=== PATIENT | female | born 1965 | race Caucasian/White ===

== ENCOUNTER 2017-06-10 12:20 | Outpatient (CLI) | payer MEDICARE | END 2017-06-10 12:21 | disposition home or self-care (01) | LOC: CP 12:20 | PROVIDERS: ATTEND Internal Medicine | DX: J44.9 Chronic obstructive pulmonary disease, unspecified (principal); J96.11 Chronic respiratory failure with hypoxia | CPT/HCPCS: 94060; 94727; 94729 ==

== ENCOUNTER 2017-07-05 04:56 | Inpatient (IN) | payer MEDICARE ==
[2017-07-05] MEDS ORDERED: Ondansetron HCl/PF 4 MG/2 ML Vial IVP PRN (07:50)
[2017-07-05] MEDS ORDERED: Acetaminophen 325 MG TAB PO PRN ×2 (07:51→11:52)
[2017-07-05] MEDS ORDERED: Ondansetron ODT 4 MG TAB PO PRN (07:51)
[2017-07-05 08:53] VITALS: BMI 16.6
[2017-07-05] MEDS ORDERED: cefTRIAXone\\ROCEPHIN 1 GM, Syringe 0.4 ML in Sterile Water 9.6 ML SLOW IVP SCH (09:00)
[2017-07-05] MEDS ORDERED: Mag-Al 1200 mg/1200 mg/30 ML UDCUP PO PRN (11:52)
[2017-07-05] MEDS ORDERED: Guaifenesin DM 100-10/5 ML UDCUP PO PRN (11:52)
[2017-07-05] MEDS ORDERED: Senokot 8.6 MG TAB PO PRN (11:52)
--- NOTE | 2017-07-05 13:17 | CON ---
DATE OF CONSULTATION: 07/05/2017 CONSULTING PHYSICIAN: Dr. Araya REASON FOR CONSULTATION: COPD exacerbation. HISTORY OF PRESENT ILLNESS: This is a 52-year-old female who sees Dr. Scott Louie in the office for pulmonary concerns. She has a history of COPD, asthma, Irlanda's granulomatosis. She also smo kes heavily and also smokes crack on an almost daily basis. She came to the emergency room today wi th a 2-3 day history of increasing shortness of breath. She was given some breathing treatments and feels better. PAST MEDICAL HISTORY: See above. PAST SURGICAL HISTORY: Neck fusion surgery and knee surgery. ALLERGIES: None. MEDICATIONS PRIOR TO ADMISSION: Trazodone, prednisone, guaifenesin, Seroquel, Levaquin, Atrovent, g abapentin, Depakote, Cymbalta, Cytoxan, Symbicort and ProAir HFA. FAMILY MEDICAL HISTORY: Remarkable for heart disease, hypertension, arthritis. SOCIAL HISTORY: See above. REVIEW OF SYSTEMS: Twelve point review of systems otherwise negative. PHYSICAL EXAMINATION: VITAL SIGNS: Temperature 97.8, pulse 92, respirations 16, O2 sat 94%, blood pressure 120/71. GENERAL: She is awake and alert and in no distress. HEENT: Unremarkable. NECK: No JVD, no bruits. LUNGS: Expiratory wheezing bilaterally, which I would characterize as mild. CARDIOVASCULAR: S1, S2 regular, without murmur, rub or gallop. ABDOMEN: Soft and nontender. EXTREMITIES: No clubbing, cyanosis, or edema. LABORATORY AND X-RAY FINDINGS: PFTs done recently demonstrated severe obstructive ventilatory impai rment. Her alpha 1 trypsin phenotype was MZ, but her level was 113.8. ASSESSMENT: 1. Chronic obstructive pulmonary disease with exacerbation. 2. Tobacco and cocaine abuse. 3. Heterozygote MZ for alpha 1 antitrypsin. 4. History of Irlanda's granulomatosis, currently under therapy through another provider - I am not completely sure of the history on that. RECOMMENDATIONS: I agree with high dose steroids, nebulization treatments and empiric antibiotics. Currently, her x-ray does not show any evidence of pneumonia. She has been told she needs to quit smoking tobacco and crack cocaine, although I doubt that she will comply with either. She is not a candidate for alpha 1 antitrypsin infusion therapy at this time.
[2017-07-05] MEDS: Nicotine 21 MG PATCH TOP SCH (13:49)
[2017-07-05] MEDS: Sodium Chloride 0.9% 1,000 ML IV SCH (13:49)
--- NOTE | 2017-07-05 14:10 | HP ---
REASON FOR ADMISSION: COPD exacerbation. HISTORY OF PRESENT ILLNESS: The patient gives history of having shortness of breath from last few days which has been gradually worsening. She took nebulization all day yesterday, which did not give any relief. She has been coughing up greenish yellow sputum. Had a fever of 101.3 degrees when she arrived at [facility] from where she was transferred here for higher level of care. The patient continues to smoke 1 pack a day. No complaints of chest pain or palpitation. Patient has exertional shortness of breath. No complaints of PND or abdominal pain. PAST MEDICAL AND SURGICAL HISTORY: History of Irlanda's vasculitis, COPD, dyslipidemia, hypertension, chronic back pain, COPD, right ankle surgery, neck surgery, insomnia, depression. CURRENT MEDICATIONS: Patient takes prednisone 20 mg daily, and has been doing so for the last one year, albuterol inhaler and nebulization q.6 hourly p.r.n., Seroquel 200 mg p.o. at bedtime, trazodone 400 mg p.o. at bedtime. ALLERGIES: SULFA. PERSONAL HISTORY: Smokes one pack a day, denies abusing alcohol or drugs. FAMILY HISTORY: Mother has had history of RI. Father has diabetes. Both are living. Power of compliance attorney is patient's mom. CODE STATUS: DNR. REVIEW OF SYSTEMS: The following complete review of systems was negative, unless otherwise mentioned in the HPI or below: Constitutional: Weight loss or gain, ability to conduct usual activities. Skin: Rash, itching. Eyes: Double vision, pain. ENT/Mouth: Nose bleeding, neck stiffness, pain, tenderness. Cardiovascular: Palpitations, dyspnea on exertion, orthopnea. Respiratory: Shortness of breath, wheezing, cough, hemoptysis, fever or night sweats. Gastrointestinal: Poor appetite, abdominal pain, heartburn, nausea, vomiting, constipation, or diarrhea. Genitourinary: Urgency, frequency, dysuria, nocturia. Musculoskeletal: Pain, swelling. Neurologic/Psychiatric: Anxiety, depression. Allergy/Immunologic: Skin rash, bleeding tendency. PHYSICAL EXAMINATION: GENERAL: The patient is a 52-year-old female who is currently not in any acute distress. VITAL SIGNS: Blood pressure 108/76, pulse 98 per minute, respiratory rate 20 per minute, temperature 97.9 degrees, had a temperature of 101.3 degrees at [facility], saturating 94% on 2 liters nasal cannula. NECK: Supple. No elevated JVD. HEENT: Extraocular muscles intact. Pupils reacting to light. Oral cavity mucous membranes are dry. No exudates or congestion. CARDIOVASCULAR SYSTEM: S1, S2 heard. Tachycardic, no murmur. RESPIRATORY: Air entry 1+ bilaterally. Scattered wheezes plus bilaterally. ABDOMEN: Soft, bowel sounds heard. No tenderness, rigidity or guarding. EXTREMITIES: Mild peripheral edema, no calf tenderness. VASCULAR SYSTEM: Peripheral pulses 1+ bilateral. No ischemic ulcerations or gangrene. CENTRAL NERVOUS SYSTEM: No gross focal deficits seen. Patient is alert, awake , oriented x3. PSYCHIATRIC: The patient's mood is euthymic. No hallucinations or delusions. LABORATORY AND X-RAY FINDINGS: White count of 7, H\T\H 12 and 36, platelet count is 155,000 with 85% neutrophils, MCV is 111. PT/INR/PTT 13, 1.0 and 41. Serum chloride is 97. Serum sodium is 131, BUN 17, creatinine 0.7, glucose 85. Liver enzymes within normal limits. Cardiac enzymes first set is negative. BNP is 14. Liver enzymes are within normal limits. UA is negative for any urinary tract infection. Chest x-ray done shows hyperinflated lungs with no acute consolidation or alveolar edema. EKG done shows normal sinus rhythm at 91 beats per minute. There is incomplete RBBB seen. CLINICAL IMPRESSION AND PLAN: Patient will be admitted to medical floor for acute COPD exacerbation with ongoing smoking and history of Irlanda's vasculitis. She is steroid dependent from last [address] her on Solu-Medrol 40 mg IV q.6 hourly. She had a temperature of 101 and will be started on levofloxacin. There is no acute infiltrate. There is no acute consolidation seen on the x-ray, but she has chronic changes seen in the lungs. She will be on DuoNebs q.6 hourly. We will continue her on Pepcid. Gentle hydration with normal saline at 40 mL per hour. Patient will also continue her Seroquel and hold back on her trazodone for now. Due to the elevated MCV, we will obtain folic acid and B12 levels. I have consulted Dr. Nevarez, who was cloth sponger for Dr. Louie her structural iron erector. We will continue to closely monitor her on medical floor. [facility]
[2017-07-05] MEDS: Mometasone/Formoterol 120 PUFF INHALER INH SCH (19:04)
[2017-07-05] MEDS: Famotidine 20 MG TAB PO SCH (19:52)
[2017-07-05] MEDS: guaiFENesin ER 600 MG TAB PO SCH (19:52)
[2017-07-05] MEDS ORDERED: FLU VACC QS2017-18 36 mo. & older 0.5 ML SYRINGE IM ONE (21:00)
[2017-07-06 05:32] LABS: #Lymphocytes 0.6 thou/uL (1.20-3.40); #Monocytes 0.2 thou/uL (0.11-0.59); #Neutrophils 7.6 thou/uL (1.40-6.50); %Basophils 0.2 % (0.0-1.0); %Eosinophils 0.2 % (0.0-10.0); %Monocytes 2.6 % (0.0-10.0); Hematocrit 39.5 % (36.0-47.0); Mean Platelet Volume 7.2 fL (7.4-10.4); Red Blood Cell (RBC) Count 3.45 mill/uL (4.20-5.40); White Blood Cell (WBC) Count 8.4 thou/uL (4.8-10.8)
[2017-07-06] MEDS: Mometasone/Formoterol 120 PUFF INHALER INH SCH ×2 (05:58→19:13)
[2017-07-06 06:05] LABS: Anion Gap 13 mmol/L (10-20); BUN (Urea Nitrogen) 24 mg/dL (9.8-20.1); Calc. Creatinine Clearance 61 mL/min (70-130); Carbon Dioxide 23 mmol/L (22-29); Chloride 101 mmol/L (98-107); Estimated GFR-MDRD 74
[2017-07-06] MEDS: Famotidine 20 MG TAB PO SCH ×2 (08:05→21:16)
[2017-07-06] MEDS: Enoxaparin Sodium 30 MG/0.3 ML SYRINGE SC SCH (08:05)
[2017-07-06] MEDS: guaiFENesin ER 600 MG TAB PO SCH ×2 (08:05→21:16)
--- NOTE | 2017-07-06 08:52 | PRG ---
DATE OF SERVICE: 07/06/2017 SUBJECTIVE: She feels better today. She is still very anxious. PHYSICAL EXAMINATION: VITAL SIGNS: Temperature is 98.0, pulse 94, respiration rate 16, O2 sat 93% on 2 liters, blood pres sure 106/71. HEENT: Unremarkable. NECK: No JVD. LUNGS: Expiratory wheezing bilaterally. CARDIOVASCULAR: S1 and S2 regular. ABDOMEN: Soft. EXTREMITIES: No edema. LABORATORY DATA: White blood cell count 8.4, hematocrit 39, and platelet count 179. Sodium 133, po tassium 4.2, chloride 101, CO2 23, BUN 24, creatinine 0.8, and glucose 194. ASSESSMENT: 1. Chronic obstructive pulmonary disease with exacerbation. 2. Tobacco and cocaine abuse. PLAN: 1. We will continue IV steroids and aggressive nebulization treatment for at least the next 24 hour s with hopeful discharge at that time. 2. The patient needs help with seeking therapy for her drug addictions.
[2017-07-06] MEDS: Sodium Chloride 0.9% 1,000 ML IV SCH (11:44)
[2017-07-06] MEDS: Nicotine 21 MG PATCH TOP SCH (11:45)
--- NOTE | 2017-07-06 12:13 | PDOC.PN ---
- Subjective Encounter Start Date: 07/06/17 Encounter Start Time: 10:40 Subjective: breathing better, still wheezing though -: wants her trazadone and seroquel for sleeping - Objective Resuscitation Status: Resuscitation Status DNR:Do Not Resuscitate MAR Reviewed: Yes Vital Signs & Weight: Vital Signs (12 hours) Temp Pulse Resp BP Pulse Ox 07/06/17 11:59 98.0 F 99 22 H 142/86 H 94 L 07/06/17 11:30 101 H 16 94 L 07/06/17 08:00 98 F 94 16 92 L 07/06/17 05:58 94 16 93 L 07/06/17 05:57 94 16 93 L 07/06/17 04:00 98.0 F 94 20 106/71 93 L 07/06/17 00:41 87 20 94 L Weight Weight 106 lb I&O: 07/05/17 07/06/17 07/07/17 06:59 06:59 06:59 Intake Total 1620 Output Total 0 Balance 1620 Result Diagrams: 07/06/17 04:42 07/06/17 04:42 Phys Exam - Physical Examination HEENT: PERRLA, moist MMs Neck: no JVD, supple Respiratory: no rales, wheezing present Cardiovascular: RRR, no significant murmur, no rub Gastrointestinal: soft, non-tender, positive bowel sounds Musculoskeletal: no edema, pulses present Neurological: non-focal, moves all 4 limbs Psychiatric: A&O x 3 Dx/Plan (1) Acute respiratory failure with hypoxia Code(s): J96.01 - ACUTE RESPIRATORY FAILURE WITH HYPOXIA Status: Resolved (2) COPD exacerbation Code(s): J44.1 - CHRONIC OBSTRUCTIVE PULMONARY DISEASE W (ACUTE) EXACERBATION Status: Acute (3) Cocaine abuse Code(s): F14.10 - COCAINE ABUSE, UNCOMPLICATED Status: Chronic (4) Anxiety and depression Code(s): F41.9 - ANXIETY DISORDER, UNSPECIFIED; F32.9 - MAJOR DEPRESSIVE DISORDER, SINGLE EPISODE, UNSPECIFIED Status: Chronic (5) Bipolar disorder Code(s): F31.9 - BIPOLAR DISORDER, UNSPECIFIED Status: Chronic (6) Tobacco abuse Code(s): Z72.0 - TOBACCO USE Status: Chronic - Plan seroquel bid and trazadone HS, this was d/w patient -: she is dnr and donot want her to be oversedated with current copd flare -: has not provided urine sample for UDS -: on levaquin, steroids and duonebs * . Review of Systems - Medications/Allergies Allergies/Adverse Reactions: Allergies Allergy/AdvReac Type Severity Reaction Status Date / Time Sulfa (Sulfonamide Allergy Verified 04/19/16 07:49 Antibiotics) Medications: Current Medications Acetaminophen (Tylenol) 650 mg PO Q4H PRN PRN Reason: Headache/Fever or Pain Al Hydroxide/Mg Hydroxide (Maalox) 30 ml PO Q6H PRN PRN Reason: Heartburn or Indigestion Last Admin: 07/05/17 19:52 Dose: 30 ml Albuterol/Ipratropium (Duoneb) 3 ml NEB [id number] [facility] Last Admin: 07/06/17 11:30 Dose: 3 ml Enoxaparin Sodium (Lovenox) 30 mg SC 0900 [facility] Last Admin: 07/06/17 08:05 Dose: 30 mg Famotidine (Pepcid) 20 mg PO BID [facility] Last Admin: 07/06/17 08:05 Dose: 20 mg Guaifenesin (Mucinex) 600 mg PO Q12HR [facility] Last Admin: 07/06/17 08:05 Dose: 600 mg Guaifenesin/Dextromethorphan (Robitussin Dm) 15 ml PO Q4H PRN PRN Reason: Cough Levofloxacin 500 mg/ Device 100 mls @ 100 mls/hr IVPB 0900 [facility] Last Admin: 07/06/17 08:24 Dose: 100 mls Methylprednisolone Sodium Succinate (Solu-Medrol) 40 mg IVP Q6HR [facility] Last Admin: 07/06/17 11:44 Dose: 40 mg Mometasone Furoate/Formoterol Fumar (Dulera 200 Mcg/5 Mcg Inhaler) 2 puff INH BID-RT [facility] Last Admin: 07/06/17 05:58 Dose: 2 puff Nicotine (Nicoderm Patch) 21 mg TOP Q24HR [facility] Last Admin: 07/06/17 11:45 Dose: 21 mg Quetiapine Fumarate (Seroquel) 100 mg PO BID [facility] Senna (Senokot) 2 tab PO HSPRN PRN PRN Reason: Constipation Trazodone HCl (Desyrel) 150 mg PO HS [facility]
[2017-07-06 12:29] LABS: Amphetamine Not Detected (NotDetected); Methadone Not Detected (NotDetected); Methamphetamine Not Detected (NotDetected)
[2017-07-06] MEDS ORDERED: traZODone HCl 150 MG TAB PO SCH (21:00)
[2017-07-07] MEDS: Mometasone/Formoterol 120 PUFF INHALER INH SCH (06:52)
--- NOTE | 2017-07-07 08:52 | PRG ---
DATE OF SERVICE: 07/07/2017 The patient is doing well and wants to go home. PHYSICAL EXAMINATION: VITAL SIGNS: Temperature 98.3, pulse 110, respirations 14, O2 sat 93% on 2 liters. HEENT: Unremarkable. NECK: No JVD. CHEST: Clear without wheezing. CARDIAC: S1 and S2 regular. ABDOMEN: Soft. EXTREMITIES: No edema. ASSESSMENT: 1. Chronic obstructive pulmonary disease exacerbation. 2. Tobacco and crack cocaine abuse. PLAN: She can be discharged to home. She has been counseled not smoke and not to use crack cocaine . She needs to be tapered off her steroids over about a week. I would give her no more than 7 days of antibiotics in total.
[2017-07-07] MEDS ORDERED: predniSONE 20 MG TAB PO SCH (09:00)
[2017-07-07] MEDS: Famotidine 20 MG TAB PO SCH (09:07)
[2017-07-07] MEDS: guaiFENesin ER 600 MG TAB PO SCH (09:07)
[2017-07-07] MEDS: Enoxaparin Sodium 30 MG/0.3 ML SYRINGE SC SCH (09:08)
--- NOTE | 2017-07-07 09:36 | PDOC.PN ---
- Subjective Encounter Start Date: 07/07/17 Encounter Start Time: 08:40 Subjective: breathing better, wants to go home -: is amb in hallway - Objective Resuscitation Status: Resuscitation Status DNR:Do Not Resuscitate MAR Reviewed: Yes Vital Signs & Weight: Vital Signs (12 hours) Pulse Resp Pulse Ox 07/07/17 06:52 110 H 14 07/07/17 00:32 108 H 18 93 L Weight Admit Weight 106 lb Weight 106 lb I&O: 07/06/17 07/07/17 07/08/17 06:59 06:59 06:59 Intake Total 1620 Output Total 0 Balance 1620 Result Diagrams: 07/06/17 04:42 07/06/17 04:42 Phys Exam - Physical Examination HEENT: PERRLA, moist MMs Neck: no JVD, supple Respiratory: no wheezing, no rales rhonchi+ Cardiovascular: RRR, no significant murmur Gastrointestinal: soft, non-tender, positive bowel sounds Musculoskeletal: no edema, pulses present Neurological: non-focal, moves all 4 limbs Psychiatric: A&O x 3 Dx/Plan (1) Acute respiratory failure with hypoxia Code(s): J96.01 - ACUTE RESPIRATORY FAILURE WITH HYPOXIA Status: Resolved (2) COPD exacerbation Code(s): J44.1 - CHRONIC OBSTRUCTIVE PULMONARY DISEASE W (ACUTE) EXACERBATION Status: Acute (3) Cocaine abuse Code(s): F14.10 - COCAINE ABUSE, UNCOMPLICATED Status: Chronic (4) Anxiety and depression Code(s): F41.9 - ANXIETY DISORDER, UNSPECIFIED; F32.9 - MAJOR DEPRESSIVE DISORDER, SINGLE EPISODE, UNSPECIFIED Status: Chronic (5) Bipolar disorder Code(s): F31.9 - BIPOLAR DISORDER, UNSPECIFIED Status: Chronic (6) Tobacco abuse Code(s): Z72.0 - TOBACCO USE Status: Chronic - Plan hemostable -: knows drug rehab options, has been before. -: may dc home * .
[2017-07-07 09:49] VITALS: BP 143/81
[2017-07-07 10:04] VITALS: TEMP 98.3
--- NOTE | 2017-07-07 13:06 | DIS ---
DATE OF ADMISSION: 07/05/2017 DATE OF DISCHARGE: 07/07/2017 DISCHARGE DISPOSITION: To home. PRIMARY DISCHARGE DIAGNOSES: Acute respiratory failure with hypoxia secondary to chronic obstructive pulmonary disease exacerbation, cocaine abuse. SECONDARY DISCHARGE DIAGNOSES: History of Irlanda's vasculitis, bipolar disorder, tobacco abuse, anxiety, depression, heterozygous MZ for alpha-1- antitrypsin. PROCEDURES DONE DURING HOSPITALIZATION: Chest x-ray done showed lungs to be hyperinflated with increased linear and interstitial density. Findings were suggestive of COPD. No focal consolidation were seen. Urine culture no growth. Blood cultures x2 no growth. Discharge hemoglobin and hematocrit 12 and 39, platelet count 179. Discharge BUN and creatinine is 24 and 0.8. Vitamin B12 of 408 and folic acid 15.4. One set of cardiac enzymes were negative. INPATIENT CONSULTS: Dr. Nevarez. DISCHARGE PLAN: Patient to follow up with her psychiatrist/[facility] in 2 weeks and primary care physician in 1 week. DISCHARGE MEDICATIONS: Albuterol inhaler q.6 hourly p.r.n., Levaquin 500 mg p.o. daily for another 6 days, Seroquel 100 mg p.o. twice daily, trazodone 150 mg p.o. at bedtime and prednisone tapering dose as prescribed over the course of 15 days. BRIEF COURSE DURING HOSPITALIZATION: Patient initially got admitted on the with complaints of cough with expectoration. She was also short of breath and wheezing. She had a fever of 101.3 degrees at [facility] prior to transfer here. She was essentially admitted for acute on chronic COPD exacerbation. She has a known history of tobacco abuse and Irlanda's vasculitis as well. She was placed on IV Solu-Medrol as patient was on steroids prior to arrival. She was also empirically placed on Levaquin. The patient has responded well with above measures, along with DuoNebs. She was evaluated by Dr. Nevarez for Pulmonology. The patient has remained hemodynamically stable and is ambulating on the floor. She is wanting to go home today. She has been cleared by Dr. Nevarez as well for discharge. She was counseled with regards to tobacco abuse and substance abuse. The patient has been to prior substance abuse rehabs and has resources in the community for the same and was encouraged to do so, and to stop her drug abuse completely. She is otherwise hemodynamically stable. Please see a [id number] documentation on [facility] for the day of discharge. [facility]
[2017-07-08] MEDS ORDERED: predniSONE 20 MG TAB PO SCH (08:00)
== END 2017-07-07 13:22 | disposition home or self-care (01) | DRG 189 ==
LOC: ERS 04:56 → 2SE 06:25 → T4-A 16:20
PROVIDERS: ADMIT Internal Medicine; ATTEND Internal Medicine
DX: J96.01 Acute respiratory failure with hypoxia (principal); M31.30 Wegener's granulomatosis without renal involvement; J44.1 Chronic obstructive pulmonary disease with (acute) exacerbation; I10 Essential (primary) hypertension; F17.210 Nicotine dependence, cigarettes, uncomplicated; E78.5 Hyperlipidemia, unspecified; G89.29 Other chronic pain; M54.9 Dorsalgia, unspecified; G47.00 Insomnia, unspecified; F32.9 Major depressive disorder, single episode, unspecified; Z88.2 Allergy status to sulfonamides; Z79.52 Long term (current) use of systemic steroids; F14.10 Cocaine abuse, uncomplicated; F31.9 Bipolar disorder, unspecified; F41.9 Anxiety disorder, unspecified
CPT/HCPCS: 36415; 80048; 80306; 82607; 82746; 85025; 87070; 87205; 90471; 90682; 90732; 93005; 94640; 99406; A4216; G0008; G0009; J0696; J1650; J1956; J2920; J7506; J7620; Q2036

== ENCOUNTER 2017-08-09 10:01 | Inpatient (IN) | payer MEDICARE ==
[2017-08-09] MEDS ORDERED: Lorazepam 1 MG TAB ONE (10:48)
[2017-08-09] MEDS ORDERED: Nitroglycerin 2% Ointment 1 INCH/1 GM Packet ONE (10:48)
[2017-08-09 11:52] LABS: Bilirubin Small (Negative); Blood, Urine Large (Negative); Glucose, Urine (Dipstick) Negative (Negative); Ketone, Urine Trace mg/dL (Negative); Nitrite Negative (Negative); Protein, Urine (Dipstick) 100 mg/dL (Neg-Trace); Urobilinogen 0.2 mg/dL (0.2-1.0)
[2017-08-09 11:54] LABS: Bacteria/HPF None Seen HPF (None Seen); WBC/HPF 0-3 HPF (0-3)
[2017-08-09 12:03] LABS: RBC/HPF GREATER THAN 50-TNTC HPF (0-3)
[2017-08-09 12:04] LABS: Yeast-All Forms None Seen HPF (None Seen)
[2017-08-09 12:11] LABS: Methamphetamine Detected (NotDetected)
[2017-08-09 12:12] LABS: Amphetamine Not Detected (NotDetected); Methadone Not Detected (NotDetected)
[2017-08-09 12:56] LABS: Troponin I Less than 0.010 ng/mL (< 0.028)
[2017-08-09 17:07] LABS: Troponin I Less than 0.010 ng/mL (< 0.028)
[2017-08-09] MEDS ORDERED: methylPREDNISolone Sod Succ/PF 125 MG/2 ML VIAL ONE (18:08)
[2017-08-09] MEDS ORDERED: Lorazepam 1 MG TAB PO PRN (22:10)
[2017-08-09] MEDS ORDERED: Guaifenesin DM 100-10/5 ML UDCUP PO PRN (22:10)
[2017-08-09] MEDS ORDERED: Acetaminophen 500 MG TAB PO PRN (22:10)
[2017-08-09] MEDS ORDERED: Ondansetron ODT 4 MG TAB PO PRN (22:10)
[2017-08-09] MEDS ORDERED: hydrALAZINE 20 MG/ML VIAL SLOW IVP PRN (22:10)
[2017-08-09] MEDS ORDERED: Benzonatate 100 MG CAP PO PRN (22:10)
[2017-08-09] MEDS ORDERED: cloNIDine 0.1 MG TAB PO PRN (22:10)
[2017-08-09] MEDS ORDERED: Ondansetron HCl/PF 4 MG/2 ML Vial IVP PRN ×2 (22:10→22:12)
[2017-08-09] MEDS ORDERED: Acetaminophen 325 MG TAB PO PRN (22:12)
[2017-08-09] MEDS ORDERED: Ondansetron ODT 4 MG TAB SL PRN (22:12)
[2017-08-09] MEDS ORDERED: Sodium Chloride 0.9% 1,000 ML IV SCH (22:12)
[2017-08-09] MEDS ORDERED: traZODone HCl 150 MG TAB PO SCH (22:30)
[2017-08-10] MEDS: Sodium Chloride 0.9% 1,000 ML IV SCH ×3 (00:15→19:39)
[2017-08-10] MEDS: cefTRIAXone\\ROCEPHIN 2 GM in Sodium Chloride 0.9% 100 ML IVPB SCH ×2 (00:16→22:29)
[2017-08-10] MEDS: Azithromycin 500 MG in Sodium Chloride 0.9% 250 ML 250 ML IVPB SCH ×2 (01:23→23:31)
[2017-08-10 05:26] LABS: Band 10 % (5-11); Hematocrit 45.5 % (36.0-47.0); Mean Platelet Volume 7.2 fL (7.4-10.4); Neutrophil 88 % (42-75); Red Blood Cell (RBC) Count 4.41 mill/uL (4.20-5.40); White Blood Cell (WBC) Count 13.3 thou/uL (4.8-10.8)
[2017-08-10 05:32] LABS: ALT (SGPT) 11 U/L (8-55); AST (SGOT) 18 U/L (5-34); Alkaline Phosphatase 85 U/L (40-150); Anion Gap 14 mmol/L (10-20); BUN (Urea Nitrogen) 25 mg/dL (9.8-20.1); Bilirubin, Total 0.2 mg/dL (0.2-1.2); Calc. Creatinine Clearance 0 mL/min (70-130); Calcium 9.4 mg/dL (7.8-10.44); Carbon Dioxide 22 mmol/L (22-29); Chloride 100 mmol/L (98-107); Estimated GFR-MDRD 57; Globulin 2.9 g/dL (2.4-3.5); Protein, Total 6.6 g/dL (6.0-8.3)
[2017-08-10] MEDS: Famotidine 20 MG TAB PO SCH ×2 (09:27→20:22)
[2017-08-10] MEDS: Nicotine 14 MG PATCH TD SCH (09:28)
[2017-08-10] MEDS: Lorazepam 2 MG/ML VIAL SLOW IVP PRN (17:31)
--- NOTE | 2017-08-10 19:25 | PDOC.PN ---
- Subjective Encounter Start Date: 08/10/17 Encounter Start Time: 18:40 Subjective: f/u for acute hypoxic resp failure secondary to COPD exacerbation. Overall -: improved and decreased SOB. Ambulating in halls without difficulty. - Objective Resuscitation Status: Resuscitation Status FULL:Full Resuscitation MAR Reviewed: Yes Vital Signs & Weight: Vital Signs (12 hours) Temp Pulse Resp BP Pulse Ox 08/10/17 16:25 98.4 F 92 16 127/67 98 08/10/17 11:15 98.6 F 94 25 H 162/88 H 94 L 08/10/17 09:29 98.7 F 90 18 95 08/10/17 09:15 98.7 F 90 18 158/85 H 95 I&O: 08/09/17 08/10/17 08/11/17 06:59 06:59 06:59 Intake Total 2360 Output Total 1400 Balance 960 Result Diagrams: 08/10/17 04:27 08/10/17 04:27 Additional Labs: Microbiology 08/09/17 11:37 Urine voided Urine Culture - Preliminary NO GROWTH AT 24 HOURS Laboratory Tests 08/09/17 08/09/17 07:01 11:37 WBC 20.6 H Urine Opiates Screen Detected H Ur Tricyclics Screen Detected H U Methamphetamines Scrn Detected H U Benzodiazepines Scrn Detected H U Cocaine Metab Screen Detected H U Cannabinoids Screen Detected H Radiology Reviewed by me: Yes (PCXR - ? infiltrate of LLL) EKG Reviewed by me: Yes (Tele - SR) Phys Exam - Physical Examination Constitutional: NAD anxious HEENT: PERRLA, oral pharynx no lesions Neck: no JVD, supple few basilar coarse sounds Cardiovascular: RRR Gastrointestinal: soft, non-tender, no distention, positive bowel sounds Musculoskeletal: no edema, pulses present Neurological: normal sensation, moves all 4 limbs Psychiatric: A&O x 3 Skin: normal turgor, cap refill <2 seconds Dx/Plan (1) Acute respiratory failure with hypoxia Code(s): J96.01 - ACUTE RESPIRATORY FAILURE WITH HYPOXIA Status: Acute Comment: Improved with pulmonary support and IV Solumedrol, continue current rx and monitor clinical response (2) COPD exacerbation Code(s): J44.1 - CHRONIC OBSTRUCTIVE PULMONARY DISEASE W (ACUTE) EXACERBATION Status: Acute Comment: Continue Duonebs, Solumedrol, Zithromax and Rocephin (3) Anxiety and depression Code(s): F41.9 - ANXIETY DISORDER, UNSPECIFIED; F32.9 - MAJOR DEPRESSIVE DISORDER, SINGLE EPISODE, UNSPECIFIED Status: Chronic (4) Bipolar disorder Code(s): F31.9 - BIPOLAR DISORDER, UNSPECIFIED Status: Chronic (5) Cocaine abuse Code(s): F14.10 - COCAINE ABUSE, UNCOMPLICATED Status: Chronic Comment: Counseled regarding cessation (6) Tobacco abuse Code(s): Z72.0 - TOBACCO USE Status: Chronic Comment: Not ready to quit (7) Irlanda's vasculitis Code(s): M31.30 - IRLANDA'S GRANULOMATOSIS WITHOUT RENAL INVOLVEMENT Status: Chronic Comment: Receiving chemotherapy as outpt - Plan continue antibiotics, respiratory therapy, out of bed/ambulate, DVT proph w/SCDs Stable overall -: Continue Rocephin and Zithromax -: Continue Solumedrol 40mg IV q6h -: Tobacco/Illicit drug cessation resources -: Saline lock IVF * Home in am
[2017-08-10] MEDS ORDERED: traZODone HCl 150 MG TAB PO SCH (21:00)
[2017-08-10 22:39] VITALS: BMI 18.6
[2017-08-11] MEDS: Lorazepam 2 MG/ML VIAL SLOW IVP PRN ×2 (02:52→08:38)
[2017-08-11] MEDS: Nicotine 14 MG PATCH TD SCH (05:22)
[2017-08-11] MEDS: Famotidine 20 MG TAB PO SCH (08:34)
--- NOTE | 2017-08-11 12:03 | HP ---
DATE OF ADMISSION: 08/09/2017 PRIMARY CARE PROVIDER: Hayes Fernández M.D. CHIEF COMPLAINT: Shortness of breath. HISTORY OF PRESENT ILLNESS: This is a 52-year-old female who presents to [facility] Emergency Department complaining of increased shortness of breath in the context of known chronic obstructive pulmonary disease, tobacco abuse, cocaine and marijuana use. The patient a dmits to smoking up to a pack or more of cigarettes daily and occasionally uses oxygen. The patient also with significant history of Irlanda's vasculitis receiving chemotherapy. The patient admitted t o increased chest tightness, wheezing with nonproductive cough. The patient denies any specific feve r or chills. The patient states she did use cocaine within the last 48 hours prior to this evaluatio n. The patient does state that she uses occasional albuterol inhaler, but has since run out of the m edication. The patient denied any recent exposure history, vaccinations, chest trauma or recent surg ical intervention. In the emergency room, patient underwent general evaluation including chest imagi ng showing chronic changes in bilateral lung deshpande. The patient received IV Solu-Medrol, bronchodil ator therapy with DuoNebs, transdermal nitro paste, and Ativan 1 mg. PAST MEDICAL HISTORY: 1. Chronic obstructive pulmonary disease. 2. Irlanda's vasculitis with current chemotherapy. 3. Dyslipidemia. 4. Hypertension. 5. Chronic back pain. 6. Anxiety/depression. 7. Bipolar disorder. 8. Polysubstance abuse. 9. Tobacco abuse. PAST SURGICAL HISTORY: 1. Status post right ankle repair. 2. Status post neck surgery with cervical fusion. CURRENT MEDICATIONS: 1. Trazodone 400 mg p.o. at bedtime. 2. Seroquel 200 mg p.o. at bedtime. 3. Proventil HFA 2 puffs inhaled q.6 hours p.r.n. ALLERGIES: SULFA. FAMILY HISTORY: Mother with myocardial infarction. Father with diabetes mellitus. SOCIAL HISTORY: Patient smokes up to a pack of cigarettes daily. Positive for cocaine and marijuana use actively. No alcohol use. REVIEW OF SYSTEMS: The following complete review of systems was negative, unless otherwise mentioned in the HPI or below: Constitutional: Weight loss or gain, ability to conduct usual activities. Skin: Rash, itching. Eyes: Double vision, pain. ENT/Mouth: Nose bleeding, neck stiffness, pain, tenderness. Cardiovascular: Palpitations, dyspnea on exertion, orthopnea. Respiratory: Shortness of breath, wheezing, cough, hemoptysis, fever or night sweats. Gastrointestinal: Poor appetite, abdominal pain, heartburn, nausea, vomiting, constipation, or diarr hea. Genitourinary: Urgency, frequency, dysuria, nocturia. Musculoskeletal: Pain, swelling. Neurologic/Psychiatric: Anxiety, depression. Allergy/Immunologic: Skin rash, bleeding tendency. Otherwise negative except as stated per HPI. PHYSICAL EXAMINATION: VITAL SIGNS: On admission, blood pressure 161/107, pulse 106, respiratory rate 18, temperature 97.9 degrees Fahrenheit, O2 saturation 93% on 4 liters per minute by nasal cannula. GENERAL APPEARANCE: This is an anxious appearing 52-year-old female, who appears older rajeev n stated age, in mild to moderate distress. HEENT: Pupils are equal, round, and reactive to light and accommodation. Extraocular muscles are in tact. No scleral icterus, no conjunctival injection. Nares patent. OP is clear. NECK: Supple, no cervical adenopathy, no thyromegaly, no carotid bruits, no JVD appreciated. Cervic al spine with full active and passive range of motion. No meningeal signs appreciated. CHEST: Diminished breath sounds with expiratory wheeze bilaterally. CARDIOVASCULAR: S1 and S2. ABDOMEN: Flat, soft, nontender, nondistended. Bowel sounds are positive in all four quadrants. The re is no hepatosplenomegaly, no abdominal bruits, no rebound or guarding appreciated. EXTREMITIES: Warm and dry with fair turgor. No clubbing, cyanosis or asymmetric edema appreciated. Pulses palpable distally at the dorsalis pedis, posterior tibial and popliteal arteries bilaterally. Capillary refill less than 2 seconds. NEUROLOGIC: Cranial nerves II-XII are grossly intact. No focal or lateralizing signs appreciated. PERTINENT LABORATORY DATA AND X-RAY FINDINGS: Sodium 132, potassium 4.3, chloride 100, CO2 22, BUN 2 5, creatinine 1.01, glucose is 165, calcium 9.4. LFTs within normal limits. Troponin I negative x3. CBC showed white blood cell count of 20.6, hemoglobin 14.6, hematocrit 46, MCV 103, and platelet co unt 201. Urine drug screen dated 08/09/2017 positive for opiates, tricyclics, methamphetamines, lei odiazepines, cocaine and cannabinoids. Portable chest x-ray dated 08/09/2017 showed increased inters titial markings bilaterally with increased markings in the left perihilar and left lung base. EKG rach dale 08/09/2017 by my interpretation, sinus tachycardia with heart rates in the low 100s. Attenuated R waves noted in the precordial leads. Left axis deviation. Incomplete right bundle branch pattern. No acute ST-T wave changes appreciated. ASSESSMENT AND PLAN: 1. Acute hypoxic respiratory failure secondarily to #2. 2. Patient will be admitted to the telemetry unit. We will continue Solu-Medrol 40 mg IV q.6 hours. Continue Zithromax 500 mg IV q.24 hours with additional Rocephin 2 grams IV q.24 hours. Continue b ronchodilator therapy with DuoNeb q.4 hours p.r.n. 3. Chronic obstructive pulmonary disease exacerbation. See #1 above. Continue aggressive pulmonary supportive measures. 4. Polysubstance abuse. We will offer cessation resources prior to discharge. The patient will fol low up with [facility] on an outpatient basis. 5. Anxiety/depression/bipolar disorder. We will continue outpatient medication regimen including tr azodone and Seroquel. General supportive measures. Outpatient followup with [facility]. 6. Irlanda's vasculitis. We will follow up for continuation of maintenance chemotherapy on an outpa tient basis. 7. Prophylaxis. Sequential compression devices while in bed. Pepcid 20 mg p.o. b.i.d. 8. Code status is FULL. Surrogate medical decision maker is patient's mother.
[2017-08-11 12:31] VITALS: BP 136/85; TEMP 97.3
--- NOTE | 2017-08-11 12:31 | DIS ---
DATE OF ADMISSION: 08/09/2017 DATE OF DISCHARGE: 08/11/2017 DISCHARGE DIAGNOSES: 1. Acute hypoxic respiratory failure secondarily to #1, improved. 2. Chronic obstructive pulmonary disease exacerbation, resolving. 3. Noncompliance. 4. Anxiety/depression, severe. 5. Bipolar disorder. 6. Cocaine abuse. 7. Tobacco abuse. 8. Irlanda's vasculitis with current chemotherapy. CONSULTATIONS: None. PERTINENT LABORATORY DATA AND X-RAY FINDINGS: CBC showed white blood cell count ranging between 13.3 -20.6. Urine drug screen positive for opiates, tricyclics, methamphetamines, benzodiazepines, cocain e and cannabinoids. Urine culture dated 08/09/2017 showed less than 10,000 colonies of normal skin f ryan. Portable chest x-ray dated 08/09/2017 showed chronic changes in bilateral lung deshpande with int erstitial changes in the left infrahilar and left lower lobe. HOSPITAL COURSE: Patient was admitted to the telemetry unit after initially presenting with increase d shortness of breath in the context of known chronic obstructive pulmonary disease and ongoing tobac co abuse. The patient was treated with aggressive bronchodilator therapy in addition to Solu-Medrol and antibiotic coverage for suspected COPD exacerbation. The patient rapidly clinically improved wit h oxygen supplementation, pulmonary supportive measures and Solu-Medrol. The patient was counseled r egarding the need for discontinuation of tobacco as well as cocaine and illicit drugs as these are de trimental to patient's ongoing health. The patient was titrated off oxygen supplementation, maintain ing O2 saturations on room air in the mid 90% range. Overall, patient remained clinically stable thr ough the remainder the hospital course with telemetry monitoring showing sinus mechanism with heart r ates in the 90s. The patient is stable and ready for discharge on 08/11/2017. DISCHARGE MEDICATIONS: 1. Albuterol sulfate 0.63 mg nebulized q.4 hours p.r.n. 2. Proventil HFA 2 puffs inhaled q.6 hours p.r.n. 3. Omnicef 300 mg 1 tab p.o. b.i.d. 4. Prednisone 20 mg p.o. b.i.d. x3 days, followed by 20 mg p.o. daily x 3 days, followed by 10 mg p. o. daily x3 days. 5. Seroquel 200 mg p.o. at bedtime. 6. Trazodone 400 mg p.o. at bedtime. FOLLOWUP: Patient to follow up with Dr. Palm within 7 days of discharge. CONDITION ON DISCHARGE: Fair. ACTIVITY: Ad alejandra. DIET: Heart healthy. CODE STATUS: FULL. DISPOSITION: Home 08/11/2017.
== END 2017-08-11 13:02 | disposition home or self-care (01) | DRG 190 ==
LOC: ERS 10:01 → ERHOLD 12:23 → 2NO 22:12
PROVIDERS: ADMIT Family Medicine; ATTEND Family Medicine
DX: J44.1 Chronic obstructive pulmonary disease with (acute) exacerbation (principal); J96.01 Acute respiratory failure with hypoxia; M31.30 Wegener's granulomatosis without renal involvement; F17.210 Nicotine dependence, cigarettes, uncomplicated; Z91.19 Patient's noncompliance with other medical treatment and regimen; F31.9 Bipolar disorder, unspecified; F41.9 Anxiety disorder, unspecified; F14.10 Cocaine abuse, uncomplicated; E78.5 Hyperlipidemia, unspecified; I10 Essential (primary) hypertension
CPT/HCPCS: 36415; 80053; 80306; 81003; 81015; 85007; 85027; 87086; 93005; 94640; 96374; A4216; J0456; J0696; J2060; J2920; J2930; J7050; J7620

== ENCOUNTER 2018-12-02 21:02 | Inpatient (IN) | payer MEDICARE ==
--- NOTE | 2018-12-02 21:51 | PDOC.FPRHP ---
- History of Present Illness Chief Complaint: SOB ED Course: Solumedrol 125mg, Duonebs x3, Mg 2g, Azithromycin 500mg CXR- no infection - Allergies/Adverse Reactions Allergies Allergy/AdvReac Type Severity Reaction Status Date / Time Sulfa (Sulfonamide Allergy Verified 08/09/17 22:19 Antibiotics) - Home Medications Medication Instructions Recorded Confirmed Type Albuterol Sulfate [Albuterol 0.63 mg NEB Q4HR PRN 08/10/17 08/10/17 History Sulfate Neb] QUEtiapine Fumarate [SEROquel] 200 mg PO HS 08/10/17 08/10/17 History traZODone HCl [Trazodone HCl] 400 mg PO HS 08/10/17 08/10/17 History Albuterol Sulfate [Proventil Hfa] 2 puff INH Q6H PRN #1 inh 08/11/17 Rx Cefdinir [Omnicef] 300 mg PO BID #10 cap 08/11/17 Rx predniSONE 10 mg PO QAM-WM #21 tab 08/11/17 Rx - History PMHx: PSHx: FHx: Social: - Vital signs BP: 128/74 HR: 97 RR: 20 Tmax: 98.7 Pox: 92% on 2L Wt: FMR H&P: Upper Level - Plan Date/Time: 12/02/18 2151 I, [], have evaluated this patient and agree with findings/plan as outlined by internet marketing executive resident. Pertinent changes/additions are listed here.
[2018-12-02] MEDS ORDERED: Magnesium 2 GM/50 ML BAG (IN WATER) ONE (21:58)
[2018-12-03 01:06] VITALS: BMI 14.2
[2018-12-03] MEDS ORDERED: Ondansetron ODT 4 MG TAB SL PRN (01:45)
[2018-12-03] MEDS ORDERED: Sodium Chloride 0.9% 1,000 ML IV SCH (01:45)
[2018-12-03] MEDS ORDERED: Ondansetron PF 4 MG/2 ML Vial IVP PRN ×3 (01:45→10:26)
[2018-12-03] MEDS ORDERED: Acetaminophen 325 MG TAB PO PRN ×2 (01:45→10:26)
[2018-12-03] MEDS ORDERED: cloNIDine 0.1 MG TAB PO PRN (10:26)
[2018-12-03] MEDS ORDERED: Ondansetron ODT 4 MG TAB PO PRN ×2 (10:26)
[2018-12-03] MEDS: cefTRIAXone\\ROCEPHIN 1 GM in Sodium Chloride 0.9% 100 ML IVPB SCH (11:26)
[2018-12-03] MEDS: Nicotine 14 MG PATCH TD SCH (11:27)
--- NOTE | 2018-12-03 11:37 | HP ---
PRIMARY CARE PHYSICIAN: Through the [facility]. SCHOOL AGE TEACHER: Dr. Louie. CHIEF COMPLAINT: "I have a hard time breathing." HISTORY OF PRESENT ILLNESS: Ms. Sanchez is a pleasant 53-year-old female, who has a history of chronic respiratory failure due to COPD. She is on home oxygen; however, she does not use it regularly. She also has a history of pulmonary Irlanda's. She also has a history of pulmonary Irlanda's. She was in her usual state of health until approximately 3 days ago when she started getting difficulty breathing. She says it started like a sinus infection. She is having a sore throat and sinus drainage. She thinks it was because she was helping a friend do some work around the house. She then started coughing up some yellow phlegm, which is a lot thicker than usual as well. She also had some chills and some pain in the left side of her chest. She says it was on the top of her left lung, which was she "says was hurting." She also was noting a bit of aching all over, and as a result of these conditions, she came to the ER for evaluation. In the ER, she had a chest x-ray, which was essentially clear; however, she did not get significant relief after several DuoNeb's, and for this reason, she was transferred to our facility for further treatment. The patient denies any hemoptysis. She denies any epistaxis and otherwise no other significant complaints. She also states that her weight has been her usual weight. She says she always runs around 90 pounds. REVIEW OF SYSTEMS: All systems were reviewed and are negative except for that mentioned in the history of present illness. PAST MEDICAL HISTORY: Significant for COPD and chronic respiratory failure with hypoxemia, Irlanda's granulomatosis, bipolar disorder, anxiety, history of polysubstance abuse, and history of continued tobacco abuse. PAST SURGICAL HISTORY: She has had right ankle repair and cervical fusion. ALLERGIES: SULFA. FAMILY HISTORY: There is a history of diabetes in her father and grandmother as well had diabetes, and her niece had Irlanda's granulomatosis as well. SOCIAL HISTORY: She smokes about a pack of cigarettes a day for 40 years. Denies any alcohol use. She is single. No children. She has not designated any medical decision maker, and she would like to be a full code. CURRENT MEDICATIONS: Include, 1. Seroquel 200 mg at bedtime. 2. Trazodone 400 mg at bedtime. 3. Albuterol inhaler q.6 as needed. PHYSICAL EXAMINATION: GENERAL: She is alert and oriented. She appears to be in no acute distress. She is a very thin in appearance. She is 5 feet 7 inches. She is 90 pounds, and her BMI was 14.2, and she is chronically ill appearing. VITAL SIGNS: Blood pressure is 137/83, heart rate is 82, respiratory rate of 20, and temperature is 98.4. HEENT: Her pupils are equal, round, and reactive. Extraocular muscles are intact. Her sclerae are anicteric. Throat, no erythema, no exudates. NECK: No adenopathy. No bruits. LUNGS: She has diminished breath sounds. Very faint expiratory wheeze. No rales. CARDIOVASCULAR: She had a normal S1, S2. I did not appreciate an S3 or S4. No murmurs, clicks, or rubs. ABDOMEN: Scaphoid, soft, nontender, and nondistended. Positive for bowel sounds. No rebound. No guarding. EXTREMITIES: There is no edema. No cyanosis. No calf tenderness. No joint effusions. NEUROLOGIC: Her cranial nerves 2 through 12 are grossly intact. Muscle strength is 5/5 in both her upper and lower extremities. LABORATORY RESULTS: These are taken from the [facility]. Her white blood cell count is 7.6, hemoglobin is 16.2, hematocrit is 50.4, and platelet count is 140. Sodium is 142, potassium is 4.0, chloride is 101, CO2 is 29, BUN of 22, creatinine is 0.77, glucose . Troponin less than 0.010. She had a chest x-ray, which by my reading, showed changes consistent with COPD. There was no evidence of any infiltrates or effusion. On her EKG, it is sinus, the rate was 82. She had an incomplete right bundle-branch block also by my reading. ASSESSMENT: This is a pleasant 53-year-old female, who presents to the emergency room with acute on chronic respiratory failure, likely as a result of chronic obstructive pulmonary disease exacerbation. She will be admitted to the medical floor as it will likely take her more than 2 midnights to resolve, and placed her on DuoNebs, steroids, and empiric antibiotics. We will also add a long-acting beta agonist. 1. Generalized anxiety. We will continue trazodone and Seroquel. 2. Tobacco abuse. She has been counseled on the need for tobacco cessation. 3. She denies a history of hypertension or dyslipidemia, which were listed in her medical records. Job ID: [id number]
[2018-12-03] MEDS ORDERED: Azithromycin 500 MG in Sodium Chloride 0.9% 250 ML 250 ML IVPB SCH (18:00)
[2018-12-03] MEDS: Mometasone/Formoterol 120 PUFF INHALER INH SCH (19:06)
[2018-12-03] MEDS: traZODone HCl 50 MG TAB PO SCH (20:33)
[2018-12-03] MEDS: guaiFENesin ER 600 MG TAB PO SCH (20:34)
[2018-12-03] MEDS: Famotidine 20 MG TAB PO SCH (20:34)
[2018-12-04] MEDS: Mometasone/Formoterol 120 PUFF INHALER INH SCH ×2 (07:09→18:39)
[2018-12-04 07:11] LABS: #Eosinphils 0.1 thou/uL (0.0-0.7); #Lymphocytes 0.8 thou/uL (1.20-3.40); #Monocytes 0.4 thou/uL (0.11-0.59); #Neutrophils 3.2 thou/uL (1.40-6.50); %Basophils 0.9 % (0.0-1.0); %Eosinophils 1.3 % (0.0-10.0); %Lymphocytes 17.8 % (21.0-51.0); Hemoglobin 13.6 g/dL (12.0-16.0); Mean Corpuscular HGB CONC 32.8 g/dL (32.0-36.0); Mean Corpuscular Hemoglobin 34.2 pg (27.0-31.0); Mean Platelet Volume 7.8 fL (7.4-10.4); Platelet Count 148 thou/uL (130-400); RBC Distribution Width 11.2 % (11.5-14.5); Red Blood Cell (RBC) Count 3.98 mill/uL (4.20-5.40); White Blood Cell (WBC) Count 4.4 thou/uL (4.8-10.8)
[2018-12-04 07:43] LABS: Anion Gap 12 mmol/L (10-20); BUN (Urea Nitrogen) 21 mg/dL (9.8-20.1); Calc. Creatinine Clearance 59 mL/min (70-130); Calcium 8.4 mg/dL (7.8-10.44); Carbon Dioxide 24 mmol/L (22-29); Chloride 113 mmol/L (98-107); Estimated GFR-MDRD 86; Glucose 85 mg/dL (70-105); Potassium 4.6 mmol/L (3.5-5.1); Sodium 144 mmol/L (136-145)
[2018-12-04] MEDS: Enoxaparin Sodium 40 MG/0.4 ML SYRINGE SC SCH (08:33)
[2018-12-04] MEDS: guaiFENesin ER 600 MG TAB PO SCH ×2 (08:33→20:47)
[2018-12-04] MEDS: Famotidine 20 MG TAB PO SCH ×2 (08:33→20:47)
[2018-12-04] MEDS ORDERED: methylPREDNISolone Sod Succ 40 MG VIAL IVP SCH (09:00)
[2018-12-04] MEDS: Nicotine 14 MG PATCH TD SCH (10:13)
[2018-12-04] MEDS: cefTRIAXone\\ROCEPHIN 1 GM in Sodium Chloride 0.9% 100 ML IVPB SCH (10:49)
--- NOTE | 2018-12-04 14:42 | PDOC.PN ---
- Subjective Encounter Start Date: 12/04/18 Encounter Start Time: 14:40 Ms. Sanchez was seen today in follow-up of COPD exacerbation. She feeling a little better, but admits to continue cough with thick yellow phlem. - Objective Resuscitation Status - Order Detail: 12/03/18 10:20 Resuscitation Status Routine Resuscitation Status: FULL: Full Resuscitation MAR Reviewed: Yes Vital Signs & Weight: Vital Signs (12 hours) Temp Pulse Resp BP Pulse Ox 12/04/18 13:30 76 16 97 12/04/18 08:30 96 12/04/18 08:00 97.8 F 73 18 135/85 96 12/04/18 07:12 91 18 96 12/04/18 07:09 81 16 96 12/04/18 04:00 98.0 F 73 18 109/68 96 Weight Admit Weight 90 lb 12.8 oz Weight 90 lb 12.8 oz I&O: 12/03/18 12/04/18 12/05/18 06:59 06:59 06:59 Intake Total 1297 820 Balance 1297 820 Result Diagrams: 12/04/18 06:13 12/04/18 06:13 Phys Exam - Physical Examination HEENT: PERRLA Respiratory: no wheezing decreased breath sounds Cardiovascular: RRR, no significant murmur, no rub Gastrointestinal: soft, non-tender, no distention, positive bowel sounds Musculoskeletal: no edema, pulses present Dx/Plan (1) Acute on chronic respiratory failure with hypoxemia Code(s): J96.21 - ACUTE AND CHRONIC RESPIRATORY FAILURE WITH HYPOXIA Status: Acute (2) COPD exacerbation Code(s): J44.1 - CHRONIC OBSTRUCTIVE PULMONARY DISEASE W (ACUTE) EXACERBATION Status: Acute Comment: Continue Duonebs, Solumedrol, Zithromax and Rocephin (3) Anxiety and depression Code(s): F41.9 - ANXIETY DISORDER, UNSPECIFIED; F32.9 - MAJOR DEPRESSIVE DISORDER, SINGLE EPISODE, UNSPECIFIED Status: Chronic (4) Tobacco abuse Code(s): Z72.0 - TOBACCO USE Status: Chronic Comment: Not ready to quit - Plan * Acute on chronic respiratory failure with hypoxemia- continue treatments with Duonebs, and Dulera. Will change steroids to p.o., as well as antibiotics * Anxiety and depression- stable * Tobacco abuse- discussed on admission .
[2018-12-04] MEDS: traZODone HCl 50 MG TAB PO SCH (20:46)
[2018-12-05 00:16] VITALS: TEMP 98
[2018-12-05] MEDS: Mometasone/Formoterol 120 PUFF INHALER INH SCH (06:31)
[2018-12-05 07:50] VITALS: BP 128/83
[2018-12-05] MEDS ORDERED: predniSONE 20 MG TAB PO SCH (08:00)
[2018-12-05] MEDS: Famotidine 20 MG TAB PO SCH (08:12)
[2018-12-05] MEDS: guaiFENesin ER 600 MG TAB PO SCH (08:12)
[2018-12-05] MEDS: Enoxaparin Sodium 40 MG/0.4 ML SYRINGE SC SCH (08:13)
[2018-12-05] MEDS ORDERED: Azithromycin 250 MG TAB PO SCH (09:00)
[2018-12-05] MEDS: Nicotine 14 MG PATCH TD SCH (09:00)
--- NOTE | 2018-12-05 13:40 | PDOC.PN ---
- Subjective Encounter Start Date: 12/05/18 Encounter Start Time: 13:39 Ms. Sanchez was seen today in follow-up of COPD exacerbation. She says she is breathing better, no new complaints. She has been witnessed walking through the halls without difficulty. - Objective Resuscitation Status - Order Detail: 12/03/18 10:20 Resuscitation Status Routine Resuscitation Status: FULL: Full Resuscitation MAR Reviewed: Yes Vital Signs & Weight: Vital Signs (12 hours) Temp Pulse Resp BP Pulse Ox 12/05/18 12:47 91 16 95 12/05/18 07:48 98.0 F 112 H 20 128/83 93 L 12/05/18 06:30 89 16 97 Weight Admit Weight 90 lb 12.8 oz Weight 90 lb 12.8 oz I&O: 12/04/18 12/05/18 12/06/18 06:59 06:59 06:59 Intake Total 820 1060 Balance 820 1060 Result Diagrams: 12/04/18 06:13 12/04/18 06:13 Phys Exam - Physical Examination HEENT: PERRLA Respiratory: no wheezing, no rales, no rhonchi Cardiovascular: RRR, no significant murmur, no rub Gastrointestinal: soft, non-tender, no distention, positive bowel sounds Musculoskeletal: no edema, pulses present Dx/Plan (1) Acute on chronic respiratory failure with hypoxemia Code(s): J96.21 - ACUTE AND CHRONIC RESPIRATORY FAILURE WITH HYPOXIA Status: Acute (2) COPD exacerbation Code(s): J44.1 - CHRONIC OBSTRUCTIVE PULMONARY DISEASE W (ACUTE) EXACERBATION Status: Acute Comment: Continue Duonebs, Solumedrol, Zithromax and Rocephin (3) Anxiety and depression Code(s): F41.9 - ANXIETY DISORDER, UNSPECIFIED; F32.9 - MAJOR DEPRESSIVE DISORDER, SINGLE EPISODE, UNSPECIFIED Status: Chronic (4) Tobacco abuse Code(s): Z72.0 - TOBACCO USE Status: Chronic Comment: Not ready to quit - Plan * Acute on chronic respiratory failure- improved * She is stable for discharge home..
--- NOTE | 2018-12-05 14:31 | PQF ---
Date: 12-05-18 ATTN: DR. MARISABEL ALMEIDA Please exercise your independent, professional judgment in responding to the clarification form. Clinical indicators are provided on the bottom of this form for your review Please check appropriate box(s): [ X] Protein Calorie Malnutrition: [ ] Mild [X ] Moderate [ ] Severe [ ] Cachexia [ ] Other diagnosis [ ] Unable to determine In addition, please specify: Present on Admission (POA): [ X] Yes [ ] No [ ] Unable to determine CLINICAL INDICATORS - SIGNS / SYMPTOMS / LABS PROCEDURE RN CONSULT 12-03-18: BMI: 14.2 PROCEDURE RN CONSULT 12-03-18: Per chart review, patient was 119.2# on 08/2017 which is a 24% weight loss in 16 months. Patient is skeletal, arms look like bones with skin laid over them. H&P 12-02-18: SHE IS CHRONICALLY ILL APPEARING, SHE IS A VERY THIN IN APPEARANCE RISK FACTORS: PROCEDURE RN CONSULT 12-03-18: PMH INCLUDES: COPD, chronic respiratory failure w. hypoxemia, Irlanda's granulomatosis, bipolar, anxiety, tobacco abuse, past polysubstance abuse TREATMENT: PROCEDURE RN CONSULT 12-03-18: 1. Continue Regular diet to promote intake 2. Recommend Ensure Enlive for meal trays <50% consumed 3. RD to order Mighty Shakes TID to provide additional energy/protein for weight gain Moderate Malnutrition (in acute illness) Energy Intake: <75% of estimated energy requirement for > 7 days Weight Loss: 1-2%/1 week; 5%/ 1 month; 7.5%/3 months Other: mild body fat loss; mild muscle mass loss; mild fluid accumulation; Severe Malnutrition (in acute illness) Energy Intake: < 50% of estimated energy requirement for > 5 days Weight Loss: >1-2%/1 week; >5%/1 month; >7.5%/3 months Other: moderate body fat loss; moderate muscle mass loss; moderate- severe fluid accumulation; measurably reduced social organization professor strength Moderate Malnutrition (in chronic illness) Energy Intake: <75% of estimated energy requirement for >1 month Weight Loss: 5%/1 month; 7.5%/3 months; 10%/6 months; 20%/1 year Other: mild body fat loss; mild muscle mass loss; mild fluid accumulation Severe Malnutrition (in chronic illness) Energy Intake: <75% of estimated energy requirement for >1 month Weight Loss: >5%/1 month; >7.5%/3 months; >10%/6 months; >20%/1 year Other: severe body fat loss; severe muscle mass loss; severe fluid accumulation ; measurably reduced social organization professor strength (This form is maintained as a part of the permanent medical record) 2014 [employer]. All Rights Reserved [email or web address] [email or web address] Office: [phone] F F THOMPSON HOSPITALElissa
--- NOTE | 2018-12-06 03:06 | DIS ---
DATE OF ADMISSION: 12/02/2018 DATE OF DISCHARGE: 12/05/2018 The patient's primary care is through the [facility]. DISCHARGE DIAGNOSES: 1. Acute on chronic respiratory failure with hypoxemia. 2. Chronic obstructive pulmonary disease exacerbation. 3. Depression and anxiety. 4. History of Irlanda granulomatosis. 5. Bipolar disorder. DISCHARGE MEDICATIONS: 1. Prednisone 10 mg daily for 3 days. 2. Dulera one puff twice a day. 3. Azithromycin 250 mg daily for 3 days. 4. Albuterol rescue inhaler. 5. Albuterol nebs q.6 as needed. 6. Trazodone 400 mg at bedtime. 7. Seroquel 200 mg at bedtime. CODE STATUS: Full code. ALLERGIES: SULFA. HOSPITAL COURSE: Ms. Sanchez is a pleasant 53-year-old female, who presented to the emergency room complaining of shortness of breath. She was found to have acute on chronic respiratory failure with hypoxemia. She was admitted, started on DuoNebs, antibiotics, and steroids. She improved over the course of the next couple of days and was subsequently able to be discharged home with close outpatient followup. She was also counseled on the need to stop smoking as well. Job ID: [id number]
== END 2018-12-05 16:49 | disposition home or self-care (01) | DRG 189 ==
LOC: ERS 21:02 → T4-A 21:45
PROVIDERS: ADMIT Hospitalist; ATTEND Hospitalist
DX: J96.21 Acute and chronic respiratory failure with hypoxia (principal); J44.1 Chronic obstructive pulmonary disease with (acute) exacerbation; E44.0 Moderate protein-calorie malnutrition; Z68.1 Body mass index [BMI] 19.9 or less, adult; M31.30 Wegener's granulomatosis without renal involvement; I10 Essential (primary) hypertension; E78.5 Hyperlipidemia, unspecified; F41.9 Anxiety disorder, unspecified; G89.29 Other chronic pain; M54.9 Dorsalgia, unspecified; F31.9 Bipolar disorder, unspecified; F17.210 Nicotine dependence, cigarettes, uncomplicated; Z98.1 Arthrodesis status; Z88.2 Allergy status to sulfonamides; Z71.6 Tobacco abuse counseling; Z87.09 Personal history of other diseases of the respiratory system
CPT/HCPCS: 36415; 80048; 85025; 94640; J0456; J0696; J1650; J2920; J3475; J7050; J7620

== ENCOUNTER 2019-07-15 22:37 | Inpatient (IN) | payer MEDICARE ==
[2019-07-15] MEDS ORDERED: Aspirin Chewable 81 MG TAB ONE (23:48)
[2019-07-15] MEDS ORDERED: Magnesium 2 GM/50 ML BAG (IN WATER) ONE (23:48)
--- NOTE | 2019-07-16 00:01 | RAD ---
EXAM: Portable chest PROVIDED CLINICAL HISTORY: Dyspnea COMPARISON: Exam earlier same day FINDINGS: Cardiac and mediastinal silhouette appears stable. No focal consolidation, pleural fluid or pneumotho rax evident. IMPRESSION: No evidence for an acute cardiopulmonary process.
[2019-07-16 00:17] LABS: Anion Gap 15 mmol/L (10-20); BUN (Urea Nitrogen) 27 mg/dL (9.8-20.1); Calc. Creatinine Clearance 0 mL/min (70-130); Calcium 8.4 mg/dL (7.8-10.44); Carbon Dioxide 28 mmol/L (22-29); Chloride 101 mmol/L (98-107); Estimated GFR-MDRD 81; Glucose 176 mg/dL (70-105); Potassium 4.4 mmol/L (3.5-5.1); Sodium 140 mmol/L (136-145)
[2019-07-16] MEDS ORDERED: cefTRIAXone\\ROCEPHIN 1 GM VIAL ONE (01:28)
[2019-07-16] MEDS ORDERED: Azithromycin 500 MG VIAL ONE (01:32)
--- NOTE | 2019-07-16 01:46 | PDOC.EVN ---
Event Note - Event Note Event Note: [id number] HP
[2019-07-16 03:50] VITALS: BMI 15.6
[2019-07-16] MEDS: Azithromycin 500 MG in Sodium Chloride 0.9% 250 ML 250 ML IVPB SCH (03:57)
[2019-07-16] MEDS: cefTRIAXone\\ROCEPHIN 1 GM in Sodium Chloride 0.9% 100 ML IVPB SCH (03:58)
[2019-07-16] MEDS: methylPREDNISolone Sod Succ 40 MG VIAL IVP SCH ×4 (03:58→19:48)
[2019-07-16 05:15] LABS: #Lymphocytes 0.4 thou/uL (1.20-3.40); #Monocytes 0.2 thou/uL (0.11-0.59); #Neutrophils 6.8 thou/uL (1.40-6.50); %Basophils 0.3 % (0.0-1.0); %Eosinophils 0.4 % (0.0-10.0); %Lymphocytes 5.8 % (21.0-51.0); %Neutrophils 90.5 % (42.0-75.0); Hemoglobin 14.1 g/dL (12.0-16.0); Mean Corpuscular HGB CONC 31.9 g/dL (32.0-36.0); Mean Corpuscular Hemoglobin 33.5 pg (27.0-31.0); Mean Platelet Volume 7.1 fL (7.4-10.4); Platelet Count 193 thou/uL (130-400); RBC Distribution Width 11.9 % (11.5-14.5); Red Blood Cell (RBC) Count 4.22 mill/uL (4.20-5.40); White Blood Cell (WBC) Count 7.5 thou/uL (4.8-10.8)
[2019-07-16 05:21] LABS: Anion Gap 13 mmol/L (10-20); BUN (Urea Nitrogen) 26 mg/dL (9.8-20.1); Calc. Creatinine Clearance 67 mL/min (70-130); Calcium 8.4 mg/dL (7.8-10.44); Carbon Dioxide 31 mmol/L (22-29); Chloride 103 mmol/L (98-107); Estimated GFR-MDRD 90; Glucose 105 mg/dL (70-105); Potassium 5.4 mmol/L (3.5-5.1); Sodium 142 mmol/L (136-145)
[2019-07-16 08:29] LABS: Hemoglobin A1c 5.2 % (4.0-6.0)
[2019-07-16 08:34] LABS: Cardiac Risk 2.7 (Less than 4.5)
[2019-07-16] MEDS: Famotidine 20 MG TAB PO SCH ×2 (08:44→19:49)
--- NOTE | 2019-07-16 11:00 | PDOC.HOSPP ---
- Subjective Encounter Date: 07/16/19 Encounter Time: 10:20 Subjective: sob is better, gets short winded even for small distances. - Objective Vital Signs & Weight: Vital Signs (12 hours) Temp Pulse Resp BP BP Pulse Ox 07/16/19 08:15 96.3 F L 108 H 30 H 141/86 H 95 07/16/19 07:54 94 L 07/16/19 07:51 113 H 20 94 L 07/16/19 07:00 96.3 F L 108 H 32 H 141/86 H 5 L 07/16/19 04:00 97.7 F 102 H 18 139/82 94 L 07/16/19 03:15 97.7 F 105 H 20 143/88 H 143/88 H 93 L Weight Admit Weight 99 lb Weight 99 lb 13.91 oz I&O: 07/15/19 07/16/19 07/17/19 06:59 06:59 06:59 Intake Total 480 Balance 480 Result Diagrams: 07/16/19 04:43 07/16/19 04:43 Hospitalist ROS - Medication Medications: Active Medications Generic Name Dose Route Start Last Admin Trade Name Freq PRN Reason Stop Dose Admin Albuterol/Ipratropium 3 ml 07/16/19 01:00 07/16/19 07:51 Duoneb NEB 3 ml [id number] LORIN Administration Famotidine 20 mg 07/16/19 09:00 07/16/19 08:44 Pepcid PO 20 mg BID LORIN Administration Azithromycin 500 mg/ Sodium 250 mls @ 250 mls/hr 07/16/19 01:00 07/16/19 03: 57 Chloride IVPB Not Given 0100 LORIN Ceftriaxone Sodium 1 gm/ 100 mls @ 200 mls/hr 07/16/19 02:00 07/16/19 03:58 Sodium Chloride IVPB Not Given 0200 LORIN Methylprednisolone Sodium Succinate 40 mg 07/16/19 02:00 07/16/19 08:44 Solu-Medrol IVP 40 mg 0200,0800,1400,2000 LORIN Administration - Exam General Appearance: awake alert General - other findings: cachectic Eye: PERRL, anicteric sclera ENT: no oropharyngeal lesions, dry oral mucosa Neck: symmetric, no JVD Heart: RRR, no murmur Respiratory: no rales, rhonchi, wheezes Gastrointestinal: soft, non-tender, non-distended, normal bowel sounds Extremities: no cyanosis, no edema Neurological: cranial nerve grossly intact, no focal deficits Psychiatric: A&O x 3 Hosp A/P (1) Acute respiratory failure with hypoxia Code(s): J96.01 - ACUTE RESPIRATORY FAILURE WITH HYPOXIA Status: Acute (2) COPD exacerbation Code(s): J44.1 - CHRONIC OBSTRUCTIVE PULMONARY DISEASE W (ACUTE) EXACERBATION Status: Acute (3) Anxiety and depression Code(s): F41.9 - ANXIETY DISORDER, UNSPECIFIED; F32.9 - MAJOR DEPRESSIVE DISORDER, SINGLE EPISODE, UNSPECIFIED Status: Chronic (4) Bipolar disorder Code(s): F31.9 - BIPOLAR DISORDER, UNSPECIFIED Status: Chronic (5) Cocaine abuse Code(s): F14.10 - COCAINE ABUSE, UNCOMPLICATED Status: Chronic (6) Tobacco abuse Code(s): Z72.0 - TOBACCO USE Status: Chronic (7) Irlanda's vasculitis Code(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.30 - IRLANDA'S GRANULOMATOSIS WITHOUT RENAL INVOLVEMENT Status: Chronic Qualifiers: Granulomatosis renal involvement: without renal involvement Qualified Code( s): M31.30 - Irlanda's granulomatosis without renal involvement (8) Moderate protein-calorie malnutrition Code(s): E44.0 - MODERATE PROTEIN-CALORIE MALNUTRITION Status: Chronic (9) Dyslipidemia Code(s): E78.5 - HYPERLIPIDEMIA, UNSPECIFIED Status: Chronic - Plan is on zithromax and ceftriaxone, nebs, steroids continue home meds seroquel and she also wants trazodone at bedtime h/o chronic cocaine use last used 8 days back has home oxygen but has only 2 sockets in her trailer and cant plug her concentrator on going tobacco use h/o wegeners vasculitis, last rituxan was 18 months back no hemoptysis now has lost nearly 80 lbs in 2 yrs change status to inpatient she has not seen in more than 1 yr (says her copay is $45 and cant afford)
[2019-07-16] MEDS: Nicotine 21 MG PATCH TD SCH (14:32)
[2019-07-16] MEDS: Mometasone/Formoterol 120 PUFF INHALER INH SCH (19:39)
[2019-07-16] MEDS: traZODone HCl 50 MG TAB PO SCH (19:49)
[2019-07-17] MEDS: Azithromycin 500 MG in Sodium Chloride 0.9% 250 ML 250 ML IVPB SCH (00:10)
[2019-07-17] MEDS: cefTRIAXone\\ROCEPHIN 1 GM in Sodium Chloride 0.9% 100 ML IVPB SCH (02:47)
[2019-07-17] MEDS: methylPREDNISolone Sod Succ 40 MG VIAL IVP SCH ×2 (02:47→08:08)
[2019-07-17] MEDS: Mometasone/Formoterol 120 PUFF INHALER INH SCH ×2 (06:50→19:11)
--- NOTE | 2019-07-17 07:46 | HP ---
CHIEF COMPLAINT: Shortness of breath. HISTORY OF PRESENT ILLNESS: Ms. Sanchez is a 54-year-old female with past medical history of COPD, substance abuse, cocaine abuse, Irlanda's vasculitis, rheumatoid arthritis, hyperlipidemia, chronic back pain, anxiety, among others. She is being transferred from [facility] after she presented to the emergency room with shortness of breath and low oxygen saturation in the 70s to the 80s. Patient was given breathing treatments, also IV steroids. Her oxygen saturation has been in the 90s en route to the [facility]. Currently, patient's oxygen saturation is 90% on room air. Patient continues to be short of breath especially with any minimal exertion. Continues to have bilateral wheezing. Patient is being admitted to the hospital for further management. Initial chest x-ray is unremarkable. PAST MEDICAL HISTORY: 1. COPD. 2. Irlanda's vasculitis. 3. Rheumatoid arthritis. 4. Hyperlipidemia. 5. Chronic back pain. 6. Substance abuse. 7. Anxiety. 8. Bipolar disorder. 9. Depression. PAST SURGICAL HISTORY: 1. Orthopedic surgery, right ankle. 2. Right knee surgery. 3. Neck fusion. SOCIAL HISTORY: Patient currently uses drugs, abuses cocaine. She also smokes cigarettes. She denies alcohol use. FAMILY HISTORY: Reviewed and noncontributory. HOME MEDICATIONS: Please see home medication reconciliation form for updated medications. ALLERGIES: ALLERGIC TO SULFA. REVIEW OF SYSTEMS: Review of 14 systems negative, except what is mentioned in the history of present illness. PHYSICAL EXAMINATION: GENERAL: Patient is awake, in respiratory distress. Very anxious and restless. VITAL SIGNS: Blood pressure 152/90, respiratory rate is 23, pulse is 115, temperature 98.1, and oxygen saturation is 94% on 2 L/minute nasal cannula. HEAD AND NECK: Normocephalic, atraumatic. Neck is supple. CHEST: Diffuse bilateral expiratory wheeze. HEART: S1, S2. Regular, tachycardic. ABDOMEN: Soft, nontender. Bowel sounds present. NEUROLOGIC: Awake, alert, and oriented. PSYCH: Very anxious and restless. EXTREMITIES: No clubbing. No cyanosis. LABORATORY DATA: WBC count is 9.4, hemoglobin is 14.7, and platelets 171. Sodium 142, potassium 4.5, BUN is 28, creatinine 0.8, AST 63, and ALT 70. Troponin 0.03. Repeat troponin 0.01. Chest x-ray, no acute finding. ASSESSMENT: 1. Acute hypoxic respiratory failure. Oxygen saturation was in the 70s on presentation secondary to chronic obstructive pulmonary disease exacerbation. 2. Acute on chronic obstructive pulmonary disease exacerbation. 3. Substance abuse, cocaine abuse. 4. Anxiety. 5. Hypertension. PLAN: 1. Admit. 2. Continue with bronchodilators scheduled and as needed. 3. Oxygen to keep saturation more than 92%. 4. IV antibiotics. 5. IV steroids. 6. Use benzodiazepine, Ativan, as needed for anxiety and restlessness. 7. Reconcile home medications. 8. DVT prophylaxis as appropriate. 9. Expected length of stay at least 1 midnight if patient is stable and show significant clinical improvement. Job ID: [id number]
[2019-07-17] MEDS: Famotidine 20 MG TAB PO SCH ×2 (08:07→20:15)
[2019-07-17] MEDS ORDERED: Acetaminophen 500 MG TAB PO PRN (10:21)
--- NOTE | 2019-07-17 12:38 | PDOC.HOSPP ---
- Subjective Encounter Date: 07/17/19 Encounter Time: 11:00 Subjective: says she is anxious, no chest pain sob is better nicotine patch is not helping her - Objective Vital Signs & Weight: Vital Signs (12 hours) Temp Pulse Resp BP Pulse Ox 07/17/19 08:00 96.9 F L 121 H 21 H 125/80 92 L Weight Admit Weight 99 lb 13.91 oz Weight 99 lb 13.91 oz I&O: 07/16/19 07/17/19 07/18/19 06:59 06:59 06:59 Intake Total 480 2750 Balance 480 2750 Result Diagrams: 07/16/19 04:43 07/16/19 04:43 Hospitalist ROS - Medication Medications: Active Medications Generic Name Dose Route Start Last Admin Trade Name Freq PRN Reason Stop Dose Admin Acetaminophen 1,000 mg 07/17/19 10:21 07/17/19 10:32 Tylenol PO 1,000 mg Q6H PRN Administration Headache/Fever or Pain Albuterol/Ipratropium 3 ml 07/16/19 01:00 07/17/19 06:50 Duoneb NEB 3 ml [id number] LORIN Administration Famotidine 20 mg 07/16/19 09:00 07/17/19 08:07 Pepcid PO 20 mg BID LORIN Administration Azithromycin 500 mg/ Sodium 250 mls @ 250 mls/hr 07/16/19 01:00 07/17/19 00: 10 Chloride IVPB 250 mls 0100 LORIN Administration Ceftriaxone Sodium 1 gm/ 100 mls @ 200 mls/hr 07/16/19 02:00 07/17/19 02:47 Sodium Chloride IVPB 100 mls 0200 LORIN Administration Mometasone Furoate/Formoterol Fumar 1 puff 07/16/19 18:30 07/17/19 06:50 Dulera 100 Mcg/5 Mcg Inhaler INH 1 puff BID-RT LORIN Administration Nicotine 21 mg 07/16/19 13:00 07/16/19 14:32 Nicoderm Patch TD 21 mg Q24HR LORIN Administration Quetiapine Fumarate 100 mg 07/16/19 21:00 07/16/19 19:48 Seroquel PO 100 mg HS LORIN Administration Trazodone HCl 200 mg 07/16/19 21:00 07/16/19 19:49 Desyrel PO 200 mg HS LORIN Administration - Exam General Appearance: awake alert Eye: PERRL, anicteric sclera ENT: no oropharyngeal lesions, moist mucosa Neck: supple, no JVD Heart: RRR, no murmur Respiratory: no wheezes, no rales Gastrointestinal: soft, non-tender, non-distended, normal bowel sounds Extremities: no cyanosis, no edema Neurological: cranial nerve grossly intact, no focal deficits Psychiatric: normal affect, A&O x 3 Hosp A/P (1) Acute respiratory failure with hypoxia Code(s): J96.01 - ACUTE RESPIRATORY FAILURE WITH HYPOXIA Status: Resolved (2) COPD exacerbation Code(s): J44.1 - CHRONIC OBSTRUCTIVE PULMONARY DISEASE W (ACUTE) EXACERBATION Status: Acute (3) Anxiety and depression Code(s): F41.9 - ANXIETY DISORDER, UNSPECIFIED; F32.9 - MAJOR DEPRESSIVE DISORDER, SINGLE EPISODE, UNSPECIFIED Status: Chronic (4) Bipolar disorder Code(s): F31.9 - BIPOLAR DISORDER, UNSPECIFIED Status: Chronic (5) Cocaine abuse Code(s): F14.10 - COCAINE ABUSE, UNCOMPLICATED Status: Chronic (6) Tobacco abuse Code(s): Z72.0 - TOBACCO USE Status: Chronic (7) Irlanda's vasculitis Code(s): M31.30 - IRLANDA'S GRANULOMATOSIS WITHOUT RENAL INVOLVEMENT Status: Chronic Qualifiers: Granulomatosis renal involvement: without renal involvement Qualified Code( s): M31.30 - Irlanda's granulomatosis without renal involvement (8) Moderate protein-calorie malnutrition Code(s): E44.0 - MODERATE PROTEIN-CALORIE MALNUTRITION Status: Chronic (9) Dyslipidemia Code(s): E78.5 - HYPERLIPIDEMIA, UNSPECIFIED Status: Chronic - Plan is on omnicef, nebs, steroids continue home meds seroquel and trazodone at bedtime h/o chronic cocaine use last used 8 days back has home oxygen but has only 2 sockets in her trailer and cant plug her concentrator on going tobacco use h/o wegeners vasculitis, last rituxan was 18 months back no hemoptysis now has lost nearly 80 lbs in 2 yrs p-anca levels are pending dc plan per pulm advice
--- NOTE | 2019-07-17 13:06 | CON ---
DATE OF CONSULTATION: 07/17/2019 SERVICE: Pulmonary Medicine. REASON FOR CONSULTATION: Fear of having Irlanda's recurrence. HISTORY OF PRESENT ILLNESS: The patient is a 54-year-old white female with past medical history significant for Irlanda's granulomatosis. She also has a heavy use of crack cocaine. She typically smokes this drug. She indicates that she went sober about 10 days ago. This was in response to a friend of hers that about [address], since then, she has been very severely agitated and tremulous. She is upset about multiple things right now. The most severe problem that she is having is that she was put on a heart healthy diet and she cannot get the food substances that she would like to eat. She looks physically irritated and upset. Otherwise, she started having some progressive shortness of breath over the past 2 weeks. About a week ago, she went to the emergency department, was put on some steroids, antibiotics, and nebulized medications. She got a slightly better for a period of time, but had recurrence in shortness of breath once again. As such, she came back to the Emergency Department and was subsequently admitted to the hospital for close observation. She denies any current fevers or chills. She is coughing, but not bringing up any phlegm. She certainly does not have any hemoptysis or night sweats. She has a voracious appetite, though she is quite skinny. PAST MEDICAL HISTORY: 1. Polysubstance drug abuse. 2. Irlanda's granulomatosis. 3. COPD. 4. Rheumatoid arthritis. 5. Dyslipidemia. 6. Bipolar disorder. 7. Anxiety disorder. 8. Chronic back pain. PAST SURGICAL HISTORY: 1. Right knee surgery. 2. Neck fusion. 3. Orthopedic surgery of the right ankle. SOCIAL HISTORY: She uses crack cocaine and smokes it. She quit using this substance about 10 days ago by her accord. She smokes about a pack of cigarettes on a daily basis and has greater than a [id number] history of smoking. Denies any significant alcohol use. FAMILY HISTORY: Noncontributory. ALLERGIES: SULFA. MEDICATIONS: List of her inpatient medications was reviewed. No specific updates were made at this time. REVIEW OF SYSTEMS: General; head, ears, eyes, nose, throat; cardiovascular; respiratory; GI; ; musculoskeletal; neurologic; and skin are negative except as mentioned in the HPI. PHYSICAL EXAMINATION: VITAL SIGNS: Afebrile. Pulse 121, blood pressure 125/80, respirations 21, and saturation 92% on 2 L nasal cannula. GENERAL: The patient is awake and alert, in no apparent distress. LUNGS: There is very reduced air entry with a prolonged expiratory phase. She is truthfully not moving enough air for me to hear adventitious sounds or crackles or wheezing. HEART: Tachycardic. Regular. ABDOMEN: Soft, nontender, and nondistended. Bowel sounds are positive. MUSCULOSKELETAL: No cyanosis or clubbing. There is no pitting in the bilateral lower extremities. NEUROLOGIC: Grossly nonfocal. LABORATORY DATA: WBC 7.5, hemoglobin 14.1, platelets 193,000. Neutrophil count 90.5. Potassium 5.4. Otherwise, basic metabolic profile is unremarkable. Calcium 8.4, hemoglobin A1c 5.2, and troponin 0.01. IMAGING: Chest x-ray demonstrates no acute cardiopulmonary abnormality. Lung volumes are hyperexpanded. Interstitial markings are accentuated by how thin she is. Minimal cephalization is noted, but is nothing pronounced. No pleural parenchymal disease is otherwise appreciated. I do not see any fluffy infiltrates characteristic of a flare of vasculitis. ASSESSMENT: 1. Acute hypoxic respiratory failure. 2. Chronic obstructive pulmonary disease with acute exacerbation. 3. Polysubstance drug abuse, including smoking crack cocaine. 4. History of Irlanda's granulomatosis, without obvious acute recurrence, currently on disease modifying therapy. DISCUSSION AND PLAN: I do not see anything on the chest x-ray characteristic of vasculitis. Furthermore, her symptoms are different than that. As such, I think we can just give her some steroids, nebulized medications, and antibiotics. Steroids will be deescalated. Truth be told, I do not see any need for both the azithromycin and the Rocephin as I do not see an infiltrate present. I will leave them for the time being while some cultures result. We will continue our nebulized medications. I will give her regular diet. I will pull ANCA studies. My assumption is that these titers are going to be low. Pulmonary/Critical Care will follow along. When she feels he breathing has improved to the point where she feels safe to get home, she can be discharged on 5 days of antibiotics and steroids. 70 minutes have been devoted to this patient in various activities. I personally reviewed all imaging studies and laboratory data noted within this document. For fifty percent of this time, I was interacting with the patient at the bedside or coordinating care with the care team. For the remainder of the time I was immediately available to the patient in the hospital unit. Job ID: [id number] MTDD
[2019-07-17] MEDS: Nicotine 21 MG PATCH TD SCH (14:47)
[2019-07-17] MEDS: ALPRAZolam 0.5 MG TAB PO PRN (14:50)
[2019-07-17] MEDS: Cefdinir 300 MG CAP PO SCH (20:16)
[2019-07-17] MEDS ORDERED: diphenhydrAMINE 25 MG CAP PO PRN (20:35)
[2019-07-17] MEDS: traZODone HCl 50 MG TAB PO SCH (20:51)
[2019-07-18] MEDS: Famotidine 20 MG TAB PO SCH ×2 (07:38→18:13)
[2019-07-18] MEDS: Cefdinir 300 MG CAP PO SCH ×2 (07:38→18:13)
[2019-07-18] MEDS: ALPRAZolam 0.5 MG TAB PO PRN (07:38)
[2019-07-18] MEDS: Mometasone/Formoterol 120 PUFF INHALER INH SCH (07:48)
[2019-07-18] MEDS ORDERED: predniSONE 20 MG TAB PO SCH (08:00)
[2019-07-18 12:19] VITALS: BP 130/82; TEMP 98.4
[2019-07-18] MEDS: Nicotine 21 MG PATCH TD SCH (16:49)
--- NOTE | 2019-07-18 17:48 | DIS ---
DATE OF ADMISSION: 07/16/2019 DATE OF DISCHARGE: 07/18/2019 DISCHARGE DISPOSITION: Home. PRIMARY DISCHARGE DIAGNOSES: Acute respiratory failure with hypoxia secondary to chronic obstructive pulmonary disease exacerbation, ongoing tobacco abuse, chronic cocaine abuse, bipolar disorder, anxiety disorder, history of Irlanda's vasculitis in the past, moderate protein malnutrition, and dyslipidemia. PROCEDURES DONE DURING HOSPITALIZATION: White count of 7, H and H 14 and 44, platelet count 193, MCV 105. BUN 26, creatinine 0.6. Total cholesterol 213, triglycerides 112, LDL 113. Troponin I x1, negative. Chest x-ray, no acute cardiopulmonary abnormalities. DISCHARGE MEDICATIONS: 1. Seroquel 100 mg p.o. at bedtime. 2. Trazodone 200 mg p.o. at bedtime. 3. Albuterol inhaler q.6 hourly p.r.n. 4. DuoNeb q.6 hourly p.r.n. 5. Dulera inhaler twice daily. 6. Prednisone 10 mg twice daily for 2 days, then daily for 2 days, and to discontinue. 7. Omnicef 300 mg p.o. twice daily for 4 days. ALLERGIES: SULFA. DISCHARGE PLAN: The patient to follow up with her primary care physician in 1 week. She also needs to follow up with Dr. Louie as advised. BRIEF COURSE DURING HOSPITALIZATION: The patient initially came to ER with complaints of shortness of breath and wheezing. She was essentially admitted for [id number] COPD exacerbation and acute respiratory failure with hypoxia. The patient had ongoing tobacco abuse and cocaine abuse as well. Even during hospitalization, the patient was going out for smoking. She was placed on steroids, nebulizations, and empiric antibiotics. She has had consultation with Dr. Louie as well for Pulmonology. She has remained hemodynamically stable. She is ambulating well. The patient has been counseled with regard to healthy eating and has had Dietary consultation during her stay here as well. She was counseled with regard to complete cessation of tobacco and cocaine. Please note, I have seen and examined the patient on the day of discharge. Job ID: [id number]
[2019-07-20 15:10] LABS: Cytoplasmic (C-ANCA) <1:20 titer (Neg:<1:20); Myeloperoxidase AutoAbs 16.7 U/mL (0.0-9.0); Perinuclear (P-ANCA) <1:20 titer (Neg:<1:20); Proteinase-3 AutoAbs Less than 3.5 U/mL (0.0-3.5)
== END 2019-07-18 18:49 | disposition home or self-care (01) | DRG 189 ==
LOC: ERS 22:37 → ONC 07-16 01:00 → OBSVTOIN 07-16 10:50
PROVIDERS: ADMIT Internal Medicine; ATTEND Internal Medicine
DX: J96.01 Acute respiratory failure with hypoxia (principal); J44.1 Chronic obstructive pulmonary disease with (acute) exacerbation; E44.0 Moderate protein-calorie malnutrition; M31.30 Wegener's granulomatosis without renal involvement; Z68.1 Body mass index [BMI] 19.9 or less, adult; F14.10 Cocaine abuse, uncomplicated; F31.9 Bipolar disorder, unspecified; M06.9 Rheumatoid arthritis, unspecified; G89.29 Other chronic pain; E78.5 Hyperlipidemia, unspecified; F41.9 Anxiety disorder, unspecified; E78.00 Pure hypercholesterolemia, unspecified; Z88.2 Allergy status to sulfonamides
CPT/HCPCS: 36415; 71045; 80048; 80061; 83036; 83520; 85025; 86256; 94640; 96365; 96367; 96368; J0456; J0696; J2920; J3475; J3490; J7050; J7512; J7620; Q0163

== ENCOUNTER 2020-04-04 22:40 | Inpatient (IN) | payer MEDICARE, OTHER ==
[2020-04-05] MEDS ORDERED: Labetalol HCl 100 MG/20 ML VIAL SLOW IVP PRN (00:08)
[2020-04-05] MEDS ORDERED: HYDROcodone/Acetaminophen 5/325 mg Tablet PO PRN (00:08)
[2020-04-05] MEDS ORDERED: Promethazine HCl 12.5 MG in Sodium Chloride 0.9% 50 ML IVPB PRN (00:08)
[2020-04-05] MEDS ORDERED: Guaifenesin DM 100-10/5 ML UDCUP PO PRN (00:08)
[2020-04-05] MEDS ORDERED: Morphine 2 MG/ML VIAL SLOW IVP PRN (00:08)
[2020-04-05] MEDS ORDERED: Ondansetron PF 4 MG/2 ML Vial IVP PRN (00:08)
[2020-04-05] MEDS ORDERED: cloNIDine 0.1 MG TAB PO PRN (00:08)
[2020-04-05] MEDS ORDERED: hydrALAZINE 20 MG/ML VIAL SLOW IVP PRN (00:08)
[2020-04-05] MEDS ORDERED: Bisacodyl 5 MG TAB PO PRN (00:10)
[2020-04-05] MEDS ORDERED: Bisacodyl 10 MG SUPP PR PRN (00:10)
[2020-04-05] MEDS ORDERED: Fioricet 325/50/40 mg Tablet PO PRN (00:12)
--- NOTE | 2020-04-05 00:12 | PDOC.HHP ---
Hospitalist HPI - History of Present Illness Shortness of breath, headache History of Present Illness: Patient is a 55 year old female with PMH chronic respiratory failure on home O2 , COPD/bronchitis, chronic back pain, HLD, asthma, wegeners vasculitis, depression, bipolar disorder who presents as transfer from [place] for shortness of breath, wheezing, headache. Her symptoms started 3 weeks ago, she reports using cocaine recently as well 1-2 days ago. She reports progressive SOB , cough, headache, shoulder pain, weakness. Denies fever, rash, chest pain, travelled to [place] this week where she may have been exposed. She reports wheezing as well and reports she was tested for covid and negative, she is on 3L by [place] which is higher than baseline of 2L. CT chest performed in [place] revealing signs of emphysema, CXR w/ COPD changes as well. EKG there concerning for new TWI in 2,3,aVF, v3-v6 which are new. No acute ST changes mentioned. Patient transferred here for further evaluation and care. Hospitalist ROS - Review of Systems Constitutional: reports: other (headaches). denies: fever, chills, sweats, weakness, malaise Eyes: denies: pain, vision change, conjunctivae inflammation, eyelid inflammation, redness, other ENT: denies: ear pain, ear discharge, nose pain, nose discharge, nose congestion , mouth pain, mouth swelling, throat pain, throat swelling, other Respiratory: reports: shortness of breath, SOB with excertion, wheezing. denies : cough, dry, hemoptysis, pleuritic pain, sputum, other Cardiovascular: denies: chest pain, palpitations, orthopnea, paroxysmal noc. dyspnea, edema, light headedness, other Gastrointestinal: denies: nausea, vomiting, abdominal pain, diarrhea, constipation, melena, hematochezia, other Genitourinary: denies: dysuria, frequency, incontinence, hematuria, retention, other Musculoskeletal: denies: neck pain, shoulder pain, arm pain, back pain, hand pain, leg pain, foot pain, other Skin: denies: rash, lesions, christina, bruising, other Neurological: denies: weakness, numbness, incoordination, change in speech, confusion, seizures, other All other systems reviewed; all pertinent +/- noted in HPI/Subj Hospitalist History - Past Medical History Other Medical History: chronic respiratory failure on home O2, COPD/bronchitis, chronic back pain, HLD , asthma, wegeners vasculitis, depression, bipolar disorder - Past Surgical History Other Surgical History: hand surgery, ankle surgery, knee surgery, neck fusion - Family History Family History: reports: no pertinent history - Social History Smoking Status: Former smoker (reports she quit recently was on 1/2 ppd) Alcohol: reports: None Drugs: reports: cocaine - Exam General Appearance: NAD, awake alert Eye: PERRL, anicteric sclera ENT: normocephalic atraumatic, no oropharyngeal lesions, moist mucosa Neck: supple, symmetric, no JVD, no thyromegaly, no lymphadenopathy, no carotid bruit Heart: RRR, no murmur, no gallops, no rubs, normal peripheral pulses Respiratory: CTAB, no rales, no ronchi, normal chest expansion, no tachypnea, normal percussion, wheezes Respiratory - other findings: prolonged expiratory phase Gastrointestinal: soft, non-tender, non-distended, normal bowel sounds, no palpable masses, no hepatomegaly, no splenomegaly, no bruit Extremities: no cyanosis, no clubbing, no edema Skin: normal turgor, no lesions, no rashes Neurological: cranial nerve grossly intact, normal sensation to touch, no weakness, no focal deficits, no new deficit Musculoskeletal: normal tone, normal strength, no muscle wasting Psychiatric: normal affect, normal behavior, A&O x 3 Hospitalist Results - Labs Lab results: outside records reviewed, see HPI for pertinent positives Hospitalist H&P A/P - Plan Plan: Patient is a 55 year old female with PMH chronic respiratory failure on home O2 , COPD/bronchitis, chronic back pain, HLD, asthma, wegeners vasculitis, depression, bipolar disorder who presents as transfer from [place] for shortness of breath, wheezing, headache. # acute and chronic respiratory failure w/ hypoxia # copd exacarbation - admit to floor - covid swab - steroids - consult pulmonary - used to see Dr Louie who is not here any more - abx empirically - resume nebs once covid negative. # EKG changes - nonacute TWI, will repeat and confirm no ST changes here, possbly related to cocaine use, trend troponin here # cocaine abuse - counselled on cessatoin # history of tobacco abuse - reports she has quit, [facility] [place] documents report active smoker, will monitor for withdrawal symptoms # HLD # chronic back pain # depression, bipolar disorder - resume home meds once made available Full code DVT/GI ppx
[2020-04-05 00:44] VITALS: BMI 19.5
[2020-04-05] MEDS: Acetaminophen 325 MG TAB PO PRN ×2 (01:08→18:06)
[2020-04-05] MEDS: Azithromycin 500 MG in Sodium Chloride 0.9% 250 ML 250 ML IVPB SCH (01:08)
[2020-04-05 01:23] LABS: Troponin I 0.019 ng/mL (< 0.028)
[2020-04-05] MEDS ORDERED: traZODone HCl 50 MG TAB PO SCH ×2 (02:00→21:00)
[2020-04-05 04:52] LABS: #Lymphocytes 0.4 thou/uL (1.20-3.40); #Monocytes 0.1 thou/uL (0.11-0.59); #Neutrophils 4.9 thou/uL (1.40-6.50); %Eosinophils 0.3 % (0.0-10.0); %Lymphocytes 8.1 % (21.0-51.0); %Monocytes 1.9 % (0.0-10.0); %Neutrophils 89.7 % (42.0-75.0); Hemoglobin 15.4 g/dL (12.0-16.0); Mean Corpuscular HGB CONC 31.2 g/dL (32.0-36.0); Mean Platelet Volume 7.7 fL (7.4-10.4); Platelet Count 191 thou/uL (130-400); RBC Distribution Width 11.6 % (11.5-14.5); Red Blood Cell (RBC) Count 4.67 mill/uL (4.20-5.40); White Blood Cell (WBC) Count 5.5 thou/uL (4.8-10.8)
[2020-04-05 05:10] LABS: Anion Gap 10 mmol/L (10-20); BUN (Urea Nitrogen) 25 mg/dL (9.8-20.1); Calc. Creatinine Clearance 60 mL/min (70-130); Calcium 9.1 mg/dL (7.8-10.44); Carbon Dioxide 36 mmol/L (22-29); Chloride 98 mmol/L (98-107); Estimated GFR-MDRD 78; Glucose 115 mg/dL (70-105); Potassium 5.2 mmol/L (3.5-5.1); Sodium 139 mmol/L (136-145)
[2020-04-05] MEDS: methylPREDNISolone Sod Succ 40 MG VIAL IVP SCH ×3 (06:12→21:54)
[2020-04-05] MEDS: Famotidine 20 MG TAB PO SCH (08:16)
[2020-04-05] MEDS: Enoxaparin Sodium 40 MG/0.4 ML SYRINGE SC SCH (08:16)
[2020-04-05] MEDS: Polyethylene Glycol 3350 17 GM Packet PO SCH (08:16)
[2020-04-05] MEDS ORDERED: Ipratropium Bromide 2.5 ml Neb NEB PRN (08:43)
[2020-04-05 08:44] LABS: Troponin I 0.015 ng/mL (< 0.028)
[2020-04-05] MEDS ORDERED: Nicotine 14 MG PATCH TOP PRN (13:03)
[2020-04-05 14:05] LABS: Troponin I 0.014 ng/mL (< 0.028)
[2020-04-05] MEDS ORDERED: cefTRIAXone\\ROCEPHIN 1 GM in Sodium Chloride 0.9% 100 ML IVPB SCH (15:00)
[2020-04-05] MEDS ORDERED: Nicotine 14 MG PATCH TD SCH (15:00)
--- NOTE | 2020-04-05 16:13 | PDOC.HOSPP ---
- Subjective Encounter Date: 04/05/20 Encounter Time: 15:00 Subjective: pt up in bed complaining of her food being cold. - Objective Vital Signs & Weight: Vital Signs (12 hours) Temp Pulse Resp BP Pulse Ox 04/05/20 11:50 97.8 F 81 18 111/69 96 04/05/20 08:09 98.0 F 89 14 138/74 96 Weight Weight 103 lb 4.8 oz I&O: 04/04/20 04/05/20 04/06/20 06:59 06:59 06:59 Intake Total 730 Output Total 650 Balance 80 Result Diagrams: 04/05/20 03:58 04/05/20 03:58 Hospitalist ROS - Review of Systems Respiratory: reports: shortness of breath Cardiovascular: denies: chest pain, palpitations, orthopnea, paroxysmal noc. dyspnea, edema, light headedness, other Gastrointestinal: denies: nausea, vomiting, abdominal pain, diarrhea, constipation, melena, hematochezia, other Genitourinary: denies: dysuria, frequency, incontinence, hematuria, retention, other - Medication Medications: Active Medications Generic Name Dose Route Start Last Admin Trade Name Freq PRN Reason Stop Dose Admin Acetaminophen 650 mg 04/05/20 00:08 04/05/20 01:08 Tylenol PO 650 mg Q4H PRN Administration Headache/Fever/Mild Pain (1-3) Albuterol/Ipratropium 3 ml 04/05/20 00:08 04/05/20 01:03 Duoneb NEB 3 ml [id number] PRN Administration SOB &/or Wheezing Enoxaparin Sodium 40 mg 04/05/20 09:00 04/05/20 08:16 Lovenox SC 40 mg 0900 LORIN Administration Famotidine 20 mg 04/05/20 09:00 04/05/20 08:16 Pepcid PO 20 mg DAILY LORIN Administration Azithromycin 500 mg/ Sodium 250 mls @ 250 mls/hr 04/05/20 01:00 04/05/20 01: 08 Chloride IVPB 250 mls 0100 LORIN Administration Methylprednisolone Sodium Succinate 60 mg 04/05/20 06:00 04/05/20 14:08 Solu-Medrol IVP 60 mg Q8HR LORIN Administration Nicotine 14 mg 04/05/20 15:00 04/05/20 14:53 Nicoderm Patch TD Not Given Q24HR [facility] Polyethylene Glycol 17 gm 04/05/20 09:00 04/05/20 08:16 Miralax PO Not Given DAILY LORIN - Exam Neck: negative: supple, symmetric, no JVD, no thyromegaly, no lymphadenopathy, no carotid bruit, JVD Heart: negative: RRR, no murmur, no gallops, no rubs, normal peripheral pulses, irregular, diminshed peripheral pulses, murmur present, II/IV, III/IV Respiratory: rhonchi Gastrointestinal: negative: soft, non-tender, non-distended, normal bowel sounds , no palpable masses, no hepatomegaly, no splenomegaly, no bruit, no guarding, no rigidity, tender to palpation, distended, diminished bowl sounds, voluntary guarding Hosp A/P (1) SOB (shortness of breath) Code(s): R06.02 - SHORTNESS OF BREATH Status: Acute (2) Acute chronic obstructive pulmonary disease with respiratory distress Code(s): J44.9 - CHRONIC OBSTRUCTIVE PULMONARY DISEASE, UNSPECIFIED Status: Acute (3) Bipolar disorder Code(s): F31.9 - BIPOLAR DISORDER, UNSPECIFIED Status: Chronic (4) Cocaine abuse Code(s): F14.10 - COCAINE ABUSE, UNCOMPLICATED Status: Chronic (5) Moderate protein-calorie malnutrition Code(s): E44.0 - MODERATE PROTEIN-CALORIE MALNUTRITION Status: Chronic (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 pt continues to smoke and do cocaine. pulmonary has been consulted. pt on dvt ppx. pt's has ekg changes will order a stress test.
[2020-04-05 17:11] LABS: SARS-CoV-2 MS2 Positive; SARS-CoV-2 N Gene Negative; SARS-CoV-2 S Gene Negative; SARS-CoV-2 by NAA Not Detected (NotDetected); SARS-CoV-2 orf1ab Negative
--- NOTE | 2020-04-05 22:58 | CON ---
DATE OF CONSULTATION: 04/05/2020 HISTORY OF PRESENT ILLNESS: Vanessa Sanchez is a 55-year-old female with COPD. She continues to smoke. She presented with shortness of breath. She also has a history of street drug use. She says she is feeling better. She walked to the coffee machine this morning. PAST MEDICAL HISTORY: 1. Remarkable for chronic respiratory failure, on oxygen. 2. History of COPD. 3. Hypertension. 4. History of reported Irlanda's in the past. 5. History of bipolar disorder. 6. History of multiple orthopedic procedures as well as cervical spine surgery. SOCIAL HISTORY: She is still smoking half pack a day or more. She does not drink. She uses cocaine. ALLERGIES: SHE HAS NO DRUG ALLERGIES. FAMILY HISTORY: Noncontributory. REVIEW OF SYSTEMS: Otherwise negative. PHYSICAL EXAMINATION: VITAL SIGNS: She is afebrile. Heart rate is 80, respiratory rate is 18, oximetry is 96% on nasal cannula 4 L, blood pressure is 111/69. HEENT: Pupils are equal. Sclerae are anicteric. NECK: Supple. No lymphadenopathy. LUNGS: Clear and distant. HEART: Regular rhythm. S1 and S2 are normal. ABDOMEN: Soft and nontender. EXTREMITIES: Without clubbing, cyanosis, or edema. LABORATORY DATA: White count 5.5, hemoglobin 15.4, mean corpuscular volume is 106, platelets 191. She has no manual differential. Sodium 139, potassium 5.2, chloride 98, bicarb 36, BUN 35, creatinine 0.7, glucose 115. IMAGING STUDIES: Chest x-ray shows no infiltrates. She had a CT done yesterday afternoon, [place] which shows an infiltrate in her middle lobe. IMPRESSION: 1. Chronic obstructive pulmonary disease exacerbation. 2. Probable pneumonia in her right middle lobe. 3. Cocaine use, which also could cause her infiltrate, although those infiltrates typically are diffuse. 4. She is only on azithromycin. She needs gram-negative coverage. 5. She reports an allergy to sulfa, so I will add Rocephin. We will follow the other physicians caring for her. TIME SPENT: This was a 50 minute consult, 50% of the was time spent on the unit coordinating care. Also added nicotine patch at her request. Job ID: [id number] [facility]
[2020-04-06] MEDS: Azithromycin 500 MG in Sodium Chloride 0.9% 250 ML 250 ML IVPB SCH (01:26)
[2020-04-06 04:47] LABS: #Lymphocytes 0.4 thou/uL (1.20-3.40); #Monocytes 0.2 thou/uL (0.11-0.59); #Neutrophils 11.1 thou/uL (1.40-6.50); %Eosinophils 0.2 % (0.0-10.0); %Lymphocytes 3.7 % (21.0-51.0); %Monocytes 1.6 % (0.0-10.0); %Neutrophils 94.6 % (42.0-75.0); Hemoglobin 15.7 g/dL (12.0-16.0); Mean Corpuscular HGB CONC 32.3 g/dL (32.0-36.0); Mean Corpuscular Hemoglobin 34.3 pg (27.0-31.0); Mean Platelet Volume 7.4 fL (7.4-10.4); Platelet Count 175 thou/uL (130-400); RBC Distribution Width 11.6 % (11.5-14.5); Red Blood Cell (RBC) Count 4.58 mill/uL (4.20-5.40); White Blood Cell (WBC) Count 11.8 thou/uL (4.8-10.8)
[2020-04-06 04:59] LABS: Anion Gap 10 mmol/L (10-20); BUN (Urea Nitrogen) 31 mg/dL (9.8-20.1); Calc. Creatinine Clearance 60 mL/min (70-130); Carbon Dioxide 32 mmol/L (22-29); Chloride 99 mmol/L (98-107); Estimated GFR-MDRD 78; Glucose 129 mg/dL (70-105); Potassium 5.1 mmol/L (3.5-5.1); Sodium 136 mmol/L (136-145)
[2020-04-06] MEDS: methylPREDNISolone Sod Succ 40 MG VIAL IVP SCH (05:09)
[2020-04-06] MEDS ORDERED: Regadenoson 0.4 MG/5 ML SYRINGE ONE (11:06)
[2020-04-06] MEDS: Enoxaparin Sodium 40 MG/0.4 ML SYRINGE SC SCH (11:52)
[2020-04-06] MEDS: Famotidine 20 MG TAB PO SCH (11:53)
[2020-04-06] MEDS: Polyethylene Glycol 3350 17 GM Packet PO SCH (11:53)
--- NOTE | 2020-04-06 12:20 | NM ---
NM Cardiac Stress W EF WF History: EKG changes with cardiac strain, COPD, asthma, hyperlipidemia and smoker Comparison: None. Findings: Stress and rest performed after the intravenous administration of 27 and 9 mCi technetium 9 9m sestamibi, respectively. Nonreversible scar of the septum from the base to the midportion left ventricle. [place] is intact. Calculated ejection fraction is 65% with septal dyskinesia. Impression: 1. Large septal scar without significant fiorella-infarct ischemia. 2. Calculated ejection fraction of 65% with septal dyskinesia.
--- NOTE | 2020-04-06 13:40 | PRG ---
DATE OF SERVICE: 04/06/2020 SUBJECTIVE: Vanessa Sanchez is in no distress. She says she is feeling better. OBJECTIVE: VITAL SIGNS: She is afebrile. Heart rate is 84, respiratory rate is 16, oximetry is 97% on 3 L, and blood pressure 130/72. LUNGS: Distant, clear. HEART: Regular rhythm. ABDOMEN: Soft. DIAGNOSTIC STUDIES: Nuclear stress test was done today showing normal ejection fraction with a septal scar. IMPRESSION: 1. Chronic obstructive pulmonary disease, ongoing tobacco. I have explained to her that she probably will live more than a year or two if she continues to smoke. Patch is working for she admits, but says she does not want to spend the money on the patch. Instead, she smokes cigars and spends her money on that. 2. Coronary artery disease with a septal scar on nuclear study. 3. Because of her ongoing tobacco use, her prognosis is poor. She probably does not need to continue with IV antibiotics. She will be switched to p.o. steroids and antibiotics. She can be considered for discharge in the morning hopefully. Job ID: [id number]
[2020-04-06 15:05] VITALS: BP 139/87; TEMP 98.2
[2020-04-06] MEDS ORDERED: Cefuroxime Axetil 250 MG TAB PO SCH (21:00)
--- NOTE | 2020-04-07 04:38 | DIS ---
DATE OF ADMISSION: 04/04/2020 DATE OF DISCHARGE: 04/06/2020 HISTORY OF PRESENT ILLNESS: Ms. Sanchez is a 55-year-old female with a medical history of polysubstance abuse including crack cocaine, COPD on 3 L nasal cannula at home, depression, and bipolar disorder who presented with shortness of breath and wheezing after using cocaine. She was diagnosed with COPD exacerbation and community-acquired pneumonia and was started on antibiotics and steroids. In addition to that, on presentation, she was found to have T-wave inversions and underwent cardiac stress test which turned out to be negative. Prior to education, she was educated regarding the possibility of having had demand ischemia due to cocaine-induced vasospasm. On the day of discharge, she was hemodynamically stable with no complaints. PHYSICAL EXAMINATION: VITAL SIGNS: Blood pressure 139/87, pulse 78, respiratory rate 12, oxygen saturation 96% on 3 L nasal cannula, temperature 98.2. GENERAL: Lying in bed, appears mildly agitated after having an argument with staff member. Appears emaciated. HEENT: Normocephalic, atraumatic. CARDIOVASCULAR: Regular rate and rhythm. No murmurs, gallops, or rubs. RESPIRATORY: Clear to auscultation bilaterally. No wheezing, rales or rhonchi. ABDOMEN: Soft, nontender, nondistended. Normal bowel sounds. PSYCHIATRIC: Mildly agitated, alert and oriented x3. MEDICATION LIST: New medications: 1. Prednisone 50 mg p.o. for 3 days. 2. Levothyroxine 750mg PO for 3 days. Continued medications: 1. Quetiapine. 2. Trazodone. 3. DuoNeb. 4. Albuterol sulfate if her nebulizer for the DuoNeb is malfunctioning. Modified medications: No modified medications. Discontinued medications: No discontinued medications. Job ID: [id number] [facility]
[2020-04-07] MEDS ORDERED: predniSONE 20 MG TAB PO SCH (08:00)
== END 2020-04-06 15:06 | disposition home or self-care (01) | DRG 193 ==
LOC: OBSVTOIN 22:40 → 2NO 22:40
PROVIDERS: ADMIT Internal Medicine; ATTEND Internal Medicine
DX: J18.9 Pneumonia, unspecified organism (principal); J96.21 Acute and chronic respiratory failure with hypoxia; J44.1 Chronic obstructive pulmonary disease with (acute) exacerbation; I24.8 Other forms of acute ischemic heart disease; E44.0 Moderate protein-calorie malnutrition; M31.30 Wegener's granulomatosis without renal involvement; J44.0 Chronic obstructive pulmonary disease with (acute) lower respiratory infection; Z68.1 Body mass index [BMI] 19.9 or less, adult; Z20.828 Contact with and (suspected) exposure to other viral communicable diseases; I25.10 Atherosclerotic heart disease of native coronary artery without angina pectoris; F19.10 Other psychoactive substance abuse, uncomplicated; F14.10 Cocaine abuse, uncomplicated; F31.9 Bipolar disorder, unspecified; G89.29 Other chronic pain; E78.5 Hyperlipidemia, unspecified; Z99.81 Dependence on supplemental oxygen; Z87.891 Personal history of nicotine dependence; Z88.2 Allergy status to sulfonamides
CPT/HCPCS: 36415; 78452; 80048; 83735; 84484; 85025; 87635; 93017; 94640; 94760; A9500; J0456; J0696; J1650; J2785; J2920; J3490; J7050; J7620; U0003

== ENCOUNTER 2020-05-10 08:44 | Outpatient (CLI) | payer MEDICARE ==
--- NOTE | 2020-05-10 09:06 | RAD ---
CHEST 2 VIEWS: Date: 05/10/2020 HISTORY: Dyspnea. COMPARISON: 04/04/2020. FINDINGS: Bilateral hyperinflation. Increased linear and interstitial markings in the mid and upper lung zones bilaterally. Evidence for overall stable chronic lung change. No confluent pneumonia, overt edema, or pleural effusion. IMPRESSION: Evidence for stable bilateral hyperinflation and chronic lung changes. POS: RRE
== END 2020-05-10 08:45 | disposition home or self-care (01) ==
LOC: BICRAD 08:44
PROVIDERS: ATTEND Internal Medicine Critical Care Medicine
DX: R06.00 Dyspnea, unspecified (principal); R91.8 Other nonspecific abnormal finding of lung field
CPT/HCPCS: 71046

== ENCOUNTER 2020-05-23 14:12 | Inpatient (IN) | payer MEDICARE, OTHER ==
[~2020-05-23 14:12] MED LIST: Ondansetron ODT 4 MG TAB SL PRN; Ondansetron PF 4 MG/2 ML Vial IVP PRN
[2020-05-23] MEDS ORDERED: Magnesium 2 GM/50 ML BAG (IN WATER) ONE (15:04)
[2020-05-23] MEDS ORDERED: Albuterol 200 PUFF (6.7GM INHALER) ONE (15:04)
[2020-05-23] MEDS ORDERED: Bisacodyl 5 MG TAB PO PRN ×2 (15:31→23:40)
[2020-05-23] MEDS ORDERED: Acetaminophen 325 MG TAB PO PRN (15:31)
[2020-05-23] MEDS ORDERED: Sodium Chloride 0.9% 1,000 ML IV SCH (15:45)
[2020-05-23] MEDS ORDERED: Nicotine 21 MG PATCH TD SCH (16:00)
[2020-05-23 16:10] LABS: SARS-CoV-2 NAA Rapid Test Not Detected (NotDetected)
--- NOTE | 2020-05-23 17:04 | HP ---
PRIMARY CARE PROVIDER: Ray Valdivia MD VASCULAR SPECIALISTS: Yung Govea MD CHIEF COMPLAINT: Shortness of breath. HISTORY OF PRESENT ILLNESS: Ms. Sanchez is a pleasant 55-year-old lady who was seen at [facility] on May 23, 2020, following transfer from the emergency room at [facility]. She has a history of chronic obstructive pulmonary disease. She is a current smoker. She reports that she saw her continuity clerk 2 weeks ago. She has been on prednisone since then. She reports that over the last couple of days she has had progressive worsening shortness of breath. She reports cough that is nonproductive. She denies fevers. She reports generalized weakness. She denies any nausea or vomiting. She denies any abdominal pain. She reports that no one else is sick at her home. She presented to the emergency room at [facility]. She was found to have right-sided lung infiltrates as well as leukocytosis and bandemia. She was started on ceftriaxone and azithromycin, and transferred to this facility for further management. She uses oxygen at home, 3 L/minute. At [facility], she reportedly had oxygen saturation of 81% on 3 L of oxygen. She reports feeling slightly better after going to the emergency room. REVIEW OF SYSTEMS: All systems were reviewed and found to be negative except for the pertinent positives mentioned above. PAST MEDICAL HISTORY: COPD, on 3 L/minute of home oxygen; chronic back pain; dyslipidemia; asthma; Irlanda vasculitis; rheumatoid arthritis. PAST SURGICAL HISTORY: Right hand surgery on the index finger, right ankle surgery, right knee surgery, neck fusion. PSYCHIATRIC HISTORY: Bipolar disorder, depression. SOCIAL HISTORY: The patient reports smoking half to one pack of cigarettes a day. She denies alcohol use. She reports current cocaine use. FAMILY HISTORY: Diabetes in her father and grandmother, and Irlanda granulomatosis in her niece. CODE STATUS: I discussed her code status. She is full code. ALLERGIES: SULFA. CURRENT MEDICATIONS: 1. Trazodone 400 mg at bedtime. 2. Seroquel 200 mg at bedtime. 3. Albuterol inhalation 2 times a day. 4. As mentioned earlier, she is also coming off steroids. PHYSICAL EXAMINATION: GENERAL: Ms. Sanchez is awake and alert, not in acute distress. She appears cachectic. VITAL SIGNS: Blood pressure is 133/109, pulse 102, respiratory rate 22, and oxygen saturation 94% on 4 L of oxygen. She is afebrile. EYES: No scleral icterus. No conjunctival pallor. EARS, NOSE, AND THROAT: Moist mucosal membranes. No oropharyngeal erythema or exudates. NECK: Supple, nontender. Trachea is midline. RESPIRATORY: Accessory muscles of breathing are active. Chest wall movements are symmetric bilaterally. Lung examination reveals expiratory wheeze. CARDIOVASCULAR: S1 and S2 are heard, tachycardic and regular. Peripheral pulses are palpable. ABDOMEN: Soft and nontender. Bowel sounds are heard. NEUROLOGIC: Cranial nerves 2 through 12 are intact. Deep tendon reflexes 2+. MUSCULOSKELETAL: The patient is moving all 4 extremities. SKIN: No rashes. LYMPHATIC: No cervical lymphadenopathy. PSYCHIATRIC: The patient appears anxious; oriented to person, place, and time. LABORATORY DATA: Ms. Sanchez's labs and investigations were reviewed. I reviewed her electrocardiogram, which shows normal sinus rhythm with pulmonary disease pattern. I also reviewed her chest x-ray, which shows right middle lobe and right lower lobe consolidation suggestive of pneumonia. She has white count of 20,100, of which 14% are band neutrophils and 78% are neutrophils. Hemoglobin is normal at 15. Platelet count is normal at 260,000. D-dimer is less than 0.27. She has an unremarkable comprehensive metabolic profile, mildly elevated BNP of 132.5, and normal troponin I. Urinalysis is negative for nitrite and leukocyte esterase. Urine drug screen is positive for tricyclics and cocaine metabolites. COVID-19 rapid test is pending. ASSESSMENT AND PLAN: Ms. Sanchez is a pleasant 55-year-old lady who was seen at [facility] on May 23, 2020. Her problem list includes: 1. Acute on chronic hypoxic respiratory failure: This appears to be secondary to a combination of chronic obstructive pulmonary disease exacerbation and pneumonia. She will be admitted to the hospital for further management. Pulmonology Service will be consulted for opinion and help with management. 2. Community-acquired pneumonia: The patient has been started on ceftriaxone and azithromycin. I will continue these antibiotics. We will send out blood cultures. Further management depending on clinical progress. 3. Sepsis: Secondary to community-acquired pneumonia. COVID-19 test is also being obtained. She will receive intravenous fluids. She was initially tachycardic, but now her heart rate is in the normal range. 4. Chronic obstructive pulmonary disease exacerbation: We will continue oxygen as needed, bronchodilators, intravenous steroids, and intravenous antibiotics. 5. Tobacco abuse: The patient has been counseled regarding tobacco cessation. We will start her on nicotine replacement therapy. 6. Cocaine abuse: The patient has been counseled regarding recreational drug cessation. LEVEL OF RISK: High. LEVEL OF COMPLEXITY: High. ESTIMATED LENGTH OF STAY: Greater than 2 midnights. Many thanks for allowing me to participate in your patient's care. Please feel free to contact me with any questions or concerns. Job ID: [id number]
[2020-05-23] MEDS ORDERED: methylPREDNISolone Sod Succ 40 MG VIAL IVP SCH (18:00)
[2020-05-23] MEDS: traZODone HCl 50 MG TAB PO SCH (20:46)
[2020-05-23 21:05] VITALS: BMI 17.4
[2020-05-23] MEDS ORDERED: cefTRIAXone\\ROCEPHIN 1 GM in Sodium Chloride 0.9% 100 ML IVPB SCH (23:45)
[2020-05-23] MEDS: methylPREDNISolone Sod Succ 40 MG VIAL IVP SCH (23:48)
[2020-05-23] MEDS: Sodium Chloride 0.9% 1,000 ML IV SCH (23:52)
[2020-05-24] MEDS: methylPREDNISolone Sod Succ 40 MG VIAL IVP SCH ×3 (05:13→17:23)
[2020-05-24 07:57] LABS: #Lymphocytes 0.3 thou/uL (1.20-3.40); #Monocytes 0.5 thou/uL (0.11-0.59); %Basophils 0.3 % (0.0-1.0); %Eosinophils 0.2 % (0.0-10.0); %Monocytes 3.2 % (0.0-10.0); %Neutrophils 94.3 % (42.0-75.0); Hemoglobin 14.3 g/dL (12.0-16.0); Mean Corpuscular HGB CONC 30.2 g/dL (32.0-36.0); Mean Corpuscular Hemoglobin 33.5 pg (27.0-31.0); Platelet Count 195 thou/uL (130-400); RBC Distribution Width 13.1 % (11.5-14.5); Red Blood Cell (RBC) Count 4.25 mill/uL (4.20-5.40)
[2020-05-24 08:15] LABS: Anion Gap 10 mmol/L (10-20); BUN (Urea Nitrogen) 17 mg/dL (9.8-20.1); Calc. Creatinine Clearance 68 mL/min (70-130); Calcium 8.8 mg/dL (7.8-10.44); Carbon Dioxide 32 mmol/L (22-29); Chloride 100 mmol/L (98-107); Estimated GFR-MDRD 82; Glucose 135 mg/dL (70-105); Potassium 4.8 mmol/L (3.5-5.1); Sodium 137 mmol/L (136-145)
[2020-05-24] MEDS: Sodium Chloride 0.9% 1,000 ML IV SCH (08:51)
[2020-05-24] MEDS: Enoxaparin Sodium 40 MG/0.4 ML SYRINGE SC SCH (08:52)
[2020-05-24] MEDS ORDERED: Enoxaparin Sodium 40 MG/0.4 ML SYRINGE SC SCH (09:00)
[2020-05-24] MEDS ORDERED: cefTRIAXone\\ROCEPHIN 1 GM in Sodium Chloride 0.9% 100 ML IVPB SCH (12:00)
[2020-05-24] MEDS: cefTRIAXone\\ROCEPHIN 1 GM in Sodium Chloride 0.9% 100 ML IVPB SCH (12:15)
--- NOTE | 2020-05-24 12:28 | CON ---
DATE OF CONSULTATION: HISTORY OF PRESENT ILLNESS: Vanessa Sanchez is a 55-year-old female, who was admitted to the hospital with COPD exacerbation and bronchitis. X-ray several days ago showed hyperinflation. X-ray taken yesterday showed a questionable right mid chest infiltrate. She is still smoking 3 to 4 cigarettes a day. She saw Dr. Govea in office about 2 weeks ago, was given a course of prednisone. She had no fever or chills. She was started on Rocephin and azithromycin. On most days, she can barely walk even 50 feet without getting markedly short of breath. PAST MEDICAL HISTORY: Pertinent for otherwise Irlanda's. She has seen a doctor out of [place] for this, and apparently on admission, is taking no medicine for that. PAST MEDICAL HISTORY: Pertinent for anxiety, bipolar disorder, Irlanda disease, COPD. PAST SURGICAL HISTORY: Including surgery on index finger, right ankle surgery. ALLERGIES: SULFA. HOME MEDICATIONS: Include; 1. Recent prednisone. 2. Seroquel 200. 3. Nebulizer, albuterol. 4. Trazodone 200. REVIEW OF SYSTEMS: Otherwise, ten-point negative. PHYSICAL EXAMINATION: VITAL SIGNS: Temperature 98, pulse 90, respirations 18, saturations CHEST: Diffuse wheezing. CARDIAC: Normal S1 and S2. No gallops. ABDOMEN: No masses. LABORATORY DATA: White count is 17,000, hemoglobin and hematocrit are 14 and 47, platelet count is normal. Lytes are normal. X-ray shows right mid chest infiltrate. ASSESSMENT: 1. Chronic obstructive pulmonary disease exacerbation, bronchitis, ongoing tobacco abuse pneumonia. 2. Bipolar disorder. 3. History of Irlanda's, no evidence of recurrence. In fact, she had a CT recently, which showed no masses, but evidence of significant bullous disease and emphysema. I agree with present treatment. PLAN: Steroids, neb treatment. I have added Dulera. I have added magnesium, Mucinex. Once again, she is told to refrain from smoking. Consultation note 70 minutes, 50% direct patient care. Job ID: [id number]
[2020-05-24] MEDS ORDERED: Magnesium 2 GM/50 ML 2 GM in Premix Bag 1 BAG IVPB SCH (12:30)
--- NOTE | 2020-05-24 12:56 | PDOC.HOSPP ---
- Subjective Encounter Date: 05/24/20 Encounter Time: 09:30 Subjective: Patient seen for follow-up regarding acute on chronic hypoxic respiratory failure. Patient reports feeling better. Still has cough, minimal sputum. Shortness of breath slightly better. - Objective Vital Signs & Weight: Vital Signs (12 hours) Temp Pulse Resp BP Pulse Ox 05/24/20 11:37 98.0 F 98 18 116/69 90 L 05/24/20 08:00 91 L 05/24/20 07:39 91 20 92 L 05/24/20 07:18 98.1 F 91 18 111/65 91 L 05/24/20 05:05 97.9 F 90 20 108/66 92 L Weight Weight 111 lb I&O: 05/23/20 05/24/20 05/25/20 06:59 06:59 06:59 Intake Total 1350 Balance 1350 Result Diagrams: 05/24/20 07:40 05/24/20 07:40 Additional Labs: I reviewed patient's labs and MAR Hospitalist ROS - Review of Systems Constitutional: reports: weakness. denies: fever, chills, sweats, malaise Respiratory: reports: cough, SOB with excertion, sputum. denies: dry, shortness of breath, hemoptysis, pleuritic pain, wheezing Cardiovascular: denies: chest pain, palpitations, orthopnea, paroxysmal noc. dyspnea, edema, light headedness Gastrointestinal: denies: nausea, vomiting, abdominal pain, diarrhea, constipation, melena, hematochezia Genitourinary: denies: dysuria, frequency, incontinence, hematuria, retention - Medication Medications: Active Medications Generic Name Dose Route Start Last Admin Trade Name Freq PRN Reason Stop Dose Admin Albuterol/Ipratropium 3 ml 05/24/20 01:00 05/24/20 07:39 Ipratropium/Albuterol Sulfate 3 Ml Neb NEB 3 ml [id number] LORIN Administration Enoxaparin Sodium 40 mg 05/24/20 09:00 05/24/20 08:52 Enoxaparin Sodium 40 Mg/0.4 Ml Syringe SC 40 mg 0900 LORIN Administration Ceftriaxone Sodium 1 gm/ 100 mls @ 200 mls/hr 05/24/20 12:00 05/24/20 12:15 Sodium Chloride IVPB 100 mls Q24HR LORIN Administration Sodium Chloride 1,000 mls @ 70 mls/hr 05/23/20 23:45 05/24/20 08:51 Normal Saline 0.9% IV 1,000 mls .[id number] LORIN Administration Methylprednisolone Sodium Succinate 40 mg 05/23/20 23:59 05/24/20 12:16 Methylprednisolone Sod Succ 40 Mg Vial IVP 40 mg Q6HR LORIN Administration Quetiapine Fumarate 200 mg 05/23/20 21:00 05/23/20 20:46 Quetiapine Fumarate 200 Mg Tab PO 200 mg HS LORIN Administration Trazodone HCl 200 mg 05/23/20 21:00 05/23/20 20:46 Trazodone Hcl 50 Mg Tab PO 200 mg HS LORIN Administration - Exam General Appearance: awake alert Eye: anicteric sclera ENT: normocephalic atraumatic Neck: supple, symmetric, no thyromegaly, no lymphadenopathy Heart: RRR Respiratory: no rales, no ronchi, normal chest expansion, wheezes Gastrointestinal: soft, non-tender, non-distended, normal bowel sounds Extremities: no cyanosis Skin: normal turgor Psychiatric: normal affect, normal behavior, A&O x 3 Hosp A/P (1) Acute on chronic respiratory failure with hypoxemia Code(s): J96.21 - ACUTE AND CHRONIC RESPIRATORY FAILURE WITH HYPOXIA Status: Acute (2) Pneumonia Code(s): J18.9 - PNEUMONIA, UNSPECIFIED ORGANISM Status: Acute (3) COPD exacerbation Code(s): J44.1 - CHRONIC OBSTRUCTIVE PULMONARY DISEASE W (ACUTE) EXACERBATION Status: Acute (4) Anxiety and depression Code(s): F41.9 - ANXIETY DISORDER, UNSPECIFIED; F32.9 - MAJOR DEPRESSIVE DISORDER, SINGLE EPISODE, UNSPECIFIED Status: Chronic (5) Bipolar disorder Code(s): F31.9 - BIPOLAR DISORDER, UNSPECIFIED Status: Chronic (6) Cocaine abuse Code(s): F14.10 - COCAINE ABUSE, UNCOMPLICATED Status: Chronic (7) Dyslipidemia Code(s): E78.5 - HYPERLIPIDEMIA, UNSPECIFIED Status: Chronic (8) Moderate protein-calorie malnutrition Code(s): E44.0 - MODERATE PROTEIN-CALORIE MALNUTRITION Status: Chronic (9) Tobacco abuse Code(s): Z72.0 - TOBACCO USE Status: Chronic - Plan Continue oxygen, intravenous steroids, bronchodilators, IV ceftriaxone and IV azithromycin. Patient is clinically improving. Ambulate patient. Patient counseled regarding tobacco cessation and cocaine cessation. Depression mild, stable Dietitian input appreciated regarding moderate protein calorie malnutrition.
[2020-05-24] MEDS ORDERED: Azithromycin 500 MG in Sodium Chloride 0.9% 250 ML 250 ML IVPB SCH (13:00)
[2020-05-24] MEDS: Azithromycin 500 MG in Sodium Chloride 0.9% 250 ML 250 ML IVPB SCH (13:40)
[2020-05-24] MEDS: Nicotine 21 MG PATCH TD SCH (17:21)
[2020-05-24] MEDS: Mometasone 200 MCG/Formoterol 5 MCG 120 PUFF INHALER INH SCH (19:30)
[2020-05-24] MEDS: traZODone HCl 50 MG TAB PO SCH (20:19)
[2020-05-24] MEDS: guaiFENesin ER 600 MG TAB PO SCH (20:20)
[2020-05-24] MEDS: Acetaminophen 325 MG TAB PO PRN (20:23)
[2020-05-25] MEDS: Sodium Chloride 0.9% 1,000 ML IV SCH ×2 (00:02→14:42)
[2020-05-25] MEDS: methylPREDNISolone Sod Succ 40 MG VIAL IVP SCH ×5 (00:02→23:47)
[2020-05-25] MEDS: Mometasone 200 MCG/Formoterol 5 MCG 120 PUFF INHALER INH SCH ×2 (06:38→19:57)
[2020-05-25 07:37] LABS: Anion Gap 14 mmol/L (10-20); BUN (Urea Nitrogen) 29 mg/dL (9.8-20.1); Calc. Creatinine Clearance 61 mL/min (70-130); Carbon Dioxide 25 mmol/L (22-29); Chloride 102 mmol/L (98-107); Estimated GFR-MDRD 72; Glucose 211 mg/dL (70-105); Potassium 4.9 mmol/L (3.5-5.1); Sodium 136 mmol/L (136-145)
[2020-05-25] MEDS: guaiFENesin ER 600 MG TAB PO SCH ×2 (08:07→20:44)
[2020-05-25] MEDS: Enoxaparin Sodium 40 MG/0.4 ML SYRINGE SC SCH (08:08)
[2020-05-25 10:36] LABS: #Lymphocytes 0.9 thou/uL (1.20-3.40); #Monocytes 0.3 thou/uL (0.11-0.59); #Neutrophils 15.2 thou/uL (1.40-6.50); %Basophils 0.2 % (0.0-1.0); %Eosinophils 0.2 % (0.0-10.0); %Lymphocytes 5.3 % (21.0-51.0); %Monocytes 1.5 % (0.0-10.0); %Neutrophils 92.8 % (42.0-75.0); Hemoglobin 14.7 g/dL (12.0-16.0); MDiff Complete? YES; Macrocytosis MODERATE=16-30 cells (100X) (0-5/hpf); Mean Corpuscular HGB CONC 29.8 g/dL (32.0-36.0); Mean Corpuscular Hemoglobin 33.1 pg (27.0-31.0); Mean Platelet Volume 7.6 fL (7.4-10.4); Platelet Count 223 thou/uL (130-400); Platelet Morphology Comment Appears Adequate; RBC Distribution Width 13.3 % (11.5-14.5); Red Blood Cell (RBC) Count 4.44 mill/uL (4.20-5.40); Toxic Granulation SLIGHT; White Blood Cell (WBC) Count 16.4 thou/uL (4.8-10.8)
--- NOTE | 2020-05-25 11:56 | PDOC.HOSPP ---
- Subjective Encounter Date: 05/25/20 Encounter Time: : Subjective: Patient seen in follow-up for respiratory failure. Reports feeling better. Reports having some pain over the left side of her chest earlier, nonexertional. - Objective Vital Signs & Weight: Vital Signs (12 hours) Temp Pulse Resp BP Pulse Ox 05/25/20 07:06 97.8 F 107 H 18 113/65 93 L 05/25/20 06:35 97 16 94 L Weight Admit Weight 111 lb Weight 111 lb I&O: 05/24/20 05/25/20 05/26/20 06:59 06:59 06:59 Intake Total 1350 Balance 1350 Result Diagrams: 05/25/20 07:01 05/25/20 07:01 Additional Labs: I reviewed patient's labs and MAR Hospitalist ROS - Review of Systems Respiratory: reports: cough, dry, SOB with excertion. denies: shortness of breath, hemoptysis, pleuritic pain, sputum, wheezing Cardiovascular: reports: chest pain. denies: palpitations, orthopnea, paroxysmal noc. dyspnea, edema, light headedness - Medication Medications: Active Medications Generic Name Dose Route Start Last Admin Trade Name Freq PRN Reason Stop Dose Admin Acetaminophen 650 mg 05/23/20 23:39 05/24/20 20:23 Acetaminophen 325 Mg Tab PO 650 mg Q4H PRN Administration Headache/Fever/Mild Pain (1-3) Albuterol/Ipratropium 3 ml 05/24/20 01:00 05/25/20 06:35 Ipratropium/Albuterol Sulfate 3 Ml Neb NEB 3 ml [id number] LORIN Administration Enoxaparin Sodium 40 mg 05/24/20 09:00 05/25/20 08:08 Enoxaparin Sodium 40 Mg/0.4 Ml Syringe SC 40 mg 0900 LORIN Administration Guaifenesin 600 mg 05/24/20 21:00 05/25/20 08:07 Guaifenesin Er 600 Mg Tab PO 600 mg Q12HR LORIN Administration Azithromycin 500 mg/ Sodium 250 mls @ 250 mls/hr 05/24/20 13:00 05/24/20 13:4 0 Chloride IVPB 250 mls 1300 LORIN Administration Ceftriaxone Sodium 1 gm/ 100 mls @ 200 mls/hr 05/24/20 12:00 05/24/20 12:15 Sodium Chloride IVPB 100 mls Q24HR LORIN Administration Sodium Chloride 1,000 mls @ 70 mls/hr 05/23/20 23:45 05/25/20 00:02 Normal Saline 0.9% IV 1,000 mls .[id number] LORIN Administration Methylprednisolone Sodium Succinate 40 mg 05/23/20 23:59 05/25/20 06:02 Methylprednisolone Sod Succ 40 Mg Vial IVP 40 mg Q6HR LORIN Administration Mometasone Furoate/Formoterol Fumar 2 puff 05/24/20 18:30 05/25/20 06:38 Mometasone 200 Mcg/Formoterol 5 Mcg 120 Puff Inhaler INH 2 puff BID-RT LORIN Administration Nicotine 21 mg 05/24/20 16:00 05/24/20 17:21 Nicotine 21 Mg Patch TD 21 mg Q24HR LORIN Administration Quetiapine Fumarate 200 mg 05/23/20 21:00 05/24/20 20:20 Quetiapine Fumarate 200 Mg Tab PO 200 mg HS LORIN Administration Trazodone HCl 200 mg 05/23/20 21:00 05/24/20 20:19 Trazodone Hcl 50 Mg Tab PO 200 mg HS LORIN Administration - Exam General Appearance: awake alert Eye: anicteric sclera ENT: moist mucosa Neck: supple Heart: RRR Respiratory: wheezes Gastrointestinal: soft, non-tender Extremities: no cyanosis Skin: no rashes Musculoskeletal - other findings: Mild reproducible left chest wall tenderness Psychiatric: normal affect, normal behavior Hosp A/P (1) Acute on chronic respiratory failure with hypoxemia Code(s): J96.21 - ACUTE AND CHRONIC RESPIRATORY FAILURE WITH HYPOXIA Status: Acute (2) Pneumonia Code(s): J18.9 - PNEUMONIA, UNSPECIFIED ORGANISM Status: Acute (3) COPD exacerbation Code(s): J44.1 - CHRONIC OBSTRUCTIVE PULMONARY DISEASE W (ACUTE) EXACERBATION Status: Acute (4) Anxiety and depression Code(s): F41.9 - ANXIETY DISORDER, UNSPECIFIED; F32.9 - MAJOR DEPRESSIVE DISORDER, SINGLE EPISODE, UNSPECIFIED Status: Chronic (5) Bipolar disorder Code(s): F31.9 - BIPOLAR DISORDER, UNSPECIFIED Status: Chronic (6) Cocaine abuse Code(s): F14.10 - COCAINE ABUSE, UNCOMPLICATED Status: Chronic (7) Dyslipidemia Code(s): E78.5 - HYPERLIPIDEMIA, UNSPECIFIED Status: Chronic (8) Moderate protein-calorie malnutrition Code(s): E44.0 - MODERATE PROTEIN-CALORIE MALNUTRITION Status: Chronic (9) Tobacco abuse Code(s): Z72.0 - TOBACCO USE Status: Chronic - Plan Patient is improving with oxygen, intravenous steroids, bronchodilators, IV ceftriaxone and IV azithromycin. Ambulate patient. Patient counseled regarding tobacco cessation and cocaine cessation. Depression mild, stable Check chest x-ray, troponin and twelve-lead EKG.
[2020-05-25] MEDS: cefTRIAXone\\ROCEPHIN 1 GM in Sodium Chloride 0.9% 100 ML IVPB SCH (12:26)
[2020-05-25 13:42] LABS: Troponin I 0.018 ng/mL (< 0.028)
--- NOTE | 2020-05-25 14:24 | RAD ---
EXAM: Two views chest PROVIDED CLINICAL HISTORY: Chest pain COMPARISON: 05/23/2020 FINDINGS: Cardiac silhouette and pulmonary vasculature are within normal limits. There is patchy parenchymal a irspace opacities again seen in the right middle lobe and right lower lobe. Interstitial opacities have improved at the right lung base. Linear density is seen in the region of the lingula unchanged f rom prior study and could be related to an area of mild scarring. The osseous structures have a normal appearance. IMPRESSION: Airspace opacities in the right middle lobe and lingula worrisome for pneumonia. Follow-up to complet e resolution is recommended..
[2020-05-25] MEDS: Azithromycin 500 MG in Sodium Chloride 0.9% 250 ML 250 ML IVPB SCH (14:34)
[2020-05-25] MEDS: Nicotine 21 MG PATCH TD SCH (17:25)
[2020-05-25 18:44] LABS: Troponin I Less than 0.010 ng/mL (< 0.028)
--- NOTE | 2020-05-25 19:09 | PRG ---
DATE OF SERVICE: 05/25/2020 SUBJECTIVE: Ms. Sanchez still has significant breathlessness. She is not having any cough or sputum. She has not had any fevers or chills. Activity in the room has been limited. OBJECTIVE: VITAL SIGNS: Blood pressure 148/78, heart rate 117. She is afebrile. Her pulse ox 94% on 3 L oxygen. GENERAL: She is awake and alert. She is using accessory muscles. She appears older than her stated age. HEENT: Shows no adenopathy or JVD. LUNGS: Hyperinflated with decreased breath sounds, but no wheezing. HEART: Regular rate and rhythm. She is resting tachycardia. ABDOMEN: Soft. There is no organomegaly. IMPRESSION: 1. Chronic obstructive pulmonary disease exacerbation. 2. Tobacco abuse, active until the time of admission. This is compounded by self report of occasionally still smoking crack. PLAN: We will continue with current therapies including antibiotics, oxygen, steroids, and nebulized bronchodilators. The critical importance of smoking cessation is emphasized as she is participating in a regular exercise regimen. There is no specific therapy to add today. Job ID: [id number]
[2020-05-25] MEDS: traZODone HCl 50 MG TAB PO SCH (20:43)
[2020-05-26] MEDS: Sodium Chloride 0.9% 1,000 ML IV SCH ×2 (04:10→12:21)
[2020-05-26] MEDS: methylPREDNISolone Sod Succ 40 MG VIAL IVP SCH ×4 (05:40→23:09)
[2020-05-26 06:10] LABS: #Lymphocytes 0.5 thou/uL (1.20-3.40); #Monocytes 0.4 thou/uL (0.11-0.59); #Neutrophils 11.4 thou/uL (1.40-6.50); %Basophils 0.1 % (0.0-1.0); %Eosinophils 0.1 % (0.0-10.0); %Lymphocytes 3.7 % (21.0-51.0); %Monocytes 2.8 % (0.0-10.0); %Neutrophils 93.2 % (42.0-75.0); Hemoglobin 13.7 g/dL (12.0-16.0); Mean Corpuscular HGB CONC 30.6 g/dL (32.0-36.0); Mean Corpuscular Hemoglobin 33.3 pg (27.0-31.0); Mean Platelet Volume 7.4 fL (7.4-10.4); Platelet Count 218 thou/uL (130-400); RBC Distribution Width 13.2 % (11.5-14.5); Red Blood Cell (RBC) Count 4.11 mill/uL (4.20-5.40); White Blood Cell (WBC) Count 12.2 thou/uL (4.8-10.8)
[2020-05-26] MEDS: Mometasone 200 MCG/Formoterol 5 MCG 120 PUFF INHALER INH SCH ×2 (06:14→18:40)
[2020-05-26 06:31] LABS: Anion Gap 13 mmol/L (10-20); BUN (Urea Nitrogen) 30 mg/dL (9.8-20.1); Calc. Creatinine Clearance 66 mL/min (70-130); Calcium 8.5 mg/dL (7.8-10.44); Carbon Dioxide 28 mmol/L (22-29); Chloride 102 mmol/L (98-107); Estimated GFR-MDRD 79; Glucose 141 mg/dL (70-105); Potassium 4.9 mmol/L (3.5-5.1); Sodium 138 mmol/L (136-145)
[2020-05-26] MEDS: guaiFENesin ER 600 MG TAB PO SCH ×2 (08:28→19:56)
[2020-05-26] MEDS: Enoxaparin Sodium 40 MG/0.4 ML SYRINGE SC SCH (08:28)
[2020-05-26] MEDS ORDERED: Cyclobenzaprine 10 MG TAB PO SCH (08:45)
--- NOTE | 2020-05-26 11:02 | PDOC.HOSPP ---
- Subjective Encounter Date: 05/26/20 Encounter Time: 07:30 Subjective: Patient seen in follow-up for acute on chronic hypoxic respiratory failure. Feels better today. Reports lower back pain, in the paraspinal region bilaterally. Reports muscle spasms. - Objective Vital Signs & Weight: Vital Signs (12 hours) Temp Pulse Resp BP Pulse Ox 05/26/20 07:50 97.7 F 116 H 20 171/89 H 92 L 05/26/20 06:12 91 16 95 05/26/20 03:49 94 L 05/25/20 23:32 95 Weight Admit Weight 111 lb Weight 111 lb Result Diagrams: 05/26/20 05:46 05/26/20 05:46 Additional Labs: I reviewed patient's labs and MAR Hospitalist ROS - Review of Systems Respiratory: reports: SOB with excertion Cardiovascular: denies: chest pain, palpitations, orthopnea, paroxysmal noc. dyspnea, edema, light headedness Gastrointestinal: denies: nausea, vomiting, abdominal pain, diarrhea, constipation, melena, hematochezia Musculoskeletal: reports: back pain. denies: neck pain, shoulder pain, arm pain, hand pain, leg pain, foot pain - Medication Medications: Active Medications Generic Name Dose Route Start Last Admin Trade Name Freq PRN Reason Stop Dose Admin Acetaminophen 650 mg 05/23/20 23:39 05/24/20 20:23 Acetaminophen 325 Mg Tab PO 650 mg Q4H PRN Administration Headache/Fever/Mild Pain (1-3) Albuterol/Ipratropium 3 ml 05/24/20 01:00 05/26/20 06:12 Ipratropium/Albuterol Sulfate 3 Ml Neb NEB 3 ml [id number] LORIN Administration Bisacodyl 10 mg 05/23/20 23:40 05/26/20 08:29 Bisacodyl 5 Mg Tab PO 10 mg DAILYPRN PRN Administration Constipation Enoxaparin Sodium 40 mg 05/24/20 09:00 05/26/20 08:28 Enoxaparin Sodium 40 Mg/0.4 Ml Syringe SC 40 mg 0900 LORIN Administration Guaifenesin 600 mg 05/24/20 21:00 05/26/20 08:28 Guaifenesin Er 600 Mg Tab PO 600 mg Q12HR LORIN Administration Azithromycin 500 mg/ Sodium 250 mls @ 250 mls/hr 05/24/20 13:00 05/25/20 14:34 Chloride IVPB 250 mls 1300 LORIN Administration Ceftriaxone Sodium 1 gm/ 100 mls @ 200 mls/hr 05/24/20 12:00 05/25/20 12:26 Sodium Chloride IVPB 100 mls Q24HR LORIN Administration Sodium Chloride 1,000 mls @ 70 mls/hr 05/23/20 23:45 05/26/20 04:10 Normal Saline 0.9% IV 1,000 mls .[id number] LORIN Administration Methylprednisolone Sodium Succinate 40 mg 05/23/20 23:59 05/26/20 05:40 Methylprednisolone Sod Succ 40 Mg Vial IVP 40 mg Q6HR LORIN Administration Mometasone Furoate/Formoterol Fumar 2 puff 05/24/20 18:30 05/26/20 06:14 Mometasone 200 Mcg/Formoterol 5 Mcg 120 Puff Inhaler INH 2 puff BID-RT LORIN Administration Nicotine 21 mg 05/24/20 16:00 05/25/20 17:25 Nicotine 21 Mg Patch TD 21 mg Q24HR LORIN Administration Quetiapine Fumarate 200 mg 05/23/20 21:00 05/25/20 20:44 Quetiapine Fumarate 200 Mg Tab PO 200 mg HS LORIN Administration Sodium Chloride 10 ml 05/26/20 09:00 05/26/20 08:50 Flush - Normal Saline 10 Ml Syringe IVF 10 ml Q12HR LORIN Administration Sodium Chloride 10 ml 05/26/20 08:45 05/26/20 08:50 Flush - Normal Saline 10 Ml Syringe IVF 10 ml PRN PRN Administration Saline Flush Trazodone HCl 200 mg 05/23/20 21:00 05/25/20 20:43 Trazodone Hcl 50 Mg Tab PO 200 mg HS LORIN Administration - Exam General Appearance: awake alert Eye: anicteric sclera ENT: normocephalic atraumatic Neck: supple Heart: RRR Respiratory: wheezes Gastrointestinal: soft, non-tender Extremities: no cyanosis Skin: no rashes Neurological: no weakness Musculoskeletal - other findings: Tenderness over lumbar paraspinal muscles Psychiatric: normal affect, normal behavior Hosp A/P (1) Acute on chronic respiratory failure with hypoxemia Code(s): J96.21 - ACUTE AND CHRONIC RESPIRATORY FAILURE WITH HYPOXIA Status: Acute (2) Pneumonia Code(s): J18.9 - PNEUMONIA, UNSPECIFIED ORGANISM Status: Acute (3) COPD exacerbation Code(s): J44.1 - CHRONIC OBSTRUCTIVE PULMONARY DISEASE W (ACUTE) EXACERBATION Status: Acute (4) Anxiety and depression Code(s): F41.9 - ANXIETY DISORDER, UNSPECIFIED; F32.9 - MAJOR DEPRESSIVE DISORDE R, SINGLE EPISODE, UNSPECIFIED Status: Chronic (5) Bipolar disorder Code(s): F31.9 - BIPOLAR DISORDER, UNSPECIFIED Status: Chronic (6) Cocaine abuse Code(s): F14.10 - COCAINE ABUSE, UNCOMPLICATED Status: Chronic (7) Dyslipidemia Code(s): E78.5 - HYPERLIPIDEMIA, UNSPECIFIED Status: Chronic (8) Moderate protein-calorie malnutrition Code(s): E44.0 - MODERATE PROTEIN-CALORIE MALNUTRITION Status: Chronic (9) Tobacco abuse Code(s): Z72.0 - TOBACCO USE Status: Chronic - Plan Continue oxygen, intravenous steroids, bronchodilators, IV ceftriaxone and IV azithromycin. Ambulate patient. Patient counseled regarding tobacco cessation and cocaine cessation. Depression mild, stable Chest pain has resolved. Trial Flexeril for muscle spasms.
[2020-05-26] MEDS: cefTRIAXone\\ROCEPHIN 1 GM in Sodium Chloride 0.9% 100 ML IVPB SCH (11:44)
[2020-05-26] MEDS: Acetaminophen 325 MG TAB PO PRN (12:21)
[2020-05-26] MEDS: Azithromycin 500 MG in Sodium Chloride 0.9% 250 ML 250 ML IVPB SCH (12:58)
--- NOTE | 2020-05-26 17:01 | PRG ---
DATE OF SERVICE: 05/26/2020 SUBJECTIVE: Ms. Sanchez thinks that she is a little bit better. She slept as well last night as she has any time in the past few nights. She is not coughing or bringing up any sputum. She has moved about a little in the room, although not very far. PHYSICAL EXAMINATION: VITAL SIGNS: Blood pressure 166/91, heart rate 103. She is afebrile. Pulse ox 95 on 3 L oxygen. GENERAL: She is mildly dyspneic, but able to lie supine. NECK: She has no JVD. LUNGS: Hyperinflated with global decrease in breath sounds, but no wheezing or rales. HEART: Regular rate and rhythm. S1, S2 are distant. ABDOMEN: Soft. EXTREMITIES: She has no edema. LABORATORY DATA: White count 12,200, hemoglobin is 11.7, and platelet count 218. Chemistry panel is normal. IMPRESSION: Severe chronic obstructive pulmonary disease with exacerbation. PLAN: She is gradually improving. I have encouraged her to be ambulatory as much as possible. We have again talked about the critical need for smoking cessation. I think that she will probably be to the point of discharge in the next 24 hours. Job ID: [id number]
[2020-05-26] MEDS: Nicotine 21 MG PATCH TD SCH (17:23)
[2020-05-26] MEDS: Cyclobenzaprine 10 MG TAB PO PRN (17:23)
[2020-05-26] MEDS: traZODone HCl 50 MG TAB PO SCH (19:56)
[2020-05-27] MEDS: methylPREDNISolone Sod Succ 40 MG VIAL IVP SCH (05:19)
[2020-05-27] MEDS: Cyclobenzaprine 10 MG TAB PO PRN (05:47)
[2020-05-27 05:50] LABS: #Lymphocytes 0.6 thou/uL (1.20-3.40); #Monocytes 0.3 thou/uL (0.11-0.59); #Neutrophils 8.2 thou/uL (1.40-6.50); %Basophils 0.4 % (0.0-1.0); %Eosinophils 0.1 % (0.0-10.0); %Lymphocytes 6.8 % (21.0-51.0); %Monocytes 3.6 % (0.0-10.0); %Neutrophils 89.2 % (42.0-75.0); Hemoglobin 15.2 g/dL (12.0-16.0); Mean Corpuscular HGB CONC 31.2 g/dL (32.0-36.0); Mean Corpuscular Hemoglobin 33.8 pg (27.0-31.0); Mean Platelet Volume 7.3 fL (7.4-10.4); Platelet Count 223 thou/uL (130-400); Red Blood Cell (RBC) Count 4.48 mill/uL (4.20-5.40); White Blood Cell (WBC) Count 9.2 thou/uL (4.8-10.8)
[2020-05-27 06:09] LABS: Anion Gap 16 mmol/L (10-20); BUN (Urea Nitrogen) 27 mg/dL (9.8-20.1); Calc. Creatinine Clearance 71 mL/min (70-130); Calcium 8.5 mg/dL (7.8-10.44); Carbon Dioxide 25 mmol/L (22-29); Chloride 102 mmol/L (98-107); Estimated GFR-MDRD 87; Glucose 112 mg/dL (70-105); Potassium 5.1 mmol/L (3.5-5.1); Sodium 138 mmol/L (136-145)
[2020-05-27] MEDS: Sodium Chloride 0.9% 1,000 ML IV SCH (06:24)
[2020-05-27] MEDS: guaiFENesin ER 600 MG TAB PO SCH (07:18)
[2020-05-27] MEDS: Enoxaparin Sodium 40 MG/0.4 ML SYRINGE SC SCH (07:18)
[2020-05-27] MEDS: Mometasone 200 MCG/Formoterol 5 MCG 120 PUFF INHALER INH SCH (07:22)
[2020-05-27 07:26] VITALS: BP 172/93
[2020-05-27 11:11] VITALS: TEMP 98.1
[2020-05-27] MEDS: cefTRIAXone\\ROCEPHIN 1 GM in Sodium Chloride 0.9% 100 ML IVPB SCH (11:19)
[2020-05-27] MEDS: Azithromycin 500 MG in Sodium Chloride 0.9% 250 ML 250 ML IVPB SCH (13:01)
--- NOTE | 2020-05-27 15:49 | EKG ---
Test Reason : Blood Pressure : / mmHG Vent. Rate : 110 BPM Atrial Rate : 110 BPM P-R Int : 162 ms QRS Dur : 102 ms QT Int : 310 ms P-R-T Axes : -88 092 092 degrees QTc Int : 419 ms Sinus tachycardia Incomplete right bundle branch block Possible Right ventricular hypertrophy Septal infarct , age undetermined Abnormal ECG No previous ECGs available Confirmed by YANIV STAFFORD M.D. ([id number]) on 05/27/2020 3:48:27 PM Referred By: DELMY Confirmed By:YANIV STAFFORD M.D.
--- NOTE | 2020-05-28 00:39 | DIS ---
DATE OF ADMISSION: 05/23/2020 DATE OF DISCHARGE: 05/27/2020 PRIMARY CARE PROVIDER: Dr. Valdivia. DISCHARGE DIAGNOSES: 1. Acute on chronic hypoxic respiratory failure. 2. Chronic obstructive pulmonary disease exacerbation. 3. COVID-19 test negative. 4. Tobacco use disorder. 5. Cocaine use. CONDITION OF PATIENT ON THE DAY OF DISCHARGE: Stable. I assessed Ms. Sanchez on the day of discharge. She denies any chest pain or shortness of breath. Vital signs are stable. S1 and S2 are heard, regular. Lungs are clear to auscultation bilaterally. DISCHARGE MEDICATIONS: She is being discharged home on: 1. Prednisone taper. 2. Cefdinir 300 mg 2 times a day for seven more days. 3. Dulera 200/5 mcg inhaler two puffs 2 times a day. 4. 21 mg nicotine patch daily. Otherwise, no change was made to her pre-admission home medications, which include albuterol inhaler p.r.n., DuoNebs p.r.n., Seroquel 200 mg at bedtime, and trazodone 200 mg at bedtime. CONSULTATIONS DURING THIS HOSPITALIZATION: Pulmonary, Dr. Senior. HOSPITAL COURSE: Ms. Sanchez is a pleasant 55-year-old lady, who was admitted to [facility] on May 23, 2020, for acute on chronic hypoxic respiratory failure secondary to COPD exacerbation. She improved with oxygen, steroids, bronchodilators, and antibiotics. She is being discharged home in a stable condition. She was seen by Pulmonary Medicine during this hospitalization. She has been advised to stop tobacco and cocaine use. Many thanks for allowing me to participate in your patient's care. Please feel free to contact me with any questions or concerns. FOLLOWUP: Post acute care followup: With primary care provider on May 30, 2020, at 10:30 a.m. and with her agricultural specialist in 2 weeks. ACTIVITY: As tolerated. DIET: Heart-healthy. DISCHARGE DESTINATION: Home. TIME SPENT: Total amount of time spent coordinating this discharge: Thirty-two minutes. Job ID: [id number]
[2020-05-28] MEDS ORDERED: predniSONE 20 MG TAB PO SCH (08:00)
--- NOTE | 2020-05-28 09:55 | PQF ---
CLINICAL DOCUMENTATION CLARIFICATION FORM: Dear Dr. Quintana Date: 05/28/2020 Please exercise your independent, professional judgment in responding to the clarification form. Clinical indicators are provided on the bottom of this form for your review. Please check appropriate box(s): [ x ] Sepsis due to Pneumonia [ ] SIRS due to non-infectious process COPD exacerbation with Acute on Chronic Respiratory Failure [ ] Localized Infection without Sepsis [ ] Other diagnosis [ ] Unable to determine In addition, please specify: Present on Admission (POA): [ x ] Yes [ ] No [ ] Unable to determine For continuity of documentation, please document condition throughout progress notes and discharge summary. Thank You. CLINICAL INDICATORS - SIGNS / SYMPTOMS / LABS / RESULTS AND LOCATION IN EMR *ED 05/23: * Shortness of breath * Vital Signs: O2 Sat 93-96% on 3L to facemask RR 22-24 Pulse 94-104 * At the [facility] it was noted that she had a right middle lobe infiltrate with a white count of 20 and a left shift with 14% bands. * Pneumonia Exacerbation of COPD, Hypoxia, Sepsis *LAB (EMR): WBC Neutrophils % 05/24 17.0 94.3 05/25 16.4 92.8 05/26 12.2 93.2 05/27 9.2 89.2 *H&P 05/23 (Mariano): * Acute on chronic hypoxic respiratory failure: This appears to be secondary to a combination of COPD and pneumonia. * Sepsis: Secondary to community-acquired pneumonia. *DC Summary 05/28 (Mariano): Acute on Chronic hypoxic respiratory failure secondary to COPD exacerbation. RISK FACTORS / RESULTS AND LOCATION IN EMR *H&P 05/23 (Mariano): * Community-acquired pneumonia * Tobacco Abuse * COPD exacerbation TREATMENTS / RESULTS AND LOCATION IN EMR *ED 05/23: She was started on Rocephin and Azithromycin. Proventil HFA. *H&P 05/23 (Mariano): The patient was started on ceftriaxone and azithromycin. I will continue these antibiotics. We will send out blood cultures. She will receive intravenous fluids. .. We will continue oxygen as needed, bronchodilators, intravenous steroids *Reports (EMR): Chest X-Ray 05/25 *LAB (EMR): CBC 05/24-05/27 *Pulmonology Consultation 05/24 ([place]) Thank you, Cherry CDS/Machine Washer Signature: Cherry Justice RN, CDS Phone #: [phone] [email or web address] This is a permanent part of the Medical Record [facility]
== END 2020-05-27 12:21 | disposition home or self-care (01) | DRG 871 ==
LOC: ERS 14:12 → T4-B 14:55 → ERS 18:43
PROVIDERS: ADMIT Internal Medicine; ATTEND Internal Medicine
DX: A41.9 Sepsis, unspecified organism (principal); J96.21 Acute and chronic respiratory failure with hypoxia; J18.9 Pneumonia, unspecified organism; J44.1 Chronic obstructive pulmonary disease with (acute) exacerbation; E44.0 Moderate protein-calorie malnutrition; Z68.1 Body mass index [BMI] 19.9 or less, adult; Z20.828 Contact with and (suspected) exposure to other viral communicable diseases; F17.210 Nicotine dependence, cigarettes, uncomplicated; M06.9 Rheumatoid arthritis, unspecified; E78.5 Hyperlipidemia, unspecified; M54.9 Dorsalgia, unspecified; G89.29 Other chronic pain; F31.9 Bipolar disorder, unspecified; F14.10 Cocaine abuse, uncomplicated; F41.9 Anxiety disorder, unspecified; Z88.2 Allergy status to sulfonamides; Z79.51 Long term (current) use of inhaled steroids; Z79.899 Other long term (current) drug therapy; Z99.81 Dependence on supplemental oxygen
CPT/HCPCS: 36415; 71046; 80048; 84484; 85025; 87070; 87205; 93005; 93010; 94640; 96365; 96366; J0456; J0696; J1650; J2405; J2920; J3475; J3490; J7050; J7620; U0002

== ENCOUNTER 2020-09-09 15:05 | Inpatient (IN) | payer MEDICARE ==
[2020-09-09] MEDS ORDERED: Ipratropium Bromide 2.5 ml Neb ONE (15:45)
[2020-09-09] MEDS ORDERED: Albuterol Sulfate 2.5 mg/3 ml Neb ONE (15:45)
[2020-09-09 15:51] LABS: Hemoglobin 17.1 g/dL (12.0-16.0); Mean Corpuscular Hemoglobin 31.6 pg (27.0-31.0); Mean Platelet Volume 8.4 fL (7.4-10.4); Platelet Count 237 thou/uL (130-400); RBC Distribution Width 12.7 % (11.5-14.5); Red Blood Cell (RBC) Count 5.42 mill/uL (4.20-5.40); White Blood Cell (WBC) Count 22.1 thou/uL (4.8-10.8)
[2020-09-09 15:55] LABS: INR-International Normal Ratio 0.9; PTT 32.6 sec (22.9-36.1)
[2020-09-09 16:11] LABS: Band 40 % (5-11); Lymphocytes 1 % (21-51); MDiff Complete? YES; Macrocytosis SLIGHT = 6-15 cells (100X) (0-5/hpf); Monocytes 2 % (0-10); Neutrophil 54 % (42-75); Platelet Morphology Comment Appears Adequate; Polychromasia SLIGHT = 2-3 cells (100X) (0-2/hpf); Reactive Lymphocytes 3 % (0-10)
[2020-09-09 16:31] LABS: ALT (SGPT) 8 U/L (8-55); AST (SGOT) 23 U/L (5-34); Albumin 4.3 g/dL (3.5-5.0); Alkaline Phosphatase 88 U/L (40-110); Anion Gap 18 mmol/L (10-20); BUN (Urea Nitrogen) 19 mg/dL (9.8-20.1); Bilirubin, Total 0.5 mg/dL (0.2-1.2); CK (CPK) 30 U/L (29-168); Calc. Creatinine Clearance 0 mL/min (70-130); Calcium 8.8 mg/dL (7.8-10.44); Carbon Dioxide 28 mmol/L (22-29); Chloride 100 mmol/L (98-107); Globulin 3.2 g/dL (2.4-3.5); Glucose 96 mg/dL (70-105); Protein, Total 7.5 g/dL (6.0-8.3); Sodium 141 mmol/L (136-145)
--- NOTE | 2020-09-09 16:36 | RAD ---
PORTABLE CHEST: Indications: COPD Comparison: 09-08-2020 FINDINGS: The lungs remain clear. There is hyperexpansion flattened diaphragm which is stable. No evidence of v ascular congestion or infiltrate. Heart and mediastinum unremarkable and stable. IMPRESSION: No acute finding or interval change from exam yesterday. POS: AGW
[2020-09-09 16:53] LABS: SARS-CoV-2 NAA Rapid Test Not Detected (NotDetected)
[2020-09-09] MEDS ORDERED: Cefepime 2 GM VIAL ONE (17:03)
[2020-09-09] MEDS ORDERED: Levofloxacin 500 mg/D5W 100 ml Premix Bag ONE ×3 (17:05→17:06)
[2020-09-09] MEDS ORDERED: Vancomycin 1 GM/200 ML BAG ONE (19:19)
--- NOTE | 2020-09-09 19:52 | HP ---
PRIMARY CARE PHYSICIAN: Dr. Baldwin. CHIEF COMPLAINT: Shortness of breath. HISTORY OF PRESENT ILLNESS: Ms. Sanchez is a very pleasant 55-year-old female, who has a history of COPD. She was in her usual state of health until about 4 days ago, she says she started having some cough and shortness of breath off and on. She says it was getting progressively worse. She tried using her home nebulizer machine without much improvement and it got to the point where she frankly could not breathe and called out for help. Her elderly parents who is called 911 and she was brought to the hospital. She was evaluated in the ER and found to be in most likely a COPD exacerbation. Chest x-ray was done, which was negative. She had a rapid COVID screen, which was also negative and is being brought in to the hospital for COPD exacerbation. Initially, she was hypoxic with supplemental oxygen and required BiPAP, but she has subsequently been weaned off that onto nasal cannula. She also reports that she had come to the emergency room yesterday with similar symptoms, was treated with azithromycin or Z-Clyde and was released. REVIEW OF SYSTEMS: All systems were reviewed and are negative except for that mentioned in the history of present illness. PAST MEDICAL HISTORY: Significant for COPD, chronic low back pain, Irlanda granulomatosis, and rheumatoid arthritis. PAST SURGICAL HISTORY: She has had a surgery on the right index finger, right ankle surgery, right knee surgery, and neck fusion. ALLERGIES: TO SULFA. SOCIAL HISTORY: She admits to continuing to smoke cigarettes, which she has done for years. She also says that she smokes crack cocaine and has been trying to stop. She denies any alcohol use. FAMILY HISTORY: Significant for family members with lung disease as well. CURRENT MEDICATIONS: Include: 1. Trazodone 400 mg daily. 2. Seroquel 200 mg daily. 3. Albuterol inhaler twice a day as well as albuterol nebs. PHYSICAL EXAMINATION: GENERAL: She is alert and oriented. She appears to be in no acute distress. She is a bit thin and frail in appearance. VITAL SIGNS: Blood pressure was 144/88, heart rate 88, respiratory rate of 24, temperature is 97.5, and O2 saturation was 100% when she was on CPAP and now is in the 90s on nasal cannula 4 L. HEENT: Pupils are equal, round, and reactive to light. Extraocular muscles are intact. Her sclerae are anicteric. NECK: There is no adenopathy, no bruits. LUNGS: She has bilateral wheezing and rhonchi and there are some crackles at the bases. CARDIOVASCULAR: She has a normal S1 and S2. There is no S3 or S4. No murmurs, clicks, or rubs. ABDOMEN: Soft, nontender, nondistended. Positive for bowel sounds. There is no rebound, no guarding, no organomegaly. EXTREMITIES: There is no clubbing or cyanosis. No edema. NEUROLOGIC: The exam is grossly nonfocal. SKIN AND INTEGUMENT: No skin changes. No rash. LABORATORY DATA: White blood cell count is 22.1, hemoglobin is 17.1, hematocrit is 55.3, and platelet count is 237. INR 0.9. Chemistry; sodium 141, potassium 5.0, chloride is 100, CO2 is 28, BUN of 19, creatinine 0.73, glucose is 96. COVID screen was negative. ASSESSMENT: Ms. Sanchez is a 55-year-old female, who presents to the emergency room with respiratory failure due to chronic obstructive pulmonary disease exacerbation. She has failed an attempt at outpatient treatment. She will be admitted to the medical floor, started on antibiotics for chronic obstructive pulmonary disease exacerbation, IV steroids, and supplemental oxygen. She will also be placed on deep venous thrombosis prophylaxis and gastrointestinal prophylaxis. For her rheumatoid arthritis and Irlanda's, we will need to reconcile and restart her home medications. Job ID: [id number]
[2020-09-09] MEDS ORDERED: Ondansetron ODT 4 MG TAB SL PRN (20:15)
[2020-09-09] MEDS ORDERED: Acetaminophen 325 MG TAB PO PRN (20:15)
[2020-09-09] MEDS ORDERED: Ondansetron PF 4 MG/2 ML Vial IVP PRN ×2 (20:15→20:16)
[2020-09-09] MEDS ORDERED: Ondansetron ODT 4 MG TAB PO PRN (20:16)
[2020-09-09] MEDS ORDERED: Benzonatate 100 MG CAP PO PRN (20:16)
[2020-09-09] MEDS ORDERED: Enoxaparin Sodium 40 MG/0.4 ML SYRINGE SC SCH (21:00)
[2020-09-09] MEDS: methylPREDNISolone Sod Succ 40 MG VIAL IVP SCH (21:31)
[2020-09-09] MEDS: Famotidine 20 MG TAB PO SCH (21:34)
[2020-09-09] MEDS: traZODone HCl 50 MG TAB PO SCH (21:35)
[2020-09-09 22:31] VITALS: BMI 20.3
[2020-09-10 06:38] LABS: #Lymphocytes 0.7 thou/uL (1.20-3.40); #Monocytes 0.4 thou/uL (0.11-0.59); #Neutrophils 13.8 thou/uL (1.40-6.50); %Basophils 0.1 % (0.0-1.0); %Eosinophils 0.1 % (0.0-10.0); %Lymphocytes 4.4 % (21.0-51.0); %Monocytes 2.7 % (0.0-10.0); %Neutrophils 92.7 % (42.0-75.0); Hemoglobin 14.5 g/dL (12.0-16.0); Mean Corpuscular HGB CONC 31.4 g/dL (32.0-36.0); Mean Corpuscular Hemoglobin 32.5 pg (27.0-31.0); Platelet Count 192 thou/uL (130-400); RBC Distribution Width 12.7 % (11.5-14.5); Red Blood Cell (RBC) Count 4.46 mill/uL (4.20-5.40); White Blood Cell (WBC) Count 14.9 thou/uL (4.8-10.8)
[2020-09-10 06:54] LABS: Anion Gap 12 mmol/L (10-20); BUN (Urea Nitrogen) 22 mg/dL (9.8-20.1); Calc. Creatinine Clearance 72 mL/min (70-130); Calcium 8.4 mg/dL (7.8-10.44); Carbon Dioxide 29 mmol/L (22-29); Chloride 100 mmol/L (98-107); Glucose 163 mg/dL (70-105); Potassium 4.5 mmol/L (3.5-5.1); Sodium 136 mmol/L (136-145)
[2020-09-10] MEDS: Famotidine 20 MG TAB PO SCH ×2 (08:29→20:37)
[2020-09-10] MEDS: methylPREDNISolone Sod Succ 40 MG VIAL IVP SCH ×2 (08:30→20:38)
[2020-09-10] MEDS: Acetaminophen 325 MG TAB PO PRN ×2 (08:32→17:47)
[2020-09-10] MEDS ORDERED: Diabetic Tussin 200 MG/10 ML UDCUP PO PRN (09:47)
[2020-09-10] MEDS: Acetaminophen/Codeine 30-300mg Tablet PO PRN ×2 (13:00→20:44)
--- NOTE | 2020-09-10 13:10 | CON ---
DATE OF CONSULTATION: 09/10/2020 HISTORY OF PRESENT ILLNESS: Vanessa Sanchez is a 55-year-old female who came to the ER yesterday with progressive shortness of breath from [place]. She sees a doctor over there. She is still smoking. Her gifford test is negative. Her saturations were in the ER on a BiPAP/CPAP 100%, respirations 28, pulse 88, blood pressure 140/88. This morning, she is awake, alert, responsive, better, still weak, still short of breath. Had a good day. She can barely walk 12 feet without getting markedly short of breath. PAST MEDICAL HISTORY: COPD, tobacco abuse, arthritis, chronic asthma, history of apparently Irlanda's unclear where this was diagnosed. She sees doctor out of town. History of major anxiety. PREVIOUS SURGERIES: None recently, but previous history of hand surgery, ankle surgery, neck fusion. PHYSICAL EXAMINATION: VITAL SIGNS: Temperature 97, pulse 80, respirations 18, saturations 100% on 2 L, blood pressure 143/82. CHEST: No wheezing, no crackles. CARDIAC: Normal S1, S2. ABDOMEN: No masses. LABORATORY DATA: White count 14,000, hemoglobin and hematocrit 14 and 46, platelet count 92, big shift. Lytes are normal. X-ray is unremarkable. ASSESSMENT: Chronic obstructive pulmonary disease exacerbation, bronchitis, ongoing tobacco use, history of Irlanda's. I would switch over to oral medication tomorrow. We will notify Dr. Govea in the morning. He will follow up. Consultation note, 70 minutes, 50% direct patient care. Job ID: [id number]
[2020-09-10] MEDS: Mometasone 200 MCG/Formoterol 5 MCG 120 PUFF INHALER INH SCH (19:30)
[2020-09-10] MEDS: guaiFENesin ER 600 MG TAB PO SCH (20:37)
[2020-09-10] MEDS: traZODone HCl 50 MG TAB PO SCH (20:37)
--- NOTE | 2020-09-10 23:48 | PDOC.HOSPP ---
- Subjective Encounter Date: 09/10/20 Encounter Time: 13:00 Subjective: Patient seen and examined for respiratory failure. Denies any new complaints. Shortness of breath improving. Complains of dry cough. No chest pain or palpitations. - Objective Vital Signs & Weight: Vital Signs (12 hours) Temp Pulse Resp BP Pulse Ox 09/10/20 20:00 98.0 F 104 H 18 139/75 92 L 09/10/20 19:29 103 H 16 92 L 09/10/20 17:45 102 H 18 92 L 09/10/20 14:56 98.9 F 100 18 149/84 H 92 L 09/10/20 14:35 88 16 93 L Weight Weight 122 lb 5.705 oz I&O: 09/09/20 09/10/20 09/11/20 06:59 06:59 06:59 Intake Total 1010 Output Total 1000 Balance 10 Result Diagrams: 09/11/20 06:48 09/11/20 06:48 Radiology Reviewed by me: Yes (Chest x-rayno new infiltrate) Hospitalist ROS - Review of Systems Cardiovascular: denies: chest pain, palpitations, orthopnea, paroxysmal noc. dyspnea, edema, light headedness, other - Medication Medications: Active Medications Generic Name Dose Route Start Last Admin Trade Name Freq PRN Reason Stop Dose Admin Acetaminophen 650 mg 09/09/20 20:16 09/10/20 17:47 Acetaminophen 325 Mg Tab PO 650 mg Q4H PRN Administration Headache/Fever/Mild Pain (1-3) Acetaminophen/Codeine Phosphate 1 tab 09/10/20 12:48 09/10/20 20:44 Acetaminophen/Codeine 30-300mg Tablet PO 1 tab Q4H PRN Administration Moderate Pain (4-6) Albuterol/Ipratropium 3 ml 09/09/20 20:16 09/10/20 19:29 Ipratropium/Albuterol Sulfate 3 Ml Neb NEB 3 ml [id number] LORIN Administration Famotidine 20 mg 09/09/20 21:00 09/10/20 20:37 Famotidine 20 Mg Tab PO 20 mg BID LORIN Administration Guaifenesin 600 mg 09/10/20 21:00 09/10/20 20:37 Guaifenesin Er 600 Mg Tab PO 600 mg Q12HR LORIN Administration Levofloxacin 750 mg/ Device 150 mls @ 100 mls/hr 09/10/20 17:00 09/10/20 16:21 IVPB 150 mls 1700 LORIN Administration Methylprednisolone Sodium Succinate 40 mg 09/09/20 21:00 09/10/20 20:38 Methylprednisolone Sod Succ 40 Mg Vial IVP 40 mg BID LORIN Administration Mometasone Furoate/Formoterol Fumar 2 puff 09/10/20 18:30 09/10/20 19:30 Mometasone 200 Mcg/Formoterol 5 Mcg 120 Puff Inhaler INH 2 puff BID-RT LORIN Administration Quetiapine Fumarate 200 mg 09/09/20 21:00 09/10/20 20:38 Quetiapine Fumarate 200 Mg Tab PO 200 mg HS LORIN Administration Trazodone HCl 200 mg 09/09/20 21:00 09/10/20 20:37 Trazodone Hcl 50 Mg Tab PO 200 mg HS LORIN Administration - Exam General Appearance: ill appearing Eye: PERRL, anicteric sclera, scleral icterus ENT: normocephalic atraumatic, no oropharyngeal lesions, moist mucosa Neck: supple, symmetric, no JVD, no thyromegaly Heart: RRR, no gallops, no rubs, normal peripheral pulses Respiratory: normal chest expansion, rhonchi, tachypneic, wheezes Gastrointestinal: soft, non-tender, no guarding, no rigidity Extremities: no cyanosis, no clubbing, no edema Extremities - other findings: No calf tenderness Skin: normal turgor, no lesions Neurological: no new deficit Psychiatric: normal affect, A&O x 3 Hosp A/P - Plan DVT proph w/SCDs Acute on chronic hypoxic respiratory failurePOA Severe sepsis due to acute bronchitisPOA COPD exacerbation Ongoing tobacco abuse Chronic respiratory failure on home oxygen Anxiety Plan: Continue nebulizer treatments. Continue IV steroids. We will continue Levaqui n. We will continue selected home medications. Continue GI and DVT prophylaxis. Pulmonary input appreciated.
[2020-09-11 07:27] LABS: Anion Gap 12 mmol/L (10-20); BUN (Urea Nitrogen) 23 mg/dL (9.8-20.1); Calc. Creatinine Clearance 76 mL/min (70-130); Calcium 8.5 mg/dL (7.8-10.44); Carbon Dioxide 30 mmol/L (22-29); Chloride 102 mmol/L (98-107); Glucose 163 mg/dL (70-105); Potassium 4.2 mmol/L (3.5-5.1); Sodium 140 mmol/L (136-145)
[2020-09-11] MEDS: Famotidine 20 MG TAB PO SCH ×2 (08:34→20:11)
[2020-09-11] MEDS: guaiFENesin ER 600 MG TAB PO SCH ×2 (08:35→20:11)
[2020-09-11] MEDS: methylPREDNISolone Sod Succ 40 MG VIAL IVP SCH ×2 (08:35→20:11)
[2020-09-11 09:21] LABS: #Lymphocytes 0.4 thou/uL (1.20-3.40); #Monocytes 0.4 thou/uL (0.11-0.59); #Neutrophils 8.1 thou/uL (1.40-6.50); %Basophils 0.1 % (0.0-1.0); %Lymphocytes 4.1 % (21.0-51.0); %Monocytes 3.9 % (0.0-10.0); %Neutrophils 91.8 % (42.0-75.0); Hemoglobin 14.1 g/dL (12.0-16.0); MDiff Complete? YES; Macrocytosis SLIGHT = 6-15 cells (100X) (0-5/hpf); Mean Corpuscular HGB CONC 30.5 g/dL (32.0-36.0); Mean Platelet Volume 8.3 fL (7.4-10.4); Platelet Count 178 thou/uL (130-400); Platelet Morphology Comment Appears Adequate; Polychromasia SLIGHT = 2-3 cells (100X) (0-2/hpf); RBC Distribution Width 12.6 % (11.5-14.5); White Blood Cell (WBC) Count 8.8 thou/uL (4.8-10.8)
[2020-09-11] MEDS: Acetaminophen/Codeine 30-300mg Tablet PO PRN ×2 (13:12→17:14)
[2020-09-11] MEDS: Mometasone 200 MCG/Formoterol 5 MCG 120 PUFF INHALER INH SCH ×2 (16:41→19:17)
[2020-09-11] MEDS: traZODone HCl 50 MG TAB PO SCH (20:11)
--- NOTE | 2020-09-11 21:00 | PDOC.HOSPP ---
- Subjective Encounter Date: 09/11/20 Encounter Time: 15:00 Subjective: Patient seen and examined for COPD exacerbation. Shortness of breath improving. Mild productive cough. Denies any fever or chills. No chest pain or palpitations. - Objective Vital Signs & Weight: Vital Signs (12 hours) Temp Pulse Resp BP Pulse Ox 09/11/20 20:00 98.8 F 115 H 20 138/78 96 09/11/20 19:16 113 H 16 94 L 09/11/20 16:10 104 H 16 95 Weight Weight 122 lb 5.705 oz I&O: 09/10/20 09/11/20 09/12/20 06:59 06:59 06:59 Intake Total 1810 970 Output Total 1000 Balance 810 970 Result Diagrams: 09/11/20 06:48 09/11/20 06:48 Additional Labs: Abnormal Lab Results - Last 48 hrs 09/10/20 05:54: BUN 22 H 09/10/20 05:54: WBC 14.9 H, MCV 103.0 H, MCH 32.5 H, MCHC 31.4 L, Neutrophils % 92.7 H, Lymphocytes % 4.4 L, Neutrophils # 13.8 H, Lymphocytes # 0.7 L 09/11/20 06:48: Carbon Dioxide 30 H, BUN 23 H 09/11/20 06:48: MCV 105.0 H, MCH 32.0 H, MCHC 30.5 L, Neutrophils % 91.8 H, Lymphocytes % 4.1 L, Neutrophils # 8.1 H, Lymphocytes # 0.4 L Microbiology - Entire Visit 09/09/20 15:37 Venous blood - Right Arm Blood Culture - Preliminary NO GROWTH AT 48 HOURS 09/09/20 15:33 Venous blood - Left Hand Blood Culture - Preliminary NO GROWTH AT 48 HOURS Radiology Reviewed by me: Yes (Chest x-rayreviewed) Hospitalist ROS - Review of Systems Constitutional: reports: weakness, malaise. denies: fever, chills, sweats, other Gastrointestinal: denies: nausea, vomiting, abdominal pain, diarrhea, constipation, melena, hematochezia, other - Medication Medications: Active Medications Generic Name Dose Route Start Last Admin Trade Name Freq PRN Reason Stop Dose Admin Acetaminophen 650 mg 09/09/20 20:16 09/10/20 17:47 Acetaminophen 325 Mg Tab PO 650 mg Q4H PRN Administration Headache/Fever/Mild Pain (1-3) Acetaminophen/Codeine Phosphate 1 tab 09/10/20 12:48 09/11/20 17:14 Acetaminophen/Codeine 30-300mg Tablet PO 1 tab Q4H PRN Administration Moderate Pain (4-6) Albuterol/Ipratropium 3 ml 09/09/20 20:16 09/11/20 19:16 Ipratropium/Albuterol Sulfate 3 Ml Neb NEB 3 ml [id number] LORIN Administration Famotidine 20 mg 09/09/20 21:00 09/11/20 20:11 Famotidine 20 Mg Tab PO 20 mg BID LORIN Administration Guaifenesin 600 mg 09/10/20 21:00 09/11/20 20:11 Guaifenesin Er 600 Mg Tab PO 600 mg Q12HR LORIN Administration Levofloxacin 750 mg/ Device 150 mls @ 100 mls/hr 09/10/20 17:00 09/11/20 16:01 IVPB 150 mls 1700 LORIN Administration Methylprednisolone Sodium Succinate 40 mg 09/09/20 21:00 09/11/20 20:11 Methylprednisolone Sod Succ 40 Mg Vial IVP 40 mg BID LORIN Administration Mometasone Furoate/Formoterol Fumar 2 puff 09/10/20 18:30 09/11/20 19:17 Mometasone 200 Mcg/Formoterol 5 Mcg 120 Puff Inhaler INH 2 puff BID-RT LORIN Administration Quetiapine Fumarate 200 mg 09/09/20 21:00 09/11/20 20:11 Quetiapine Fumarate 200 Mg Tab PO 200 mg HS LORIN Administration Trazodone HCl 200 mg 09/09/20 21:00 09/11/20 20:11 Trazodone Hcl 50 Mg Tab PO 200 mg HS LORIN Administration - Exam General Appearance: ill appearing Neck: supple, no JVD Heart: RRR, no gallops Respiratory: rales, rhonchi, wheezes (Scattered) Gastrointestinal: soft, non-distended, normal bowel sounds Extremities: no cyanosis, no clubbing Neurological: no new deficit Hosp A/P - Plan DVT proph w/lovenox, DVT proph w/SCDs Acute on chronic hypoxic respiratory failure Severe sepsis due to acute bronchitis COPD exacerbation Ongoing tobacco abuse Chronic respiratory failure on home oxygen Anxiety Plan: WBC count is normal today. Blood culture remain negative. Continue Levaquin with Solu-Medrol 40 mg twice daily. Continue nebulizer treatment. Continue trazodone and Seroquel. Continue to monitor. Will probably change steroids and antibiotics to p.o. in 24 hours if stable
[2020-09-12] MEDS: Acetaminophen/Codeine 30-300mg Tablet PO PRN ×2 (03:09→08:50)
[2020-09-12 06:31] LABS: #Lymphocytes 0.5 thou/uL (1.20-3.40); #Monocytes 0.4 thou/uL (0.11-0.59); #Neutrophils 8.6 thou/uL (1.40-6.50); %Basophils 0.1 % (0.0-1.0); %Eosinophils 0.1 % (0.0-10.0); %Monocytes 4.4 % (0.0-10.0); %Neutrophils 90.4 % (42.0-75.0); Hemoglobin 14.4 g/dL (12.0-16.0); Mean Corpuscular HGB CONC 31.4 g/dL (32.0-36.0); Mean Corpuscular Hemoglobin 32.9 pg (27.0-31.0); Platelet Count 169 thou/uL (130-400); RBC Distribution Width 12.5 % (11.5-14.5); Red Blood Cell (RBC) Count 4.38 mill/uL (4.20-5.40); White Blood Cell (WBC) Count 9.6 thou/uL (4.8-10.8)
[2020-09-12 06:53] LABS: Anion Gap 12 mmol/L (10-20); BUN (Urea Nitrogen) 26 mg/dL (9.8-20.1); Calc. Creatinine Clearance 74 mL/min (70-130); Calcium 8.6 mg/dL (7.8-10.44); Carbon Dioxide 32 mmol/L (22-29); Chloride 100 mmol/L (98-107); Glucose 122 mg/dL (70-105); Potassium 4.7 mmol/L (3.5-5.1); Sodium 139 mmol/L (136-145)
[2020-09-12 07:08] VITALS: BP 132/84; TEMP 97.7
[2020-09-12] MEDS: Mometasone 200 MCG/Formoterol 5 MCG 120 PUFF INHALER INH SCH (08:26)
[2020-09-12] MEDS: methylPREDNISolone Sod Succ 40 MG VIAL IVP SCH (08:43)
[2020-09-12] MEDS: guaiFENesin ER 600 MG TAB PO SCH (08:43)
[2020-09-12] MEDS: Famotidine 20 MG TAB PO SCH (08:43)
--- NOTE | 2020-09-12 15:25 | PRG ---
DATE OF SERVICE: 09/12/2020 SUBJECTIVE: Ms. Sanchez says she is back to her baseline. She is wearing 2 L/minute oxygen, which she wears at home. She says she is down to 3 cigarettes a day. OBJECTIVE: LUNGS: Free of wheezes. HEART: Regular rhythm. ABDOMEN: Soft. IMPRESSION: Chronic obstructive pulmonary disease exacerbation. PLAN: I believe she is stable to go home with slow steroid taper. Continue with oxygen at home and her nebulizer treatments. She is encouraged not to smoke after discharge. I could see no benefit to leaving her in the hospital for another 24 hours. Job ID: [id number]
--- NOTE | 2020-09-12 20:24 | PDOC.DS.DS ---
Provider - Provider Date of Admission: 09/09/20 16:52 Date of Discharge: 09/12/20 Admitting Provider: Ruperto Sahni MD Consultations: Pulmonary Primary Care Physician: Denzel Sin Course - Hospital Course Hospital Course: Patient is a 55-year-old female with COPD on home oxygen presented to the emergency room with worsening shortness of breath of 4 days duration without significant improvement with home nebulizer. She was placed on noninvasive positive pressure ventilation in the emergency room. Chest x-ray was negative for infiltrate or edema. WBC count on admission was 22.1 with 40% bandemia. At discharge the WBC count is 9.6 without bandemia. She showed good improvement with nebulizer treatment, O2 supplementation, IV steroids with Levaquin. Patient was also evaluated by pulmonary Dr. Govea. Patient has been cleared by pulmonary for discharge. She was advised to follow-up with Dr. Govea as outpatient. She was extensively counseled on tobacco cessation Final diagnosis: Acute on chronic hypoxic respiratory failure Severe sepsis due to acute bronchitis COPD exacerbation Ongoing tobacco abuse Chronic respiratory failure on home oxygen Anxiety Time coordinating the discharge of this patient was 33 minutes. Resuscitation Status: 09/09/20 18:47 Resuscitation Status Routine Resuscitation Status: FULL: Full Resuscitation - Labs Lab Results: 09/12/20 06:02 09/12/20 06:02 Abnormal Lab Results - Last 48 hrs 09/11/20 06:48: Carbon Dioxide 30 H, BUN 23 H 09/11/20 06:48: MCV 105.0 H, MCH 32.0 H, MCHC 30.5 L, Neutrophils % 91.8 H, Lymphocytes % 4.1 L, Neutrophils # 8.1 H, Lymphocytes # 0.4 L 09/12/20 06:02: Carbon Dioxide 32 H, BUN 26 H 09/12/20 06:02: MCV 105.0 H, MCH 32.9 H, MCHC 31.4 L, Neutrophils % 90.4 H, Lymphocytes % 5.0 L, Neutrophils # 8.6 H, Lymphocytes # 0.5 L Microbiology - Entire Visit 09/09/20 15:37 Venous blood - Right Arm Blood Culture - Preliminary NO GROWTH AT 48 HOURS 09/09/20 15:33 Venous blood - Left Hand Blood Culture - Preliminary NO GROWTH AT 48 HOURS - Physical Exam Vitals: Vital Signs (12 hours) Pulse Resp Pulse Ox 09/12/20 08:26 89 16 93 L Weight Weight 122 lb 5.705 oz Physical Exam: The patient was seen and examined on the day of discharge. Plan - Discharge Medications Prescriptions: Cefdinir [Omnicef] 300 mg PO BID #10 cap predniSONE 20 mg PO ASDIR #16 tab Home Medications: Medication Instructions Recorded Confirmed Type QUEtiapine Fumarate [SEROquel] 200 mg PO HS 08/10/17 09/09/20 History traZODone HCl [Trazodone HCl] 200 mg PO HS 08/10/17 09/09/20 History Cefdinir [Omnicef] 300 mg PO BID #10 cap 09/12/20 Rx predniSONE 20 mg PO ASDIR #16 tab 09/12/20 Rx Allergies: Sulfa (Sulfonamide Antibiotics) Allergy (Verified 09/09/20 21:00) - Follow up Plan Referrals: Ray Valdivia MD [Primary Care Provider] - 7 Days Yung Govea MD [Active] - 7 Days Disposition: HOME Quality - Care Measures CORE MEASURES:: N/A
== END 2020-09-12 13:51 | disposition home or self-care (01) | DRG 871 ==
LOC: ERS 15:05 → T4-B 16:52
PROVIDERS: ADMIT Internal Medicine; ATTEND Internal Medicine
DX: A41.9 Sepsis, unspecified organism (principal); J96.21 Acute and chronic respiratory failure with hypoxia; J44.1 Chronic obstructive pulmonary disease with (acute) exacerbation; M31.30 Wegener's granulomatosis without renal involvement; J44.0 Chronic obstructive pulmonary disease with (acute) lower respiratory infection; R65.20 Severe sepsis without septic shock; F41.9 Anxiety disorder, unspecified; F31.9 Bipolar disorder, unspecified; E78.00 Pure hypercholesterolemia, unspecified; F17.210 Nicotine dependence, cigarettes, uncomplicated; G89.29 Other chronic pain; M54.5 Low back pain; J20.9 Acute bronchitis, unspecified; Z20.822 Contact with and (suspected) exposure to COVID-19; M06.9 Rheumatoid arthritis, unspecified; Z88.2 Allergy status to sulfonamides; Z79.899 Other long term (current) drug therapy; Z98.890 Other specified postprocedural states; Z79.51 Long term (current) use of inhaled steroids; Z99.81 Dependence on supplemental oxygen
CPT/HCPCS: 0240U; 36415; 71045; 80048; 80053; 82550; 83605; 83735; 84443; 84484; 85025; 85610; 85730; 87040; 93005; 94640; 94644; 94660; 94760; 96365; 96366; 96368; 96375; 99292; J0692; J1650; J1956; J2920; J3370; J7611; J7620

== ENCOUNTER 2020-09-17 17:14 | Emergency (ER) | payer MEDICARE ==
[2020-09-17] MEDS ORDERED: Magnesium 2 GM/50 ML BAG (IN WATER) ONE ×2 (17:35)
[2020-09-17] MEDS ORDERED: Albuterol Sulfate 2.5 mg/3 ml Neb ONE ×2 (17:39)
--- NOTE | 2020-09-17 17:51 | RAD ---
Portable frontal chest radiograph: 09/17/2020 COMPARISON: 09/09/2020 HISTORY: COPD, dyspnea, decreased breath sounds FINDINGS: There is pulmonary hyperinflation and increased linear interstitial density, consistent wit h the provided history of COPD. These findings are similar when compared to the prior exam. There is no pneumothorax or pleural fluid and no focal consolidation or alveolar edema. Areas of interstitial prominence seen on the prior examination in the upper lobes and the lateral asp ect of the right lung have improved IMPRESSION: Interstitial prominence and pulmonary hyperinflation consistent with COPD. Please see abo ve discussion. No focal consolidation.
[2020-09-17 18:06] LABS: ALT (SGPT) 23 U/L (8-55); AST (SGOT) 23 U/L (5-34); Albumin 4.3 g/dL (3.5-5.0); Alkaline Phosphatase 84 U/L (40-110); Anion Gap 15 mmol/L (10-20); BUN (Urea Nitrogen) 27 mg/dL (9.8-20.1); Bilirubin, Total 0.5 mg/dL (0.2-1.2); Calc. Creatinine Clearance 0 mL/min (70-130); Calcium 8.6 mg/dL (7.8-10.44); Carbon Dioxide 30 mmol/L (22-29); Chloride 97 mmol/L (98-107); Globulin 3.2 g/dL (2.4-3.5); Glucose 110 mg/dL (70-105); Potassium 5.6 mmol/L (3.5-5.1); Protein, Total 7.5 g/dL (6.0-8.3); Sodium 136 mmol/L (136-145)
[2020-09-17 18:12] LABS: #Eosinphils 0.1 thou/uL (0.0-0.7); #Lymphocytes 0.6 thou/uL (1.20-3.40); #Monocytes 0.2 thou/uL (0.11-0.59); #Neutrophils 10.9 thou/uL (1.40-6.50); %Eosinophils 0.5 % (0.0-10.0); %Lymphocytes 5.1 % (21.0-51.0); %Monocytes 1.6 % (0.0-10.0); %Neutrophils 92.9 % (42.0-75.0); Hemoglobin 15.8 g/dL (12.0-16.0); Mean Corpuscular Hemoglobin 32.7 pg (27.0-31.0); Mean Platelet Volume 6.7 fL (7.4-10.4); Platelet Count 265 thou/uL (130-400); RBC Distribution Width 12.7 % (11.5-14.5); Red Blood Cell (RBC) Count 4.82 mill/uL (4.20-5.40); White Blood Cell (WBC) Count 11.7 thou/uL (4.8-10.8)
[2020-09-17 20:17] LABS: Anion Gap 15 mmol/L (10-20); BUN (Urea Nitrogen) 22 mg/dL (9.8-20.1); Calc. Creatinine Clearance 0 mL/min (70-130); Calcium 8.3 mg/dL (7.8-10.44); Carbon Dioxide 30 mmol/L (22-29); Chloride 95 mmol/L (98-107); Glucose 240 mg/dL (70-105); Potassium 4.9 mmol/L (3.5-5.1); Sodium 135 mmol/L (136-145)
[2020-09-18 09:49] LABS: Base Excess-Venous 6.4 mmol/L (-2.0 to 3.0); Bicarbonate (HCO3v) 33.3 mmol/L (22.0-28.0); CO2 Tension (PvCO2) 52.9 mmHg (40.0-50.0); vO2 Saturation-calc 99.3 % (60.0-85.0)
[2020-09-18 09:50] LABS: Calcium, Ionized 0.86 mmol/L (1.15-1.33); Chloride 98 mmol/L (98-107); Hemoglobin - Calc 19.7 g/dL (12.0-16.0); Potassium 8.5 mmol/L (3.5-5.1); Sodium 132 mmol/L (138-145); T. Carbon Dioxide 34.9 mmol/L (22.0-28.0)
[2020-09-18 09:51] LABS: Lactate 2.77 mmol/L (0.50-2.20)
--- NOTE | 2020-09-21 10:20 | EKG ---
Test Reason : SOB Blood Pressure : / mmHG Vent. Rate : 096 BPM Atrial Rate : 096 BPM P-R Int : 124 ms QRS Dur : 098 ms QT Int : 380 ms P-R-T Axes : 076 254 025 degrees QTc Int : 480 ms Normal sinus rhythm Biatrial enlargement Right superior axis deviation Incomplete right bundle branch block Right ventricular hypertrophy Cannot rule out Anterior infarct , age undetermined Abnormal ECG Confirmed by FLORENCIO WICK ([id number]), editorial specialist OTILIA MCKNIGHT ([id number]) on 09/21/2020 10:19:58 AM Referred By: MELCHOR Confirmed By:FLORENCIO Watson
== END 2020-09-17 20:49 | disposition home or self-care (01) ==
LOC: ERS 17:14
DX: J44.1 Chronic obstructive pulmonary disease with (acute) exacerbation (principal); E78.00 Pure hypercholesterolemia, unspecified; M06.9 Rheumatoid arthritis, unspecified; F17.210 Nicotine dependence, cigarettes, uncomplicated; Z79.899 Other long term (current) drug therapy
CPT/HCPCS: 36415; 71045; 80053; 82330; 82435; 82803; 83605; 84132; 84295; 84443; 85014; 85025; 85379; 93005; 94644; 96365; J3475; J7611; J7620

== ENCOUNTER 2020-09-27 11:11 | Inpatient (IN) | payer MEDICARE ==
[2020-09-27] MEDS ORDERED: Albuterol Sulfate 2.5 mg/3 ml Neb ONE (11:24)
[2020-09-27] MEDS ORDERED: Magnesium 2 GM/50 ML BAG (IN WATER) ONE (11:35)
--- NOTE | 2020-09-27 12:00 | RAD ---
Exam: Chest one view HISTORY:Dyspnea. Symptoms x3-4 days. Comparison: 09/17/2020 FINDINGS: Cardiac silhouette: Normal Aorta: Unremarkable Pulmonary vessels: Normal Costophrenic angles: Clear LUNGS: Hyperinflation. Chronic changes. No masses or consolidation. Pneumothorax: None Osseous abnormalities: Interval evaluated cervical fusion hardware. IMPRESSION: COPD.
[2020-09-27 12:04] LABS: #Eosinphils 0.1 thou/uL (0.0-0.7); #Lymphocytes 0.9 thou/uL (1.20-3.40); #Monocytes 0.9 thou/uL (0.11-0.59); #Neutrophils 10.5 thou/uL (1.40-6.50); %Basophils 0.1 % (0.0-1.0); %Lymphocytes 7.4 % (21.0-51.0); %Monocytes 7.5 % (0.0-10.0); Hemoglobin 13.8 g/dL (12.0-16.0); Mean Corpuscular HGB CONC 31.4 g/dL (32.0-36.0); Mean Corpuscular Hemoglobin 32.7 pg (27.0-31.0); Mean Platelet Volume 7.3 fL (7.4-10.4); Platelet Count 242 thou/uL (130-400); RBC Distribution Width 12.9 % (11.5-14.5); Red Blood Cell (RBC) Count 4.22 mill/uL (4.20-5.40); White Blood Cell (WBC) Count 12.5 thou/uL (4.8-10.8)
[2020-09-27] MEDS ORDERED: Lorazepam 2 MG/ML VIAL ONE ×2 (12:04→13:18)
[2020-09-27 12:27] LABS: ALT (SGPT) 21 U/L (8-55); AST (SGOT) 21 U/L (5-34); Albumin 3.6 g/dL (3.5-5.0); Alkaline Phosphatase 67 U/L (40-110); Anion Gap 10 mmol/L (10-20); BUN (Urea Nitrogen) 28 mg/dL (9.8-20.1); Bilirubin, Total 0.2 mg/dL (0.2-1.2); Calc. Creatinine Clearance 0 mL/min (70-130); Calcium 8.2 mg/dL (7.8-10.44); Carbon Dioxide 35 mmol/L (22-29); Chloride 100 mmol/L (98-107); Globulin 2.1 g/dL (2.4-3.5); Glucose 146 mg/dL (70-105); Potassium 4.2 mmol/L (3.5-5.1); Protein, Total 5.7 g/dL (6.0-8.3); Sodium 141 mmol/L (136-145)
[2020-09-27 12:52] LABS: CKMB 7.7 ng/mL (0-6.6)
[2020-09-27 13:13] LABS: SARS-CoV-2 NAA Rapid Test Not Detected (NotDetected)
[2020-09-27] MEDS ORDERED: Aspirin 300 MG Suppository ONE (13:18)
--- NOTE | 2020-09-27 14:23 | PDOC.HHP ---
Hospitalist HPI - History of Present Illness Shortness of breath History of Present Illness: Patient is a 55-year-old female with a history of tobacco abuse, crack cocaine smoking and severe COPD. Patient was just released from this facility days ago after being admitted with COPD exacerbation. Patient reports over the last 2 days she has become increasingly short of breath to the point that she can ba rely speak. She has a cough that is been productive however she has a difficult time fully expectorating the sputum because it hangs in her throat. She has been taking her medications. She also continues to smoke. She has cut her crack cocaine smoking to 1 dime bag per day. She said previously she was using for 5. Patient apparently called EMS due to her dyspnea. Apparently the patient was placed on CPAP by EMS. When she was unable to tolerate that well they gave her 40 mg of ketamine. She also received 125 mg of IV Solu-Medrol. Patient had a sitter outside the room. When I asked her if she was suicidal she told me she was not. She said that she is saying so because she wants [facility] to come reevaluate her. She says that during the Covid pandemic people have been dropped out of the [facility] system. Apparently this is formed on follow-up. She cannot get her very large dose of Seroquel and trazodone to help her sleep at night because of that. She feels like this is the way that she needs to go about getting them to come reassess her and get her back into their system so that she can get her sleep medications. ED Course: In the emergency department the patient received magnesium, Ativan 2 mg x 2, albuterol and aspirin Hospitalist ROS - Review of Systems Constitutional: denies: fever, chills, sweats Respiratory: reports: cough, shortness of breath, SOB with excertion, sputum, wheezing Cardiovascular: denies: chest pain, palpitations, orthopnea Gastrointestinal: denies: nausea, vomiting, abdominal pain, diarrhea, constipation Genitourinary: denies: dysuria, frequency All other systems reviewed; all pertinent +/- noted in HPI/Subj - Medication Medications: CURRENT MEDICATIONS WedSep 27, 2020 11:24 RADHA Keyes Klara traZODone TABLET : Strength - 300 mg : ORAL Patient Dose: 400 mg Oral once a day (at bedtime). SEROquel TABLET : Strength - 200 mg : ORAL Patient Dose: 1 tab(s) Oral once a day (at bedtime). albuterol AEROSOL (GRAM) : Strength - 90 mcg : INHALATION Patient Dose: 1 inhalation null 2 times a day. predniSONE 10 mg : Strength - tablet : ORAL Patient Dose: 10 mg Oral.Take 5 pills by mouth for five days as a taper Hospitalist History - Past Medical History Other Medical History: COPD, chronic low back pain, Irlanda's granulomatosis, rheumatoid arthritis, schizophrenia/bipolar - Past Surgical History Other Surgical History: Surgery on her right index finger, right ankle, right knee, C-spine fusion - Family History Family History: reports: no pertinent history - Social History Smoking Status: Current every day smoker Alcohol: reports: None Drugs: reports: cocaine (Smokes crack cocaine) - Exam General - other findings: Patient is a bit hyper animated. Very tachypneic. Choppy sentences Eye: PERRL ENT: normocephalic atraumatic ENT - other findings: Poor dentition Neck: JVD (Significant) Heart: RRR, no murmur, no gallops, no rubs, normal peripheral pulses Respiratory: rales, wheezes Respiratory - other findings: Diminished Gastrointestinal: soft, non-tender, non-distended, normal bowel sounds, no palpable masses, no hepatomegaly, no splenomegaly, no bruit Extremities: no cyanosis, no clubbing, no edema Skin: normal turgor Neurological: no focal deficits Musculoskeletal: normal tone, normal strength, no muscle wasting Psychiatric: normal affect Psychiatric - other findings: She is a bit hyper animated Hospitalist Results - Labs Result Diagrams: 09/27/20 11:50 09/27/20 11:50 Lab results: WBC 12.5 thou/uL (4.8-10.8) H 09/27/20 11:50 Hgb 13.8 g/dL (12.0-16.0) 09/27/20 11:50 Hct 43.9 % (36.0-47.0) 09/27/20 11:50 MCV 104.0 fL (78.0-98.0) H 09/27/20 11:50 Plt Count 242 thou/uL (130-400) 09/27/20 11:50 Neutrophils % 84.0 % (42.0-75.0) H 09/27/20 11:50 Sodium 141 mmol/L (136-145) 09/27/20 11:50 Potassium 4.2 mmol/L (3.5-5.1) 09/27/20 11:50 Chloride 100 mmol/L (98-107) 09/27/20 11:50 Carbon Dioxide 35 mmol/L (22-29) H 09/27/20 11:50 BUN 28 mg/dL (9.8-20.1) H 09/27/20 11:50 Creatinine 0.77 mg/dL (0.6-1.1) 09/27/20 11:50 Glucose 146 mg/dL (70-105) H 09/27/20 11:50 Calcium 8.2 mg/dL (7.8-10.44) 09/27/20 11:50 Total Bilirubin 0.2 mg/dL (0.2-1.2) 09/27/20 11:50 AST 21 U/L (5-34) 09/27/20 11:50 ALT 21 U/L (8-55) 09/27/20 11:50 Alkaline Phosphatase 67 U/L (40-110) 09/27/20 11:50 CK-MB (CK-2) 7.7 ng/mL (0-6.6) H* 09/27/20 11:50 Troponin I 0.051 ng/mL (< 0.028) H 09/27/20 11:50 B-Natriuretic Peptide 729.6 pg/mL (0-100) H 09/27/20 11:50 Serum Total Protein 5.7 g/dL (6.0-8.3) L 09/27/20 11:50 Albumin 3.6 g/dL (3.5-5.0) 09/27/20 11:50 - Radiology Interpretation Chest x-ray Status: image reviewed by me, report reviewed by me (Consistent with COPD) Hospitalist H&P A/P - Problem (1) Acute on chronic respiratory failure with hypoxemia Code(s): J96.21 - ACUTE AND CHRONIC RESPIRATORY FAILURE WITH HYPOXIA Status: Acute (2) COPD exacerbation Code(s): J44.1 - CHRONIC OBSTRUCTIVE PULMONARY DISEASE W (ACUTE) EXACERBATION Status: Acute (3) Anxiety and depression Code(s): F41.9 - ANXIETY DISORDER, UNSPECIFIED; F32.9 - MAJOR DEPRESSIVE DISORDER, SINGLE EPISODE, UNSPECIFIED Status: Chronic (4) Bipolar disorder Code(s): F31.9 - BIPOLAR DISORDER, UNSPECIFIED Status: Chronic (5) Cocaine abuse Code(s): F14.10 - COCAINE ABUSE, UNCOMPLICATED Status: Chronic (6) Dyslipidemia Code(s): E78.5 - HYPERLIPIDEMIA, UNSPECIFIED Status: Chronic (7) Moderate protein-calorie malnutrition Code(s): E44.0 - MODERATE PROTEIN-CALORIE MALNUTRITION Status: Chronic (8) Tobacco abuse Code(s): Z72.0 - TOBACCO USE Status: Chronic (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 Give supplemental oxygen. Treat the underlying conditions COPD exacerbation: Bronchodilators, steroids. Supplemental oxygen as needed. Rocephin. Does seem to be some component of bronchitis. Attempt to get sputum cultures. Bipolar disorder: Patient denies any suicidality at this time for me. By her own admission any mention of suicidality is primarily a ploy to get [facility] to plug her back into their system so she can get her sleep meds. I will give her the Seroquel. Reviewing her pharmacy history it appears as though she does not fact take 200 mg of Seroquel at night along with 200 mg of trazodone. Current record indicates that she is on 400 mg of trazodone at night but I cannot substantiate that. I will give her the Seroquel dose and half of the trazodone dose for now. Tobacco abuse: Patient is well aware of her need to stop. She understands its damaging her lungs further and causing these exacerbations. Nicotine patch Cocaine abuse: Patient has been tapering her crack smoking down to 1 dime bag per day. History of Irlanda's and rheumatoid arthritis: Reported in the history. Patient does not appear to be on any medications for this at this time. She should be adequately covered with the current steroids. Certainly may need some further investigation into the history of these diagnoses. DVT prophylaxis: Enoxaparin. PUD prophylaxis: Because of her steroids we will put her on a PPI.
[2020-09-27 15:29] LABS: Troponin I 0.042 ng/mL (< 0.028)
[2020-09-27 17:23] VITALS: BMI 19.3
[2020-09-27] MEDS: cefTRIAXone\\ROCEPHIN 1 GM in Sodium Chloride 0.9% 100 ML IVPB SCH (18:08)
[2020-09-27] MEDS: methylPREDNISolone Sod Succ 40 MG VIAL IVP SCH (18:10)
[2020-09-27 18:20] LABS: Troponin I 0.037 ng/mL (< 0.028)
[2020-09-27] MEDS ORDERED: Furosemide 20 MG/2 ML VIAL SLOW IVP SCH (18:30)
[2020-09-27] MEDS: Arformoterol 15 MCG/2 ML NEB NEB SCH (18:36)
[2020-09-27 19:01] LABS: Actual Bicarbonate (HCO3a) 34.8 mEq/L (22-28); Base Excess (BEa) 5.9 mEq/L (-2.0 to +3.0); Calcium, Ionized (arterial) 1.08 mmol/L (1.12-1.30); Carboxyhemoglobin (COHb) 2.8 gm% (0.0-3.0); Hemoglobin (Hb) 15.1 g/dL (12.0-16.0); O2 Tension (PaO2), arterial 67.1 mmHg (80.0-100.0); Potassium - ABG Lab 4.33 mmol/L (3.70-5.30); pH, Arterial 7.32 (7.35-7.45)
[2020-09-27 19:12] LABS: CO2 Tension 69.5 mmHg (35.0-45.0); Puncture Site LRA
[2020-09-27 19:13] LABS: ALV-art Gradient 74.185 mmHg (0-20)
[2020-09-27] MEDS: Nicotine 14 MG PATCH TD SCH (20:15)
[2020-09-27] MEDS: traZODone HCl 50 MG TAB PO PRN (20:15)
[2020-09-27] MEDS: Acetaminophen 325 MG TAB PO PRN (20:15)
[2020-09-27] MEDS ORDERED: Famotidine 20 MG TAB PO SCH (21:00)
[2020-09-28] MEDS: methylPREDNISolone Sod Succ 40 MG VIAL IVP SCH ×4 (00:22→19:34)
[2020-09-28 05:45] LABS: Anion Gap 12 mmol/L (10-20); BUN (Urea Nitrogen) 29 mg/dL (9.8-20.1); Calc. Creatinine Clearance 68 mL/min (70-130); Calcium 8.6 mg/dL (7.8-10.44); Carbon Dioxide 35 mmol/L (22-29); Chloride 96 mmol/L (98-107); Glucose 189 mg/dL (70-105); Potassium 4.2 mmol/L (3.5-5.1); Sodium 139 mmol/L (136-145)
[2020-09-28 06:38] LABS: Band 7 % (5-11); Hemoglobin 13.7 g/dL (12.0-16.0); Lymphocytes 5 % (21-51); MDiff Complete? YES; Mean Corpuscular HGB CONC 30.6 g/dL (32.0-36.0); Mean Corpuscular Hemoglobin 31.2 pg (27.0-31.0); Mean Platelet Volume 7.2 fL (7.4-10.4); Monocytes 1 % (0-10); Neutrophil 87 % (42-75); Platelet Count 233 thou/uL (130-400); Platelet Morphology Comment Appears Adequate; RBC Distribution Width 12.7 % (11.5-14.5); Red Blood Cell (RBC) Count 4.39 mill/uL (4.20-5.40); White Blood Cell (WBC) Count 12.9 thou/uL (4.8-10.8)
[2020-09-28] MEDS: Arformoterol 15 MCG/2 ML NEB NEB SCH ×2 (07:59→18:37)
[2020-09-28] MEDS: Enoxaparin Sodium 40 MG/0.4 ML SYRINGE SC SCH (08:08)
[2020-09-28] MEDS ORDERED: FLU VACC QS2020-21(6MOS UP)/PF 60 MCG/0.5 ML SYRINGE IM ONE (09:00)
--- NOTE | 2020-09-28 10:38 | PDOC.HOSPP ---
- Subjective Encounter Date: 09/28/20 Subjective: Coughing. Shortness of breath and wheezing. Patient states she feels better today. She is now tolerating oxygen by nasal cannula at 1 to 2 L good oxygen saturation. She was dyspneic with speaking. No fever. She is tolerating feeding. - Objective Vital Signs & Weight: Vital Signs (12 hours) Temp Pulse Resp BP Pulse Ox 09/28/20 08:01 94 L 09/28/20 07:59 94 22 H 94 L 09/28/20 07:55 94 22 H 94 L 09/28/20 07:50 98.4 F 110 H 28 H 159/85 H 97 09/28/20 05:54 97.9 F 106 H 24 H 131/72 97 09/28/20 03:25 98 09/28/20 02:27 99 09/28/20 00:00 114 H 22 H 145/81 H 93 L Weight Weight 123 lb I&O: 09/27/20 09/28/20 09/29/20 06:59 06:59 06:59 Intake Total 1495 Output Total 550 Balance 945 Result Diagrams: 09/28/20 05:10 09/28/20 05:10 Radiology Reviewed by me: Yes (Chest x-ray: Chronic changes. No acute infiltrate.) Hospitalist ROS - Medication Medications: Active Medications Generic Name Dose Route Start Last Admin Trade Name Freq PRN Reason Stop Dose Admin Acetaminophen 650 mg 09/27/20 14:15 09/27/20 20:15 Acetaminophen 325 Mg Tab PO 650 mg Q4H PRN Administration Headache/Fever/Mild Pain (1-3) Albuterol/Ipratropium 3 ml 09/27/20 22:30 09/28/20 07:55 Ipratropium/Albuterol Sulfate 3 Ml Neb NEB 3 ml [id number] LORIN Administration Arformoterol Tartrate 15 mcg 09/27/20 18:30 09/28/20 07:59 Arformoterol 15 Mcg/2 Ml Neb NEB 15 mcg BID-RT LORIN Administration Enoxaparin Sodium 40 mg 09/28/20 09:00 09/28/20 08:08 Enoxaparin Sodium 40 Mg/0.4 Ml Syringe SC 40 mg 0900 LORIN Administration Ceftriaxone Sodium 1 gm/ 100 mls @ 200 mls/hr 09/27/20 15:00 09/27/20 18:08 Sodium Chloride IVPB 100 mls Q24HR LORIN Administration Methylprednisolone Sodium Succinate 40 mg 09/27/20 18:00 09/28/20 05:35 Methylprednisolone Sod Succ 40 Mg Vial IVP 40 mg Q6HR LORIN Administration Nicotine 14 mg 09/27/20 21:00 09/27/20 20:15 Nicotine 14 Mg Patch TD 14 mg Q24HR LORIN Administration Pantoprazole Sodium 40 mg 09/28/20 09:00 09/28/20 08:09 Pantoprazole 40 Mg Tab PO 40 mg DAILY LORIN Administration Quetiapine Fumarate 200 mg 09/27/20 21:00 09/27/20 20:15 Quetiapine Fumarate 200 Mg Tab PO 200 mg HS LORIN Administration Trazodone HCl 100 mg 09/27/20 14:35 09/27/20 20:15 Trazodone Hcl 50 Mg Tab PO 100 mg HS PRN Administration Insomnia - Exam General - other findings: Moderate respiratory distress. Eye: anicteric sclera ENT: normocephalic atraumatic, moist mucosa Neck: supple, no JVD Heart: RRR (Tachycardic) Respiratory: no rales, wheezes (Mild bilateral scattered wheezes.) Gastrointestinal: soft, non-tender, non-distended, normal bowel sounds Extremities: no cyanosis, no edema Skin: normal turgor, no rashes Neurological: no weakness, no focal deficits Musculoskeletal: normal tone, normal strength Psychiatric: normal affect, normal behavior, A&O x 3 Hosp A/P (1) Acute on chronic respiratory failure with hypoxemia Code(s): J96.21 - ACUTE AND CHRONIC RESPIRATORY FAILURE WITH HYPOXIA Status: Acute (2) COPD exacerbation Code(s): J44.1 - CHRONIC OBSTRUCTIVE PULMONARY DISEASE W (ACUTE) EXACERBATION Status: Acute (3) Anxiety and depression Code(s): F41.9 - ANXIETY DISORDER, UNSPECIFIED; F32.9 - MAJOR DEPRESSIVE DISORDER, SINGLE EPISODE, UNSPECIFIED Status: Chronic (4) Bipolar disorder Code(s): F31.9 - BIPOLAR DISORDER, UNSPECIFIED Status: Chronic (5) Cocaine abuse Code(s): F14.10 - COCAINE ABUSE, UNCOMPLICATED Status: Chronic (6) Troponin level elevated Code(s): R77.8 - OTHER SPECIFIED ABNORMALITIES OF PLASMA PROTEINS Status: Acute - Plan We will continue scheduled bronchodilators, IV steroids for COPD exacerbation. Also continue IV Rocephin for infective bronchitis. Patient troponin was mildly elevated but trended flat. This is likely secondary to demand ischemia from cocaine use and COPD exacerbation with hypoxia. Not ACS. Mood appears stable. Continue current dose of Seroquel and trazodone. Follow-up with mental health as an outpatient. Monitor and treat for COPD exacerbation for 1 more day. Assess clinically for improvement in the a.m. for possible discharge.
[2020-09-28] MEDS: Acetaminophen 325 MG TAB PO PRN (12:11)
--- NOTE | 2020-09-28 16:00 | CON ---
DATE OF CONSULTATION: 09/28/2020 HISTORY OF PRESENT ILLNESS: Daniel is a 55-year-old female. She is not routinely seen in our office. She has been seen and she has been admitted to the hospital in the past. She has a long history of drug use and is still using cocaine and still smoking cigarettes. She was recently with COPD exacerbation, discharged home, went back to smoking cigarettes, actually smoking cocaine again. She was admitted in respiratory distress, required BiPAP, and is better now. She is close to her baseline. She is chronically short of breath. PAST MEDICAL HISTORY: Noncontributory. FAMILY HISTORY: Noncontributory. SOCIAL HISTORY: Noncontributory. REVIEW OF SYSTEMS: Noncontributory. PHYSICAL EXAMINATION: GENERAL: She was sound asleep when I walked in (she had been complaining that she did not have sleeping medicines at home). VITAL SIGNS: She is afebrile, heart rate is 95, respiratory rates in the 20s, oximetry is 94% to 96% on room air, and blood pressure 150/79. HEAD AND NECK: Unremarkable. LUNGS: Remarkable for distant breath sounds. HEART: Regular rhythm. ABDOMEN: Soft. EXTREMITIES: Without asymmetry. LABORATORY DATA: White count 12.9, hemoglobin 13.7, platelets 233,000. Sodium 139, potassium 4.2, chloride 96, bicarb 35, BUN 29, creatinine 0.81. She has a sitter in the room with her, but denies suicidal ideation. She says she came to the hospital because she was short of breath, but also she told the admitting physician that she was not able to get her Seroquel and trazodone from the [facility], which led also to a reason to come to the hospital. Her complaints are not being able to sleep at night, more likely related to her cocaine use, her nicotine use, and not having those medications. In any event, she is getting close to her baseline in my opinion. Blood gas last night showed a pH 7.32, CO2 of 69, pO2 of 67 on 3 L, this probably far off her baseline. I explained to her that she would not live another year if she continued to smoke cocaine and cigarettes. She can continue with nebulized treatments every 4 hours. Her steroids can be converted to p.o. steroids in the morning. If she remains stable, she can be switched to p.o. antibiotics. She has no infiltrates on her chest x-ray to suggest a pneumonia. I am sure she has impurities in her lungs from the crack cocaine in addition to the COPD smoking. I will see her as needed in the future. This is a 50 min. consult with greater than 50% of the time spent on the unit with coordination of care. Job ID: [id number] GISEL
[2020-09-28] MEDS: cefTRIAXone\\ROCEPHIN 1 GM in Sodium Chloride 0.9% 100 ML IVPB SCH (16:24)
[2020-09-28] MEDS: Nicotine 14 MG PATCH TD SCH (20:25)
[2020-09-28] MEDS: traZODone HCl 50 MG TAB PO PRN (20:38)
[2020-09-29] MEDS: methylPREDNISolone Sod Succ 40 MG VIAL IVP SCH ×2 (00:08→05:37)
[2020-09-29 06:21] LABS: Anion Gap 12 mmol/L (10-20); BUN (Urea Nitrogen) 29 mg/dL (9.8-20.1); Calc. Creatinine Clearance 67 mL/min (70-130); Calcium 8.2 mg/dL (7.8-10.44); Carbon Dioxide 33 mmol/L (22-29); Chloride 98 mmol/L (98-107); Glucose 159 mg/dL (70-105); Potassium 4.2 mmol/L (3.5-5.1); Sodium 139 mmol/L (136-145)
[2020-09-29 06:46] LABS: Band 5 % (5-11); Hypochromia SLIGHT = 6-15 cells (100X) (0-5/hpf); Lymphocytes 3 % (21-51); MDiff Complete? YES; Macrocytosis SLIGHT = 6-15 cells (100X) (0-5/hpf); Mean Corpuscular HGB CONC 30.6 g/dL (32.0-36.0); Mean Corpuscular Hemoglobin 31.1 pg (27.0-31.0); Mean Platelet Volume 7.4 fL (7.4-10.4); Monocytes 3 % (0-10); Neutrophil 89 % (42-75); Platelet Count 230 thou/uL (130-400); Platelet Morphology Comment Appears Adequate; RBC Distribution Width 13.1 % (11.5-14.5); Red Blood Cell (RBC) Count 4.51 mill/uL (4.20-5.40); White Blood Cell (WBC) Count 20.6 thou/uL (4.8-10.8)
[2020-09-29] MEDS: Arformoterol 15 MCG/2 ML NEB NEB SCH ×2 (07:30→22:19)
[2020-09-29] MEDS: Enoxaparin Sodium 40 MG/0.4 ML SYRINGE SC SCH (09:16)
[2020-09-29] MEDS: Doxycycline 100 MG CAP PO SCH ×2 (09:16→20:07)
[2020-09-29] MEDS ORDERED: Digoxin 0.125 MG TAB PO PRN (11:01)
[2020-09-29] MEDS: Lorazepam 1 MG TAB PO PRN (12:30)
--- NOTE | 2020-09-29 13:26 | PDOC.HOSPP ---
- Subjective Encounter Date: 09/29/20 Encounter Time: 09:50 Subjective: Patient complaining of tingling in the extremities. Her heart rate is little slightly still higher. Sitter at bedside. No suicidal ideation. Cocaine abuse. - Objective Vital Signs & Weight: Vital Signs (12 hours) Temp Pulse Resp BP Pulse Ox 09/29/20 12:30 130 H 09/29/20 12:15 97.4 F L 126 H 24 H 150/80 H 94 L 09/29/20 10:54 98 09/29/20 08:55 98.7 F 118 H 18 156/84 H 100 09/29/20 07:42 97 09/29/20 07:30 97 09/29/20 03:46 98.6 F 118 H 24 H 122/66 95 09/29/20 01:43 97 Weight Weight 123 lb I&O: 09/28/20 09/29/20 09/30/20 06:59 06:59 06:59 Intake Total 4105 Output Total 2250 Balance 1855 Result Diagrams: 09/29/20 05:44 09/29/20 05:44 Hospitalist ROS - Medication Medications: Active Medications Generic Name Dose Route Start Last Admin Trade Name Freq PRN Reason Stop Dose Admin Acetaminophen 650 mg 09/27/20 14:15 09/28/20 12:11 Acetaminophen 325 Mg Tab PO 650 mg Q4H PRN Administration Headache/Fever/Mild Pain (1-3) Albuterol/Ipratropium 3 ml 09/27/20 22:30 09/29/20 10:54 Ipratropium/Albuterol Sulfate 3 Ml Neb NEB 3 ml [id number] LORIN Administration Arformoterol Tartrate 15 mcg 09/27/20 18:30 09/29/20 07:30 Arformoterol 15 Mcg/2 Ml Neb NEB 15 mcg BID-RT LORIN Administration Digoxin 0.125 mg 09/29/20 11:01 09/29/20 12:30 Digoxin 0.125 Mg Tab PO 0.125 mg Q6H PRN Administration HR> 90 Doxycycline Hyclate 100 mg 09/29/20 09:00 09/29/20 09:16 Doxycycline 100 Mg Cap PO 100 mg BID LORIN Administration Enoxaparin Sodium 40 mg 09/28/20 09:00 09/29/20 09:16 Enoxaparin Sodium 40 Mg/0.4 Ml Syringe SC 40 mg 0900 LORIN Administration Lorazepam 1 mg 09/29/20 11:00 09/29/20 12:30 Lorazepam 1 Mg Tab PO 1 mg Q8H PRN Administration AGITATION Nicotine 14 mg 09/27/20 21:00 09/28/20 20:25 Nicotine 14 Mg Patch TD 14 mg Q24HR LORIN Administration Pantoprazole Sodium 40 mg 09/28/20 09:00 09/29/20 09:16 Pantoprazole 40 Mg Tab PO 40 mg DAILY LORIN Administration Quetiapine Fumarate 200 mg 09/27/20 21:00 09/28/20 20:25 Quetiapine Fumarate 200 Mg Tab PO 200 mg HS LORIN Administration Trazodone HCl 100 mg 09/27/20 14:35 09/28/20 20:38 Trazodone Hcl 50 Mg Tab PO 100 mg HS PRN Administration Insomnia - Exam General Appearance: NAD, awake alert Eye: PERRL ENT: normocephalic atraumatic Neck: supple Heart: RRR, normal peripheral pulses Respiratory: CTAB, normal chest expansion Gastrointestinal: soft, normal bowel sounds Neurological: cranial nerve grossly intact, no focal deficits Psychiatric: normal affect, normal behavior, A&O x 3 Hosp A/P - Plan (1) Acute on chronic respiratory failure with hypoxemia Code(s): J96.21 - ACUTE AND CHRONIC RESPIRATORY FAILURE WITH HYPOXIA Status: Acute (2) COPD exacerbation Code(s): J44.1 - CHRONIC OBSTRUCTIVE PULMONARY DISEASE W (ACUTE) EXACERBATION Status: Acute (3) Anxiety and depression Code(s): F41.9 - ANXIETY DISORDER, UNSPECIFIED; F32.9 - MAJOR DEPRESSIVE DISORDER, SINGLE EPISODE, UNSPECIFIED Status: Chronic (4) Bipolar disorder Code(s): F31.9 - BIPOLAR DISORDER, UNSPECIFIED Status: Chronic (5) Cocaine abuse Code(s): F14.10 - COCAINE ABUSE, UNCOMPLICATED Status: Chronic (6) Troponin level elevated Code(s): R77.8 - OTHER SPECIFIED ABNORMALITIES OF PLASMA PROTEINS Status: Acute - Plan We will continue scheduled bronchodilators, IV steroids for COPD exacerbation. Also continue IV Rocephin for infective bronchitis. Patient troponin was mildly elevated but trended flat. This is likely secondary to demand ischemia from cocaine use and COPD exacerbation with hypoxia. Not ACS. Mood appears stable. Continue current dose of Seroquel and trazodone. Tachycardia possibly due to anxiety as well as troponin in the system. Since she has cocaine in the system we will try to address her tachycardia with digoxin and/or labetalol as needed. Mental health MR-need to evaluate her. She is medically stable to be evaluated by them.
[2020-09-29] MEDS ORDERED: Labetalol HCl 100 MG/20 ML VIAL SLOW IVP PRN (13:28)
[2020-09-29] MEDS: Acetaminophen 325 MG TAB PO PRN ×2 (15:22→20:08)
[2020-09-29] MEDS: traZODone HCl 50 MG TAB PO PRN (20:07)
[2020-09-29] MEDS: Nicotine 14 MG PATCH TD SCH (20:08)
[2020-09-29] MEDS: Digoxin 0.125 MG TAB PO PRN (20:08)
[2020-09-30] MEDS: Lorazepam 1 MG TAB PO PRN (01:48)
[2020-09-30] MEDS: Digoxin 0.125 MG TAB PO PRN ×2 (05:28→18:56)
[2020-09-30] MEDS: Arformoterol 15 MCG/2 ML NEB NEB SCH ×2 (08:17→19:28)
[2020-09-30] MEDS: predniSONE 20 MG TAB PO SCH (09:13)
[2020-09-30] MEDS: Doxycycline 100 MG CAP PO SCH ×2 (09:13→20:54)
[2020-09-30] MEDS: Enoxaparin Sodium 40 MG/0.4 ML SYRINGE SC SCH (09:13)
--- NOTE | 2020-09-30 13:32 | PDOC.HOSPP ---
- Subjective Encounter Date: 09/30/20 Encounter Time: 10:50 Subjective: Patient has significant shortness of breath even with talking she does have a home oxygen. She lives alone but her son stays with her. Patient is in no position to consider for going home. - Objective Vital Signs & Weight: Vital Signs (12 hours) Temp Pulse Resp BP Pulse Ox 09/30/20 11:30 98 F 125 H 20 133/72 100 09/30/20 10:08 100 09/30/20 10:00 124 H 20 09/30/20 08:17 126 H 32 H 09/30/20 07:15 98.3 F 121 H 22 H 137/79 100 09/30/20 05:28 125 H 09/30/20 05:21 100 09/30/20 04:00 97.7 F 119 H 22 H 120/64 100 09/30/20 02:36 97 09/30/20 01:50 132 H 18 97 Weight Weight 123 lb I&O: 09/29/20 09/30/20 10/01/20 06:59 06:59 06:59 Intake Total 4105 2850 Output Total 2250 1250 Balance 1855 1600 Result Diagrams: 09/29/20 05:44 09/29/20 05:44 Hospitalist ROS - Medication Medications: Active Medications Generic Name Dose Route Start Last Admin Trade Name Freq PRN Reason Stop Dose Admin Acetaminophen 650 mg 09/27/20 14:15 09/29/20 20:08 Acetaminophen 325 Mg Tab PO 650 mg Q4H PRN Administration Headache/Fever/Mild Pain (1-3) Albuterol/Ipratropium 3 ml 09/27/20 22:30 09/30/20 10:00 Ipratropium/Albuterol Sulfate 3 Ml Neb NEB 3 ml [id number] LORIN Administration Arformoterol Tartrate 15 mcg 09/27/20 18:30 09/30/20 08:17 Arformoterol 15 Mcg/2 Ml Neb NEB 15 mcg BID-RT LORIN Administration Digoxin 0.125 mg 09/29/20 13:29 09/30/20 05:28 Digoxin 0.125 Mg Tab PO 0.125 mg Q8H PRN Administration HR> 90 Doxycycline Hyclate 100 mg 09/29/20 09:00 09/30/20 09:13 Doxycycline 100 Mg Cap PO 100 mg BID LORIN Administration Enoxaparin Sodium 40 mg 09/28/20 09:00 09/30/20 09:13 Enoxaparin Sodium 40 Mg/0.4 Ml Syringe SC 40 mg 0900 LORIN Administration Lorazepam 1 mg 09/29/20 11:00 09/30/20 01:48 Lorazepam 1 Mg Tab PO 1 mg Q8H PRN Administration AGITATION Nicotine 14 mg 09/27/20 21:00 09/29/20 20:08 Nicotine 14 Mg Patch TD 14 mg Q24HR LORIN Administration Pantoprazole Sodium 40 mg 09/28/20 09:00 09/30/20 09:13 Pantoprazole 40 Mg Tab PO 40 mg DAILY LORIN Administration Prednisone 40 mg 09/30/20 08:00 09/30/20 09:13 Prednisone 20 Mg Tab PO 40 mg QAM-WM LORIN Administration Quetiapine Fumarate 200 mg 09/27/20 21:00 09/29/20 20:15 Quetiapine Fumarate 200 Mg Tab PO 200 mg HS LORIN Administration Trazodone HCl 100 mg 09/27/20 14:35 09/29/20 20:07 Trazodone Hcl 50 Mg Tab PO 100 mg HS PRN Administration Insomnia - Exam General Appearance: NAD, awake alert Eye: PERRL ENT: normocephalic atraumatic Neck: supple Heart: no murmur, normal peripheral pulses Heart - other findings: Tachycardic Respiratory: CTAB, normal chest expansion, tachypneic Gastrointestinal: soft, non-distended, normal bowel sounds Neurological: cranial nerve grossly intact, no focal deficits Musculoskeletal: generalized weakness Psychiatric: normal affect, normal behavior, A&O x 3 Hosp A/P - Plan (1) Acute on chronic respiratory failure with hypoxemia Code(s): J96.21 - ACUTE AND CHRONIC RESPIRATORY FAILURE WITH HYPOXIA Status: Acute (2) COPD exacerbation Code(s): J44.1 - CHRONIC OBSTRUCTIVE PULMONARY DISEASE W (ACUTE) EXACERBATION Status: Acute (3) Anxiety and depression Code(s): F41.9 - ANXIETY DISORDER, UNSPECIFIED; F32.9 - MAJOR DEPRESSIVE DISORDER, SINGLE EPISODE, UNSPECIFIED Status: Chronic (4) Bipolar disorder Code(s): F31.9 - BIPOLAR DISORDER, UNSPECIFIED Status: Chronic (5) Cocaine abuse Code(s): F14.10 - COCAINE ABUSE, UNCOMPLICATED Status: Chronic (6) Troponin level elevated Code(s): R77.8 - OTHER SPECIFIED ABNORMALITIES OF PLASMA PROTEINS Status: Acute - Plan We will continue scheduled bronchodilators, IV steroids for COPD exacerbation. Also continue IV Rocephin for infective bronchitis. Patient troponin was mildly elevated but trended flat. This is likely secondary to demand ischemia from cocaine use and COPD exacerbation with hypoxia. Not ACS. Mood appears stable. Continue current dose of Seroquel and trazodone. Tachycardia possibly due to anxiety as well as troponin in the system. Since she has cocaine in the system we will try to address her tachycardia with digoxin and/or labetalol as needed. Mental health MR-need to evaluate her. She is medically stable to be evaluated by them. Probable cocaine withdrawal versus drug withdrawal Tachycardia and tachypnea and mild elevated blood pressure --We are continuing with her Seroquel and trazodone -Added scheduled Ativan -Scheduled Lopressor as her blood pressure would be able to handle the Lopressor and I am trying to reduce her heart rate -If she is hemodynamically stable and able to ambulate with oxygen then probable discharge with home health versus rehab. Physical therapy consult placed Regarding mental health EMR--it appears that she will be following with them as an outpatient. They did evaluate her via tele conversation
[2020-09-30] MEDS: Lorazepam 1 MG TAB PO SCH ×2 (14:28→20:54)
--- NOTE | 2020-09-30 15:46 | PDOC.BPN ---
- Brief Progress Note Peripheral neuropathy -Patient is complaining of tingling numbness worsening on her lower extremities.-We will check the iron study B12 folate vitamin D as well as TSH. -Initiated low-dose amitriptyline at nighttime
[2020-09-30] MEDS: Acetaminophen 325 MG TAB PO PRN (18:57)
[2020-09-30] MEDS: Metoprolol Tartrate 25 MG TAB PO SCH (20:54)
[2020-09-30] MEDS: Amitriptyline HCl 25 MG TAB PO SCH (20:54)
[2020-09-30] MEDS: Nicotine 14 MG PATCH TD SCH (20:55)
[2020-10-01 04:32] LABS: #Basophils 0.1 thou/uL (0.0-0.2); #Eosinphils 0.1 thou/uL (0.0-0.7); #Lymphocytes 1.4 thou/uL (1.20-3.40); #Monocytes 0.7 thou/uL (0.11-0.59); #Neutrophils 11.9 thou/uL (1.40-6.50); %Basophils 0.4 % (0.0-1.0); %Eosinophils 0.7 % (0.0-10.0); %Monocytes 5.1 % (0.0-10.0); %Neutrophils 83.8 % (42.0-75.0); Hemoglobin 13.3 g/dL (12.0-16.0); Mean Corpuscular HGB CONC 32.2 g/dL (32.0-36.0); Mean Corpuscular Hemoglobin 33.4 pg (27.0-31.0); Mean Platelet Volume 7.4 fL (7.4-10.4); Platelet Count 200 thou/uL (130-400); RBC Distribution Width 13.2 % (11.5-14.5); Red Blood Cell (RBC) Count 3.97 mill/uL (4.20-5.40); White Blood Cell (WBC) Count 14.2 thou/uL (4.8-10.8)
[2020-10-01 04:52] LABS: Anion Gap 12 mmol/L (10-20); BUN (Urea Nitrogen) 28 mg/dL (9.8-20.1); Calc. Creatinine Clearance 76 mL/min (70-130); Calcium 8.8 mg/dL (7.8-10.44); Carbon Dioxide 32 mmol/L (22-29); Chloride 98 mmol/L (98-107); Glucose 79 mg/dL (70-105); Potassium 4.1 mmol/L (3.5-5.1); Sodium 138 mmol/L (136-145)
[2020-10-01 05:13] LABS: Vitamin D, 25 Hydroxy 8.2 ng/ml (> 30.0)
[2020-10-01 05:18] LABS: Thyroid Stimulating Hormone 1.3964 uIU/mL (0.35-4.94)
[2020-10-01] MEDS: Lorazepam 1 MG TAB PO SCH ×3 (06:37→20:34)
[2020-10-01] MEDS: Arformoterol 15 MCG/2 ML NEB NEB SCH ×2 (07:27→23:18)
[2020-10-01] MEDS: Metoprolol Tartrate 25 MG TAB PO SCH ×2 (08:13→20:34)
[2020-10-01] MEDS: Doxycycline 100 MG CAP PO SCH ×2 (08:14→20:33)
[2020-10-01] MEDS: Furosemide 40 MG/4 ML VIAL SLOW IVP SCH (08:14)
[2020-10-01] MEDS: Enoxaparin Sodium 40 MG/0.4 ML SYRINGE SC SCH (08:14)
[2020-10-01] MEDS: predniSONE 20 MG TAB PO SCH (08:14)
--- NOTE | 2020-10-01 08:22 | RAD ---
Portable frontal chest radiograph: 10/01/2020 COMPARISON: 09/27/2020 HISTORY: Shortness of breath, difficulty breathing FINDINGS: Heart and mediastinal contours are stable. Stable mild increased linear interstitial densit y with pulmonary hyperinflation. No focal consolidation or alveolar edema. Cervical spine fusion hardware present. IMPRESSION: Chronic findings as above. No focal consolidation or alveolar edema.
--- NOTE | 2020-10-01 12:46 | PDOC.HOSPP ---
- Subjective Encounter Date: 10/01/20 Encounter Time: 10:10 Subjective: Patient is wondering whether she would be able to go to the long term or assisted living. Feels she is not strong enough to go and live alone. - Objective Vital Signs & Weight: Vital Signs (12 hours) Temp Pulse Pulse Pulse Resp BP BP 10/01/20 12:05 99.1 F 107 H 18 10/01/20 11:34 104 H 105 H 127/74 132/81 10/01/20 10:43 102 H 18 10/01/20 07:27 10/01/20 07:26 117 H 20 10/01/20 07:20 98.1 F 116 H 20 10/01/20 04:00 97.7 F 105 H 18 10/01/20 02:09 98 16 BP Pulse Ox Pulse Ox 10/01/20 12:05 127/77 94 L 10/01/20 11:34 100 10/01/20 10:43 96 10/01/20 07:27 94 L 10/01/20 07:26 94 L 10/01/20 07:20 135/71 95 10/01/20 04:00 116/72 95 10/01/20 02:09 Weight Weight 136 lb I&O: 09/30/20 10/01/20 10/02/20 06:59 06:59 06:59 Intake Total 2850 2600 240 Output Total 1250 3700 Balance 1600 -1100 240 Result Diagrams: 10/01/20 04:11 10/01/20 04:11 Hospitalist ROS - Medication Medications: Active Medications Generic Name Dose Route Start Last Admin Trade Name Coreyq PRN Reason Stop Dose Admin Acetaminophen 650 mg 09/27/20 14:15 09/30/20 18:57 Acetaminophen 325 Mg Tab PO 650 mg Q4H PRN Administration Headache/Fever/Mild Pain (1-3) Albuterol/Ipratropium 3 ml 09/27/20 22:30 10/01/20 10:43 Ipratropium/Albuterol Sulfate 3 Ml Neb NEB 3 ml [id number] LORIN Administration Amitriptyline HCl 25 mg 09/30/20 21:00 09/30/20 20:54 Amitriptyline Hcl 25 Mg Tab PO 25 mg HS LORIN Administration Arformoterol Tartrate 15 mcg 09/27/20 18:30 10/01/20 07:27 Arformoterol 15 Mcg/2 Ml Neb NEB 15 mcg BID-RT LORIN Administration Digoxin 0.125 mg 09/29/20 13:29 09/30/20 18:56 Digoxin 0.125 Mg Tab PO 0.125 mg Q8H PRN Administration HR> 90 Doxycycline Hyclate 100 mg 09/29/20 09:00 10/01/20 08:14 Doxycycline 100 Mg Cap PO 100 mg BID LORIN Administration Enoxaparin Sodium 40 mg 09/28/20 09:00 10/01/20 08:14 Enoxaparin Sodium 40 Mg/0.4 Ml Syringe SC 40 mg 0900 LORIN Administration Furosemide 40 mg 10/01/20 09:00 10/01/20 08:14 Furosemide 40 Mg/4 Ml Vial SLOW IVP 40 mg DAILY LORIN Administration Lorazepam 1 mg 09/30/20 14:00 10/01/20 06:37 Lorazepam 1 Mg Tab PO 1 mg Q8HR LORIN Administration Metoprolol Tartrate 12.5 mg 09/30/20 21:00 10/01/20 08:13 Metoprolol Tartrate 25 Mg Tab PO 12.5 mg BID LORIN Administration Nicotine 14 mg 09/27/20 21:00 09/30/20 20:55 Nicotine 14 Mg Patch TD 14 mg Q24HR LORIN Administration Pantoprazole Sodium 40 mg 09/28/20 09:00 10/01/20 08:13 Pantoprazole 40 Mg Tab PO 40 mg DAILY LORIN Administration Prednisone 40 mg 09/30/20 08:00 10/01/20 08:14 Prednisone 20 Mg Tab PO 40 mg QAM-WM LORIN Administration Quetiapine Fumarate 200 mg 09/27/20 21:00 09/30/20 20:55 Quetiapine Fumarate 200 Mg Tab PO 200 mg HS LORIN Administration Trazodone HCl 100 mg 09/27/20 14:35 09/29/20 20:07 Trazodone Hcl 50 Mg Tab PO 100 mg HS PRN Administration Insomnia Hospitalist Exam Vitals: Vital Signs (12 hours) Temp Pulse Pulse Pulse Resp BP BP 10/01/20 12:05 99.1 F 107 H 18 10/01/20 11:34 104 H 105 H 127/74 132/81 10/01/20 10:43 102 H 18 10/01/20 07:27 10/01/20 07:26 117 H 20 10/01/20 07:20 98.1 F 116 H 20 10/01/20 04:00 97.7 F 105 H 18 10/01/20 02:09 98 16 BP Pulse Ox Pulse Ox 10/01/20 12:05 127/77 94 L 10/01/20 11:34 100 10/01/20 10:43 96 10/01/20 07:27 94 L 10/01/20 07:26 94 L 10/01/20 07:20 135/71 95 10/01/20 04:00 116/72 95 10/01/20 02:09 Weight Weight 136 lb General Appearance: NAD, awake alert Eye: PERRL ENT: normocephalic atraumatic Neck: supple Heart: RRR, normal peripheral pulses Respiratory: CTAB, normal chest expansion Gastrointestinal: soft, normal bowel sounds Extremities: 1+ LE edema Neurological: cranial nerve grossly intact, no focal deficits Psychiatric: normal affect, normal behavior, A&O x 3 Hosp A/P - Plan (1) Acute on chronic respiratory failure with hypoxemia Code(s): J96.21 - ACUTE AND CHRONIC RESPIRATORY FAILURE WITH HYPOXIA Status: A cute (2) COPD exacerbation Code(s): J44.1 - CHRONIC OBSTRUCTIVE PULMONARY DISEASE W (ACUTE) EXACERBATION Status: Acute (3) Anxiety and depression Code(s): F41.9 - ANXIETY DISORDER, UNSPECIFIED; F32.9 - MAJOR DEPRESSIVE DISORDER, SINGLE EPISODE, UNSPECIFIED Status: Chronic (4) Bipolar disorder Code(s): F31.9 - BIPOLAR DISORDER, UNSPECIFIED Status: Chronic (5) Cocaine abuse Code(s): F14.10 - COCAINE ABUSE, UNCOMPLICATED Status: Chronic (6) Troponin level elevated Code(s): R77.8 - OTHER SPECIFIED ABNORMALITIES OF PLASMA PROTEINS Status: Acute - Plan We will continue scheduled bronchodilators, IV steroids for COPD exacerbation. Also continue IV Rocephin for infective bronchitis. Patient troponin was mildly elevated but trended flat. This is likely secondary to demand ischemia from cocaine use and COPD exacerbation with hypoxia. Not ACS. Mood appears stable. Continue current dose of Seroquel and trazodone. Tachycardia possibly due to anxiety as well as troponin in the system. Since she has cocaine in the system we will try to address her tachycardia with digoxin and/or labetalol as needed. Mental health MR-need to evaluate her. She is medically stable to be evaluated by them. Probable cocaine withdrawal versus drug withdrawal Tachycardia and tachypnea and mild elevated blood pressure --We are continuing with her Seroquel and trazodone -Added scheduled Ativan -Scheduled Lopressor as her blood pressure would be able to handle the Lopressor and I am trying to reduce her heart rate -If she is hemodynamically stable and able to ambulate with oxygen then probable discharge with home health versus rehab. Physical therapy consult placed Regarding mental health EMR--it appears that she will be following with them as an outpatient. They did evaluate her via tele conversation. She is clinically stable I think she probably have mild withdrawal with her drug abuse her tachycardia seems to be better now with starting Lopressor. She needs a placement. rehabilitation program manager consult placed
[2020-10-01] MEDS: Amitriptyline HCl 25 MG TAB PO SCH (20:33)
[2020-10-01] MEDS: traZODone HCl 50 MG TAB PO PRN (20:43)
[2020-10-01] MEDS: Nicotine 14 MG PATCH TD SCH (21:08)
[2020-10-02] MEDS: Lorazepam 1 MG TAB PO SCH ×2 (04:53→14:21)
[2020-10-02] MEDS: Arformoterol 15 MCG/2 ML NEB NEB SCH (07:13)
[2020-10-02] MEDS: Doxycycline 100 MG CAP PO SCH (08:43)
[2020-10-02] MEDS: Metoprolol Tartrate 25 MG TAB PO SCH (08:44)
[2020-10-02] MEDS: Furosemide 40 MG/4 ML VIAL SLOW IVP SCH (08:44)
[2020-10-02] MEDS: Enoxaparin Sodium 40 MG/0.4 ML SYRINGE SC SCH (08:44)
[2020-10-02] MEDS: predniSONE 20 MG TAB PO SCH (08:44)
[2020-10-02] MEDS ORDERED: Folic Acid/Vit B Comp W-C PO SCH (09:00)
[2020-10-02] MEDS ORDERED: Cholecalciferol 1,000 UNITS (25 MCG) TAB PO SCH (09:00)
[2020-10-02 12:09] VITALS: TEMP 98.5
[2020-10-02 12:15] VITALS: BP 122/79
--- NOTE | 2020-10-02 14:05 | PDOC.DS.DS ---
Provider Date of Admission: 09/29/20 16:44 Admitting Provider: Sameer Cast MD Primary Care Physician: Denzel Sin Course Hospital Course: 55-year-old female presented with (1) Acute on chronic respiratory failure with hypoxemia Code(s): J96.21 - ACUTE AND CHRONIC RESPIRATORY FAILURE WITH HYPOXIA Status: Acute (2) COPD exacerbation Code(s): J44.1 - CHRONIC OBSTRUCTIVE PULMONARY DISEASE W (ACUTE) EXACERBATION Status: Acute (3) Anxiety and depression Code(s): F41.9 - ANXIETY DISORDER, UNSPECIFIED; F32.9 - MAJOR DEPRESSIVE DISORDER, SINGLE EPISODE, UNSPECIFIED Status: Chronic (4) Bipolar disorder Code(s): F31.9 - BIPOLAR DISORDER, UNSPECIFIED Status: Chronic (5) Cocaine abuse Code(s): F14.10 - COCAINE ABUSE, UNCOMPLICATED Status: Chronic (6) Troponin level elevated Code(s): R77.8 - OTHER SPECIFIED ABNORMALITIES OF PLASMA PROTEINS Status: Acute - Plan We will continue scheduled bronchodilators, IV steroids for COPD exacerbation. Also continue IV Rocephin for infective bronchitis and transitioned to doxycycline twice a day Patient troponin was mildly elevated but trended flat. This is likely secondary to demand ischemia from cocaine use and COPD exacerbation with hypoxia. Not ACS. Mood appears stable. Continue current dose of Seroquel and trazodone. Tachycardia possibly due to anxiety and/or cocaine in the system Mental health MR-evaluated her and she will follow-up as an outpatient. She is hemodynamically stable. She does have a home oxygen. She will be disc harged home today with home health. Discharge time over 30 minutes. Resuscitation Status: 09/27/20 14:15 Resuscitation Status Routine Resuscitation Status: FULL: Full Resuscitation Lab Results: 10/01/20 04:11 10/01/20 04:11 Abnormal Lab Results - Last 48 hrs 10/01/20 04:11: Carbon Dioxide 32 H, BUN 28 H 10/01/20 04:11: WBC 14.2 H, RBC 3.97 L, MCV 104.0 H, MCH 33.4 H, Neutrophils % 83.8 H, Lymphocytes % 10.0 L, Neutrophils # 11.9 H, Monocytes # 0.7 H 10/01/20 04:11: Folate 6.40 L 10/01/20 04:11: 25-OH Vitamin D Total 8.2 L Microbiology - Entire Visit 09/28/20 07:00 Sputum - Unspecified Respiratory Culture - Final Serratia marcescens Vitals: Vital Signs (12 hours) Temp Pulse Pulse Pulse Resp BP BP 10/02/20 12:09 98.5 F 96 19 10/02/20 09:43 103 H 113 H 122/79 130/75 10/02/20 07:52 98.3 F 113 H 18 10/02/20 07:13 10/02/20 07:12 107 H 18 10/02/20 04:00 97.4 F L 106 H 24 H 10/02/20 02:54 BP Pulse Ox Pulse Ox 10/02/20 12:09 114/70 96 10/02/20 09:43 96 10/02/20 07:52 130/75 93 L 10/02/20 07:13 99 10/02/20 07:12 99 10/02/20 04:00 125/69 93 L 10/02/20 02:54 98 Weight Weight 134 lb Physical Exam: The patient was seen and examined on the day of discharge. Plan Prescriptions: Amitriptyline HCl [Elavil] 25 mg PO HS 30 Days #30 tab Metoprolol Tartrate [Lopressor] 12.5 mg PO BID 30 Days #60 tab Folic Acid/Vit B Comp W-C [Nephro-Ebenezer] 1 tab PO DAILY 30 Days #30 tab Doxycycline [Vibramycin] 100 mg PO BID 7 Days #14 cap Cholecalciferol [Vitamin D3] 2,000 units PO DAILY 30 Days #30 tab Home Medications: Medication Instructions Recorded Confirmed Type QUEtiapine Fumarate [SEROquel] 200 mg PO HS 08/10/17 09/27/20 History traZODone HCl [Trazodone HCl] 200 mg PO HS 08/10/17 09/27/20 History Amitriptyline HCl [Elavil] 25 mg PO HS 30 Days #30 tab 10/02/20 Rx Cholecalciferol [Vitamin D3] 2,000 units PO DAILY 30 Days #30 10/02/20 Rx tab Doxycycline [Vibramycin] 100 mg PO BID 7 Days #14 cap 10/02/20 Rx Folic Acid/Vit B Comp W-C 1 tab PO DAILY 30 Days #30 tab 10/02/20 Rx [Nephro-Ebenezer] Metoprolol Tartrate [Lopressor] 12.5 mg PO BID 30 Days #60 tab 10/02/20 Rx Allergies: Sulfa (Sulfonamide Antibiotics) Allergy (Verified 09/09/20 21:00) Discharge Instructions:: PCP follow-up in 1 week Activity:: Activity as Tolerated Nourishment:: Regular Diet Referrals: Ray Valdivia MD [Primary Care Provider] - Disposition: HOME Quality CORE MEASURES:: N/A
== END 2020-10-02 15:15 | disposition home health service (06) | DRG 189 ==
LOC: ERS 11:11 → ERHOLD 13:44 → 2NO 16:39 → 2SW 21:15 → OBSVTOIN 09-29 16:44 → 2NO 09-29 19:57
PROVIDERS: ADMIT Internal Medicine; ATTEND Internal Medicine
PROC: 5A09457 Assistance with Respiratory Ventilation, 24-96 Consecutive Hours, Continuous Positive Airway Pressure (ICD-10-PCS; principal; 2020-09-27)
DX: J96.21 Acute and chronic respiratory failure with hypoxia (principal); J44.1 Chronic obstructive pulmonary disease with (acute) exacerbation; E44.0 Moderate protein-calorie malnutrition; M31.30 Wegener's granulomatosis without renal involvement; I24.8 Other forms of acute ischemic heart disease; G89.29 Other chronic pain; M54.9 Dorsalgia, unspecified; M06.9 Rheumatoid arthritis, unspecified; E78.00 Pure hypercholesterolemia, unspecified; F31.9 Bipolar disorder, unspecified; M54.5 Low back pain; F14.10 Cocaine abuse, uncomplicated; F41.9 Anxiety disorder, unspecified; F17.210 Nicotine dependence, cigarettes, uncomplicated; G62.9 Polyneuropathy, unspecified; R77.8 Other specified abnormalities of plasma proteins; Z98.890 Other specified postprocedural states; Z88.2 Allergy status to sulfonamides; Z79.899 Other long term (current) drug therapy; Z79.51 Long term (current) use of inhaled steroids; E78.5 Hyperlipidemia, unspecified; J40 Bronchitis, not specified as acute or chronic; Z20.822 Contact with and (suspected) exposure to COVID-19
CPT/HCPCS: 0240U; 36415; 36600; 71045; 80048; 80053; 82306; 82553; 82607; 82746; 82805; 83735; 83880; 84443; 84484; 85025; 87070; 87077; 87186; 87205; 93005; 94640; 94644; 94660; 96365; 96372; 96375; 96376; G0378; J0696; J1650; J1940; J2060; J2920; J3475; J3490; J7512; J7611; J7620

== ENCOUNTER 2020-10-03 17:38 | Observation (INO) | payer MEDICARE ==
[2020-10-03 18:31] LABS: #Eosinphils 0.2 thou/uL (0.0-0.7); #Lymphocytes 1.3 thou/uL (1.20-3.40); #Monocytes 0.6 thou/uL (0.11-0.59); #Neutrophils 11.4 thou/uL (1.40-6.50); %Basophils 0.3 % (0.0-1.0); %Eosinophils 1.2 % (0.0-10.0); %Lymphocytes 9.3 % (21.0-51.0); %Monocytes 4.6 % (0.0-10.0); %Neutrophils 84.6 % (42.0-75.0); Hemoglobin 13.6 g/dL (12.0-16.0); Mean Corpuscular HGB CONC 29.6 g/dL (32.0-36.0); Mean Platelet Volume 7.4 fL (7.4-10.4); Platelet Count 190 thou/uL (130-400); RBC Distribution Width 13.4 % (11.5-14.5); White Blood Cell (WBC) Count 13.5 thou/uL (4.8-10.8)
[2020-10-03] MEDS ORDERED: cefTRIAXone\\ROCEPHIN 1 GM VIAL ONE (18:41)
[2020-10-03 18:48] LABS: ALT (SGPT) 71 U/L (8-55); AST (SGOT) 61 U/L (5-34); Albumin 3.6 g/dL (3.5-5.0); Alkaline Phosphatase 59 U/L (40-110); Anion Gap 14 mmol/L (10-20); BUN (Urea Nitrogen) 37 mg/dL (9.8-20.1); Bilirubin, Total 0.5 mg/dL (0.2-1.2); CK (CPK) 57 U/L (29-168); Calc. Creatinine Clearance 0 mL/min (70-130); Calcium 8.7 mg/dL (7.8-10.44); Carbon Dioxide 35 mmol/L (22-29); Chloride 97 mmol/L (98-107); Globulin 2.4 g/dL (2.4-3.5); Glucose 139 mg/dL (70-105); Potassium 4.9 mmol/L (3.5-5.1); Sodium 141 mmol/L (136-145)
[2020-10-03 18:54] LABS: Hypochromia SLIGHT = 6-15 cells (100X) (0-5/hpf); MDiff Complete? YES; Macrocytosis SLIGHT = 6-15 cells (100X) (0-5/hpf); Platelet Morphology Comment Appears Adequate; Polychromasia SLIGHT = 2-3 cells (100X) (0-2/hpf); Stomatocytes MODERATE= 6-15 cells (100X) (0-1/hpf); Target Cells SLIGHT = 2-5 cells (100X) (0-1/hpf)
[2020-10-03] MEDS ORDERED: Azithromycin 500 MG VIAL ONE (19:10)
[2020-10-03 19:20] LABS: CKMB 7.1 ng/mL (0-6.6)
[2020-10-03] MEDS ORDERED: Aspirin Chewable 81 MG TAB ONE (19:52)
[2020-10-03 22:39] VITALS: BMI 21.9
[2020-10-03] MEDS ORDERED: Guaifenesin DM 100-10/5 ML UDCUP PO PRN (22:41)
[2020-10-03] MEDS ORDERED: hydrALAZINE 20 MG/ML VIAL SLOW IVP PRN (22:41)
[2020-10-03] MEDS ORDERED: Ondansetron PF 4 MG/2 ML Vial IVP PRN (22:41)
[2020-10-03] MEDS ORDERED: Promethazine HCl 12.5 MG in Sodium Chloride 0.9% 50 ML IVPB PRN (22:41)
[2020-10-03] MEDS ORDERED: Labetalol HCl 100 MG/20 ML VIAL SLOW IVP PRN (22:41)
[2020-10-03] MEDS ORDERED: cloNIDine 0.1 MG TAB PO PRN (22:41)
[2020-10-03] MEDS ORDERED: Azithromycin 500 MG in Syringe 0 ML IVPB SCH (22:45)
[2020-10-03] MEDS ORDERED: Electrolyte Replacement Protocol 1 EACH FS SCH (22:45)
[2020-10-03] MEDS ORDERED: traZODone HCl 50 MG TAB PO SCH (23:45)
[2020-10-04 01:27] LABS: Troponin I 0.014 ng/mL (< 0.028)
[2020-10-04 04:56] LABS: #Lymphocytes 0.5 thou/uL (1.20-3.40); #Monocytes 0.5 thou/uL (0.11-0.59); %Basophils 0.2 % (0.0-1.0); %Eosinophils 0.2 % (0.0-10.0); %Lymphocytes 4.5 % (21.0-51.0); %Monocytes 4.8 % (0.0-10.0); %Neutrophils 90.4 % (42.0-75.0); Hemoglobin 12.7 g/dL (12.0-16.0); Mean Corpuscular HGB CONC 31.4 g/dL (32.0-36.0); Mean Corpuscular Hemoglobin 33.3 pg (27.0-31.0); Mean Platelet Volume 7.6 fL (7.4-10.4); Platelet Count 166 thou/uL (130-400); Red Blood Cell (RBC) Count 3.82 mill/uL (4.20-5.40); White Blood Cell (WBC) Count 11.1 thou/uL (4.8-10.8)
[2020-10-04 05:49] LABS: BUN (Urea Nitrogen) 35 mg/dL (9.8-20.1); Calc. Creatinine Clearance 85 mL/min (70-130); Calcium 8.4 mg/dL (7.8-10.44); Glucose 135 mg/dL (70-105); Magnesium 2.2 mg/dL (1.6-2.6)
[2020-10-04 05:59] LABS: Anion Gap 15 mmol/L (10-20); Carbon Dioxide 36 mmol/L (22-29); Chloride 97 mmol/L (98-107); Potassium 5.2 mmol/L (3.5-5.1); Sodium 143 mmol/L (136-145)
[2020-10-04] MEDS: methylPREDNISolone Sod Succ 40 MG VIAL IVP SCH ×3 (06:47→21:40)
[2020-10-04] MEDS: Mometasone 100 MCG/Formoterol 5 MCG 120 PUFF INHALER INH SCH ×2 (08:52→18:45)
[2020-10-04] MEDS: Ipratropium Bromide 2.5 ml Neb NEB SCH ×3 (08:52→18:39)
[2020-10-04] MEDS: Carvedilol 3.125 MG TAB PO SCH ×2 (08:57→17:01)
[2020-10-04] MEDS: Folic Acid/Vit B Comp W-C PO SCH (08:57)
[2020-10-04] MEDS: Famotidine 20 MG TAB PO SCH ×2 (08:58→21:39)
[2020-10-04] MEDS: Heparin 5,000 UNITS/ML VIAL SC SCH ×2 (08:58→21:38)
[2020-10-04] MEDS: Acetaminophen 325 MG TAB PO PRN ×2 (11:48→17:01)
[2020-10-04] MEDS: Azithromycin 500 MG in Sodium Chloride 0.9% 250 ML 250 ML IVPB SCH (17:57)
[2020-10-04] MEDS: traZODone HCl 50 MG TAB PO SCH (21:39)
[2020-10-05] MEDS: methylPREDNISolone Sod Succ 40 MG VIAL IVP SCH (05:35)
[2020-10-05] MEDS: Ipratropium Bromide 2.5 ml Neb NEB SCH ×3 (07:40→18:21)
[2020-10-05] MEDS: Mometasone 100 MCG/Formoterol 5 MCG 120 PUFF INHALER INH SCH ×2 (07:41→18:22)
[2020-10-05] MEDS: Carvedilol 3.125 MG TAB PO SCH ×2 (09:01→17:10)
[2020-10-05] MEDS: Folic Acid/Vit B Comp W-C PO SCH (09:01)
[2020-10-05] MEDS: Heparin 5,000 UNITS/ML VIAL SC SCH ×2 (09:01→20:00)
[2020-10-05] MEDS: Famotidine 20 MG TAB PO SCH ×2 (09:01→20:01)
[2020-10-05 09:16] LABS: #Lymphocytes 0.8 thou/uL (1.20-3.40); #Monocytes 0.3 thou/uL (0.11-0.59); #Neutrophils 14.3 thou/uL (1.40-6.50); %Basophils 0.1 % (0.0-1.0); %Eosinophils 0.1 % (0.0-10.0); %Lymphocytes 5.5 % (21.0-51.0); %Monocytes 1.9 % (0.0-10.0); %Neutrophils 92.5 % (42.0-75.0); Hemoglobin 13.9 g/dL (12.0-16.0); Mean Corpuscular HGB CONC 30.8 g/dL (32.0-36.0); Mean Corpuscular Hemoglobin 32.1 pg (27.0-31.0); Mean Platelet Volume 7.6 fL (7.4-10.4); Platelet Count 208 thou/uL (130-400); RBC Distribution Width 12.9 % (11.5-14.5); Red Blood Cell (RBC) Count 4.33 mill/uL (4.20-5.40); White Blood Cell (WBC) Count 15.4 thou/uL (4.8-10.8)
[2020-10-05 09:33] LABS: Anion Gap 10 mmol/L (10-20); BUN (Urea Nitrogen) 28 mg/dL (9.8-20.1); Calc. Creatinine Clearance 86 mL/min (70-130); Calcium 8.4 mg/dL (7.8-10.44); Carbon Dioxide 36 mmol/L (22-29); Chloride 95 mmol/L (98-107); Glucose 188 mg/dL (70-105); Sodium 136 mmol/L (136-145)
[2020-10-05] MEDS: Acetaminophen/Codeine 30-300mg Tablet PO PRN (11:19)
[2020-10-05] MEDS ORDERED: Lorazepam 0.5 MG TAB PO PRN (16:53)
[2020-10-05] MEDS: Azithromycin 500 MG in Sodium Chloride 0.9% 250 ML 250 ML IVPB SCH (18:27)
[2020-10-05] MEDS: traZODone HCl 50 MG TAB PO SCH (20:00)
[2020-10-05] MEDS ORDERED: Amitriptyline HCl 25 MG TAB PO SCH (21:00)
[2020-10-06 05:48] LABS: #Basophils 0.1 thou/uL (0.0-0.2); #Eosinphils 0.1 thou/uL (0.0-0.7); #Lymphocytes 1.8 thou/uL (1.20-3.40); #Monocytes 0.9 thou/uL (0.11-0.59); #Neutrophils 9.8 thou/uL (1.40-6.50); %Basophils 0.5 % (0.0-1.0); %Eosinophils 0.9 % (0.0-10.0); %Monocytes 6.9 % (0.0-10.0); %Neutrophils 77.6 % (42.0-75.0); Hemoglobin 13.4 g/dL (12.0-16.0); Mean Corpuscular HGB CONC 30.9 g/dL (32.0-36.0); Mean Corpuscular Hemoglobin 32.2 pg (27.0-31.0); Mean Platelet Volume 7.4 fL (7.4-10.4); Platelet Count 208 thou/uL (130-400); RBC Distribution Width 12.9 % (11.5-14.5); Red Blood Cell (RBC) Count 4.17 mill/uL (4.20-5.40); White Blood Cell (WBC) Count 12.6 thou/uL (4.8-10.8)
[2020-10-06 06:13] LABS: Carbon Dioxide 27 mmol/L (22-29)
[2020-10-06 06:14] LABS: Anion Gap 16 mmol/L (10-20); BUN (Urea Nitrogen) 30 mg/dL (9.8-20.1); Calc. Creatinine Clearance 79 mL/min (70-130); Calcium 7.9 mg/dL (7.8-10.44); Chloride 100 mmol/L (98-107); Glucose 99 mg/dL (70-105); Potassium 4.9 mmol/L (3.5-5.1); Sodium 138 mmol/L (136-145)
[2020-10-06] MEDS: Ipratropium Bromide 2.5 ml Neb NEB SCH ×2 (07:55→13:42)
[2020-10-06] MEDS: Mometasone 100 MCG/Formoterol 5 MCG 120 PUFF INHALER INH SCH (07:56)
[2020-10-06] MEDS ORDERED: methylPREDNISolone Sod Succ 40 MG VIAL IVP SCH (09:00)
[2020-10-06] MEDS: Folic Acid/Vit B Comp W-C PO SCH (10:08)
[2020-10-06] MEDS: Acetaminophen/Codeine 30-300mg Tablet PO PRN (10:09)
[2020-10-06] MEDS: Famotidine 20 MG TAB PO SCH (10:09)
[2020-10-06] MEDS: Heparin 5,000 UNITS/ML VIAL SC SCH (10:11)
[2020-10-06] MEDS: Carvedilol 3.125 MG TAB PO SCH (10:11)
[2020-10-06 11:55] VITALS: BP 119/75; TEMP 98.2
== END 2020-10-06 11:30 | disposition home or self-care (01) ==
LOC: ERS 17:38 → 2SW 19:40
PROVIDERS: ADMIT Internal Medicine; ATTEND Internal Medicine
DX: J44.1 Chronic obstructive pulmonary disease with (acute) exacerbation (principal); J96.21 Acute and chronic respiratory failure with hypoxia; F14.10 Cocaine abuse, uncomplicated; R77.8 Other specified abnormalities of plasma proteins; G62.9 Polyneuropathy, unspecified; F41.9 Anxiety disorder, unspecified; F31.9 Bipolar disorder, unspecified; F17.210 Nicotine dependence, cigarettes, uncomplicated; M31.30 Wegener's granulomatosis without renal involvement; G89.29 Other chronic pain; M54.9 Dorsalgia, unspecified; E78.5 Hyperlipidemia, unspecified; Z79.52 Long term (current) use of systemic steroids; Z79.899 Other long term (current) drug therapy; Z88.2 Allergy status to sulfonamides; Z99.81 Dependence on supplemental oxygen
CPT/HCPCS: 36415; 71045; 80048; 80053; 82550; 82553; 83605; 83735; 84484; 85025; 93005; 93306; 94640; 94760; 96365; 96366; 96367; 96372; 96375; 96376; G0378; J0456; J0696; J1644; J2920; J7050; J7620